=== PATIENT | male | born 1965 | race Caucasian/White ===

== ENCOUNTER → 2020-07-26 15:56 | Outpatient (CLI) | payer MEDICARE, MEDICAID, SELFPAY ==
[2016-04-30 12:49] VITALS: BMI 29.2
[2020-07-26 16:58] LABS: Absolute Lymphocyte Count 2.26 X10^3/uL (0.83-4.51); Absolute Neutrophil Count 4.5 X10^3/uL (2.0-7.7); Basophil# 0.04 X10^3/uL; Basophil% 0.5 % (0-1); Eosinophil# 0.14 X10^3/uL; Eosinophils% 1.8 % (0-5); Hematocrit 54.5 % (40-54); Hemoglobin 17.7 g/dL (13.0-16.5); Lymphocyte # 2.26 X10^3/ul (4.0); Lymphocyte % 29.4 % (19-41); Mean Corp Hgb Conc 32.5 g/dL (32-36); Mean Corpuscular Hgb 28.4 pg (27.0-32.0); Mean Corpuscular Volume 87.5 fL (80-94); Mean Platelet Vol. 12.3 fl (6.2-12.0); Monocyte# 0.69 X10^3/uL; NRBC Flagged by Analyzer 0 % (0-5); Neutrophil # 4.54 X10^3/uL (2.7-7.7); Neutrophil % 58.9 % (47-70); Platelet Count 202 K/mm3 (150-450); RBC Distribution Width CV 13.1 % (11.6-14.6); RBC Distribution Width SD 41.5 fl (35.1-43.9); Red Blood Count 6.23 M/mm3 (4.6-6.2); White Blood Count 7.7 K/mm3 (4.4-11.0)
[2020-07-26 17:40] LABS: AST(SGOT) 20 U/L (15-37); Alanine Aminotransfer ALT/SGPT 49 U/L (16-61); Albumin, Serum 3.8 g/dL (3.2-5.0); Alkaline Phosphatase 80 U/L (45-117); Anion Gap 5 (5-15); BUN 12 mg/dL (7-18); BUN/Creat Ratio 10.2 RATIO (10-20); Calcium,Total 9.7 mg/dL (8.5-10.1); Chloride 105 mmol/L (98-107); Creatinine, Serum 1.18 mg/dL (0.70-1.30); EST Glomerular Filtration Rate 68 mL/min (>60); Est Glom Filt Rate - Afr Amer 82 mL/min (>60); Globulin 3.9 g/dL (2.2-4.2); Glucose 355 mg/dL (74-106); PSA,Total - Annual Screen 1.49 ng/mL (0.00-4.00); Potassium 4.1 mmol/L (3.5-5.1); Protein, Total 7.7 g/dL (6.4-8.2); Sodium Level 137 mmol/L (136-145); Thyroid Stim Hormone (TSH) 1.23 uIU/mL (0.358-3.74)
[2020-07-27 09:17] LABS: Hepatitis C Antibody Non-Reactive (Nonreactive); Vitamin D,25 Hydroxy 10.4 ng/mL
== END ==
PROVIDERS: PCP Family Medicine Geriatric Medicine; Referring Provider Family Medicine Geriatric Medicine; Visit Provider Family Medicine Geriatric Medicine
DX: E55.9 Vitamin D deficiency, unspecified (principal); R53.83 Other fatigue; Z12.5 Encounter for screening for malignant neoplasm of prostate; Z13.89 Encounter for screening for other disorder
CPT/HCPCS: 36415; 80053; 82306; 84153; 84443; 85025; 86803; G0103

== ENCOUNTER → 2020-08-25 07:43 | Outpatient (CLI) | payer MEDICARE, MEDICAID, SELFPAY ==
--- NOTE | 2020-08-25 07:49 | CT_ITS ---
STUDY: LOW DOSE CT LUNG CANCER SCREENING REASON FOR EXAM: Male, 55 years old. CANCER SCREENING. The patient smoked 1 pack per day for 30 years. RADIATION DOSAGE (If Supplied By Facility): CTDIvol = ( 3.02 ) mGy, DLP = ( 101.94 ) mGycm TECHNIQUE: No contrast was administered. Low dose technique was utilized (average mAS-38 and kVp 120). 1.25 mm axial source images with a slice interval of 1.25-mm were reconstructed in lung windows. 2.5 mm axial source images with a slice interval of 2.5-mm were reconstructed in lung windows. 5.0 mm axial source images with a slice interval of 5.0-mm were reconstructed in soft tissue windows. Nodule measured using lung windows on PACS and/or independent workstation with automated measurement of minimum and maximum diameter. Nodule measurement reported as average diameter rounded to the nearest whole number. Growth is defined as an increase ins size of greater than 1.5 mm. COMPARISON: None. NODULES: There is a 1.3 cm x 1.4 cm noncalcified pleural-based round nodule in the right lower lobe abutting the pleural surface. This was seen on a prior CT scan of the abdomen and pelvis dated 04/30/2016 and 10/21/2015. Emphysema: Minimal emphysematous changes. Aorta: Minimal atherosclerotic plaque of the aortic arch. Coronary arteries: Coronary artery calcification. Mediastinal nodes: Small mediastinal lymph nodes. Other chest and abdominal findings: CT/Low Dose CT Lung Screening IMPRESSION: Lung-RADS category 3 - Continue screening with LDCT in 6 months. IMPORTANT NOTES FOR USE: ACR Lung-RADS Version 1.0 Assessment Categories Release Date: September 27, 2013 Category: Coded 0-4 bases on nodule(s) with highest degree of suspicion. Negative screen is defined as categories 1 and 2; a positive screen is defined as categories 3 and 4. Category 3 and 4A nodules that are unchanged on interval CT should be coded as category 2, and individuals returned to screening in 12 months. Category 4X: Category 3 or 4 nodules with additional imaging findings that increase the suspicion of lung cancer, such as spiculation, GGN that doubles in size in 1 year, enlarged lymph notes, etc. Category Modifiers: S (significant finding unrelated to lung cancer) and C (prior history of treated lung cancer) may be added to the 0-4 Lung-RADS Electronically Signed: Keshawn Bolivar MD at 11:26 EDT , Service support ,
== END ==
PROVIDERS: PCP Family Medicine Geriatric Medicine; Referring Provider Family Medicine Geriatric Medicine; Visit Provider Family Medicine Geriatric Medicine
DX: Z12.2 Encounter for screening for malignant neoplasm of respiratory organs (principal); Z87.891 Personal history of nicotine dependence
CPT/HCPCS: 71271

== ENCOUNTER → 2020-10-06 11:23 | Outpatient (CLI) | payer MEDICARE, MEDICAID, SELFPAY | PROVIDERS: PCP Family Medicine Geriatric Medicine; Visit Provider Family Medicine Geriatric Medicine | DX: E29.1 Testicular hypofunction (principal) | CPT/HCPCS: 36415; 84403 ==

== ENCOUNTER → 2020-11-10 10:47 | Outpatient (CLI) | payer MEDICARE, SELFPAY ==
[2016-04-30 12:49] VITALS: BMI 29.2
[2020-11-10 12:18] LABS: Absolute Lymphocyte Count 2.28 X10^3/uL (0.83-4.51); Absolute Neutrophil Count 5.8 X10^3/uL (2.0-7.7); Basophil# 0.05 X10^3/uL; Basophil% 0.6 % (0-1); Eosinophil# 0.17 X10^3/uL; Eosinophils% 1.9 % (0-5); Hematocrit 47.3 % (40-54); Hemoglobin 15.3 g/dL (13.0-16.5); Lymphocyte # 2.28 X10^3/ul (0.83-4.51); Lymphocyte % 25.3 % (19-41); Mean Corp Hgb Conc 32.3 g/dL (32-36); Mean Corpuscular Hgb 28.3 pg (27.0-32.0); Mean Corpuscular Volume 87.4 fL (80-94); Mean Platelet Vol. 11.9 fl (6.2-12.0); Monocyte# 0.67 X10^3/uL; Monocyte% 7.4 % (0-10); NRBC Flagged by Analyzer 0 % (0-5); Neutrophil % 64.4 % (47-70); Platelet Count 236 K/mm3 (150-450); RBC Distribution Width CV 14.6 % (11.6-14.6); RBC Distribution Width SD 47.2 fl (35.1-43.9); Red Blood Count 5.41 M/mm3 (4.6-6.2)
[2020-11-10 12:35] LABS: ALB/GLOB Ratio 0.9 RATIO (0.9-2.4); AST(SGOT) 18 U/L (15-37); Alanine Aminotransfer ALT/SGPT 30 U/L (16-61); Albumin, Serum 3.4 g/dL (3.2-5.0); Alkaline Phosphatase 64 U/L (45-117); Anion Gap 5 (5-15); BUN 15 mg/dL (7-18); BUN/Creat Ratio 11.6 RATIO (10-20); Calcium,Total 9.7 mg/dL (8.5-10.1); Chloride 105 mmol/L (98-107); Creatinine, Serum 1.29 mg/dL (0.70-1.30); EST Glomerular Filtration Rate 61 mL/min (>60); Est Glom Filt Rate - Afr Amer 74 mL/min (>60); Globulin 3.9 g/dL (2.2-4.2); Glucose 322 mg/dL (74-106); Potassium 4.3 mmol/L (3.5-5.1); Protein, Total 7.3 g/dL (6.4-8.2); Sodium Level 133 mmol/L (136-145); Thyroid Stim Hormone (TSH) 1.22 uIU/mL (0.358-3.74)
== END ==
PROVIDERS: PCP Family Medicine Geriatric Medicine; Visit Provider Family Medicine Geriatric Medicine
DX: E11.9 Type 2 diabetes mellitus without complications (principal); I10 Essential (primary) hypertension; F52.8 Other sexual dysfunction not due to a substance or known physiological condition
CPT/HCPCS: 36415; 80053; 84403; 84443; 85025

== ENCOUNTER 2020-12-27 06:57 | Outpatient (RCR) | payer MEDICARE, MEDICAID, SELFPAY ==
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
== END 2020-12-27 19:00 | disposition home or self-care (01) ==
LOC: PT 06:57
PROVIDERS: PCP Family Medicine Geriatric Medicine; Referring Provider Family Medicine Geriatric Medicine; Visit Provider Family Medicine Geriatric Medicine
DX: Z89.612 Acquired absence of left leg above knee (principal)
CPT/HCPCS: 97161

== ENCOUNTER → 2021-01-19 10:22 | Outpatient (CLI) | payer MEDICARE, MEDICAID, SELFPAY ==
--- NOTE | 2021-01-19 12:19 | NEURO_ITS ---
NCS and/or EMG Patient Report Ordering Doctor: Miquel Morfin Chi DATE OF SERVICE: 01/19/21 Indication: Bilateral hand numbness. History of diabetes and prior cervical decompression/fusion. Evaluate for entrapment neuropathy. Findings: Nerve conduction studies were performed in the right and left upper extremities. The right median motor study recording the abductor pollicis brevis showed a reduced amplitude, prolonged distal latency and slowed conduction velocity. The right ulnar motor study recording the abductor digiti minimi showed a markedly reduced amplitude, prolonged distal latency and slowed conduction velocity in the forearm segment (no response could be obtained above the elbow). The right median sensory response recording digit two showed a reduced amplitude, prolonged latency and markedly slowed conduction velocity. The right ulnar sensory response recording digit five was absent. The right radial sensory response recording over the extensor snuff box showed a reduced amplitude, borderline latency and mildly slowed conduction velocity. Right median-ulnar lumbrical / interosseous motor latencies showed a prolonged median latency compared to the ulnar. The left median motor study recording the abductor pollicis brevis showed a borderline amplitude, prolonged distal latency and slowed conduction velocity. The left ulnar motor study recording the abductor digiti minimi showed a reduced amplitude, slowed distal latency and slowed conduction velocity. No conduction block or focal slowing was present across the elbow. The left median sensory response recording digit two showed a reduced amplitude, prolonged latency and markedly slowed conduction velocity. The left ulnar sensory response recording digit five showed a slightly reduced amplitude, prolonged latency and slowed conduction velocity. The left radial sensory response recording over the extensor snuff box showed a reduced amplitude, normal latency and slowed conduction velocity. Left median-ulnar lumbrical / interosseous motor latencies showed a prolonged median latency compared to the ulnar. Needle EMG of the right upper extremity muscles was performed. The cervical paraspinal were not sampled due to the patient history of diabetes and the common presence of fibrillations in that population. Active denervation was seen in the abductor pollicis brevis. In the deltoid and triceps motor units were slightly large amplitude and long duration with normal recruitment. In the abductor pollicis brevis and first dorsal interosseous motor units were large amplitude and long duration with reduced recruitment. The extensor indicis proprius was normal in motor unit morphology, activation and recruitment patte rns. Needle EMG of the left upper extremity muscles was performed. Active denervation was seen in the abductor pollicis brevis and first dorsal interosseous. In the abductor pollicis brevis, flexor digitorum profundus (ulnar) and first dorsal interosseous motor units were large amplitude and long duration with reduced recruitment. The other examined muscles revealed normal motor unit morphology, activation and recruitment patterns. Impression: This is a markedly abnormal and complex study. 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 The pathophysiology is demyelinating, but there is evidence of acute and chronic secondary axonal loss. In addition there is electrophysiologic evidence of bilateral, non-localizing, ulnar neuropathies (severe on the right, moderate on the left). The reinnervation changes seen in the left flexor digitorum profundus implicates a lesion above the wrist. The chronic changes seen in the right deltoid and triceps are non-specific, but may be related to his remote cervical radiculopathy. Lastly, the diffusely low sensory amplitudes and reduced velocities are suggestive of an underlying peripheral polyneuropathy. This was not fully evaluated as it was not the indication for this study. Clinical correlation is recommended. Adrian Guerra D.O.
== END ==
PROVIDERS: PCP Family Medicine Geriatric Medicine; Referring Provider Family Medicine Geriatric Medicine; Visit Provider Family Medicine Geriatric Medicine
DX: R20.9 Unspecified disturbances of skin sensation (principal); R20.0 Anesthesia of skin
CPT/HCPCS: 95886; 95913

== ENCOUNTER → 2021-04-10 14:45 | Outpatient (CLI) | payer MEDICARE, MEDICAID, SELFPAY ==
[2021-04-10 16:14] LABS: Absolute Lymphocyte Count 2.03 X10^3/uL (0.83-4.51); Absolute Neutrophil Count 12.6 X10^3/uL (2.0-7.7); Basophil% 0.6 % (0-1); Eosinophil# 0.22 X10^3/uL; Eosinophils% 1.4 % (0-5); Hematocrit 54.4 % (40-54); Hemoglobin 17.7 g/dL (13.0-16.5); Lymphocyte # 2.03 X10^3/ul (0.83-4.51); Lymphocyte % 12.6 % (19-41); Mean Corp Hgb Conc 32.5 g/dL (32-36); Mean Corpuscular Hgb 27.4 pg (27.0-32.0); Mean Corpuscular Volume 84.3 fL (80-94); Mean Platelet Vol. 10.1 fl (6.2-12.0); Monocyte# 0.82 X10^3/uL; Monocyte% 5.1 % (0-10); NRBC Flagged by Analyzer 0 % (0-5); Neutrophil # 12.59 X10^3/uL (2.7-7.7); Neutrophil % 78.1 % (47-70); Platelet Count 316 K/mm3 (150-450); RBC Distribution Width CV 15.4 % (11.6-14.6); RBC Distribution Width SD 45.8 fl (35.1-43.9); Red Blood Count 6.45 M/mm3 (4.6-6.2); White Blood Count 16.1 K/mm3 (4.4-11.0)
[2021-04-10 16:37] LABS: Anion Gap 10 (5-15); BUN 23 mg/dL (7-18); BUN/Creat Ratio 14.7 RATIO (10-20); Calcium,Total 10.7 mg/dL (8.5-10.1); Chloride 100 mmol/L (98-107); Creatinine, Serum 1.56 mg/dL (0.70-1.30); EST Glomerular Filtration Rate 49 mL/min (>60); Est Glom Filt Rate - Afr Amer 60 mL/min (>60); Glucose 301 mg/dL (74-106); Potassium 5.2 mmol/L (3.5-5.1); Sodium Level 126 mmol/L (136-145)
[2021-04-10 17:40] LABS: M R Staph aureus DNA By PCR POSITIVE (Negative); Probe Check PASS; Staph aureus DNA By PCR POSITIVE (Negative)
== END ==
PROVIDERS: PCP Family Medicine Geriatric Medicine; Visit Provider Family Medicine Geriatric Medicine
DX: L03.90 Cellulitis, unspecified (principal); B95.62 Methicillin resistant Staphylococcus aureus infection as the cause of diseases classified elsewhere
CPT/HCPCS: 36415; 80048; 85025; 87070; 87077; 87186; 87205; 87640

== ENCOUNTER → 2021-04-11 14:17 | Outpatient (CLI) | payer MEDICARE, MEDICAID, SELFPAY ==
[2021-04-11 17:23] LABS: Absolute Lymphocyte Count 2.97 X10^3/uL (0.83-4.51); Absolute Neutrophil Count 9.3 X10^3/uL (2.0-7.7); Basophil# 0.08 X10^3/uL; Basophil% 0.6 % (0-1); Eosinophils% 1.5 % (0-5); Hematocrit 54.4 % (40-54); Hemoglobin 17.3 g/dL (13.0-16.5); Lymphocyte # 2.97 X10^3/ul (0.83-4.51); Lymphocyte % 21.6 % (19-41); Mean Corp Hgb Conc 31.8 g/dL (32-36); Mean Corpuscular Hgb 27.7 pg (27.0-32.0); Monocyte# 0.92 X10^3/uL; Monocyte% 6.7 % (0-10); NRBC Flagged by Analyzer 0 % (0-5); Neutrophil % 67.7 % (47-70); Platelet Count 261 K/mm3 (150-450); RBC Distribution Width CV 15.1 % (11.6-14.6); RBC Distribution Width SD 47.9 fl (35.1-43.9); Red Blood Count 6.25 M/mm3 (4.6-6.2); White Blood Count 13.7 K/mm3 (4.4-11.0)
[2021-04-11 17:43] LABS: Anion Gap 8 (5-15); BUN 23 mg/dL (7-18); BUN/Creat Ratio 20.2 RATIO (10-20); Calcium,Total 9.5 mg/dL (8.5-10.1); Chloride 105 mmol/L (98-107); Creatinine, Serum 1.14 mg/dL (0.70-1.30); EST Glomerular Filtration Rate 71 mL/min (>60); Est Glom Filt Rate - Afr Amer 86 mL/min (>60); Glucose 181 mg/dL (74-106); Potassium 4.8 mmol/L (3.5-5.1); Sodium Level 130 mmol/L (136-145)
== END ==
PROVIDERS: PCP Family Medicine Geriatric Medicine; Visit Provider Family Medicine Geriatric Medicine
DX: B95.62 Methicillin resistant Staphylococcus aureus infection as the cause of diseases classified elsewhere (principal)
CPT/HCPCS: 36415; 80048; 85025; 87040

== ENCOUNTER 2021-04-12 10:37 | Inpatient (IN) | payer MEDICARE, MEDICAID, SELFPAY ==
[2021-04-12 10:39] VITALS: BP 118/100; PULSE 108; RESP 16; TEMP 35.9; O2SAT 98; BMI 27.8
--- NOTE | 2021-04-12 11:21 | EDS_ITS ---
HPI History of Present Illness Chief Complaint: Other, Pain/Inj Detail of Chief Complaint: Right knee abscess with failed outpatient therapy Informant: patient Narrative Narrative: Patient presents to the emergency department from his PCPs office with concern for a right knee abscess with failed outpatient therapy. Patient states that he has a history of MRSA. Several weeks ago he developed a left ear infection that was believed to be due to MRSA. 5 days ago he developed redness and swelling to the right knee. He had antibiotics starting April 10 and had a visit with his PCP today that concern that he would need IV therapy and possible I&D. Patient also has other small abscesses involving his abdominal wall. Patient has had subjective fever and chills and sweats at home. Prior similar symptoms: Yes PFSH PFSH Home Medications levofloxacin [Levaquin] 750 mg PO DAILY #7 tab 10/21/15 [Rx Last Taken Unknown] Allergy/AdvReac Type Severity Reaction Status Date / Time Penicillins [PCN] Allergy Unknown Verified 04/30/16 12:51 Social History Smoking Status: Current every day smoker tobacco type: cigarettes ROS ROS ED Constitutional Constitutional ED: Reports systems reviewed and no addt'l complaints, except as documented; Denies body ache(s), change in weight or chills Eyes Eyes: Denies acute decrease in peripheral vision, change in vision, double vision or loss of vision ENT ENT ED: Reports none; Denies ear pain, lip swelling, loss taste/smell, neck pain, otalgia or sore throat Cardiovascular Cardiovascular: Reports none; Denies abdominal pain, chest pain with activity, leg edema, lightheadedness, palpitations, rapid heart rate or syncope Respiratory/Chest Respiratory/Chest: Reports none; Denies change in mental status, dry cough, dyspnea, hemoptysis, shortness of breath at rest or shortness of breath with exertion Gastrointestinal Gastrointestinal: Reports none; Denies abdominal pain, change in stool character, diarrhea, hematemesis, hematochezia, melena, rectal bleeding or vomiting Genitourinary Genitourinary ED: Reports none; Denies abdominal discomfort, anuria, dysuria, genital pain or polyuria Musculoskeletal Musculoskeletal: Reports none and other Details: Right knee redness and swelling ; Denies arthralgias, back pain, difficulty walking, extremity pain, muscle weakness or myalgias Integumentary Reports none; Denies abscess or rash Neurologic Neurologic: Reports none; Denies abnormal gait, confusion, focal weakness, frequent falls, headache(s), loss of vision, numbness, paresthesias, radicular pain, vertigo or weakness Psychiatric Psychiatric: Reports systems reviewed and no addt'l complaints, except as documented and none; Denies behavioral changes, confusion, difficulty concentrating, hallucinations, suicidal ideation, tactile hallucinations or visual hallucinations Endocrine Endocrinology: Denies none, cold intolerance, excessive sweating, fatigue or heat intolerance Hematologic/Lymphatic Hematologic/Lymphatic: Reports none; Denies anemia, easy bleeding or easy bruising Allergic/Immunologic Allergic/Immunologic ED: Denies as per HPI, none, lip swelling, mouth swelling, throat swelling, tongue swelling or hives EXAM Physical Exam Const Vital Signs: 04/12/21 10:39 04/12/21 11:54 04/12/21 11:57 Temperature 96.7 F L 96.7 F L Temperature Source Temporal Temporal Pulse Rate 108 H 108 H Respiratory Rate 16 16 Respiratory Effort Normal Non-Labored Respiratory Pattern Normal Blood Pressure 118/100 H 118/100 H Blood Pressure Mean 106 106 Pulse Ox 98 98 Oxygen Delivery Method Room Air Room Air 04/12/21 12:36 Temperature 98.2 F Temperature Source Oral Pulse Rate 97 Respiratory Rate 15 Respiratory Effort Respiratory Pattern Blood Pressure 148/81 H Blood Pressure Mean 103 Pulse Ox 96 Oxygen Delivery Method Room Air Positive well nourished and well developed General Appearance ED: well developed and NAD HEENT Reports TM's clear and moist mucous membranes normocephalic and atraumatic; Negative for trauma or tenderness Tympanic Membrane ED: Yes TM's clear Eyes PERRL and EOMs intact bilaterally General Eye ED: Negative for pale conjunctiva or scleral icterus Neck no lymphadenopathy, supple and no JVD General: Negative for tenderness Chest Wall inspection of chest normal and palpation of chest normal Chest: Negative for tenderness Resp normal respiratory effort and clear to auscultation bilaterally Effort and Inspection: Negative for respiratory distress or pain with movement Auscultation: Negative for rhonchi, wheezes or diminished lung sounds Cardio regular rate, regular rhythm, S1 normal heart sound, S2 normal heart sound and no murmurs Peripheral Pulses: pulses 2+ throughout GI normal to inspection, nondistended, normoactive bowel sounds, soft to palpation, non-tender, non-distended and no masses Back/Spine no CVA tenderness and no thoracic nor lumbar tenderness Extremity normal to inspection General Extremety ED: Negative for edema General Extremity: Negative for edema Neuro oriented x3, CN's II-XII intact bilaterally, no sensory deficits noted and gait normal Sensorium / Orientation: awake, alert, oriented to person, oriented to place and oriented to time Motor Exam: strength 5/5 throughout and strength abnormal Psych mental status grossly normal Skin Skin Narrative: Patient has an area of diffuse erythema to the anterior lateral aspect of the right knee measuring approximately 8 x 6 cm. No real significant fluctuant areas noted. Patient is able to flex and extend the knee. No lymphangitic streaking noted. Neurovascular intact distally. Evaluation of his abdomen does reveal several small excoriated lesions involving the right and left sides of the abdomen suspicious for MRSA infection without significant cellulitis. MDM MDM MDM Narrative Medical decision making narrative: IV line established on arrival. Patient was started on vancomycin IV. Case discussed with hospitalist who asked that I obtain a CT scan of his knee which was performed and did not show any evidence of abscess but superficial skin changes. This point he will be admitted for IV antibiotics for cellulitis right knee with failed outpatient therapy. Lab Data Attestation: I reviewed the patient's lab results. Labs: Laboratory Results - last 24 hr 04/12/21 04/12/21 04/12/21 11:58 11:58 11:58 WBC 14.6 H RBC 6.12 Hgb 16.8 H Hct 52.9 MCV 86.4 MCH 27.5 MCHC 31.8 L RDW Std Deviation 46.8 H RDW Coeff of Ara 15.1 H Plt Count 319 MPV 9.8 Immature Gran % (Auto) 1.600 H Neut % (Auto) 71.9 H Lymph % (Auto) 18.4 L Villalba % (Auto) 6.2 Eos % (Auto) 1.3 Baso % (Auto) 0.6 Absolute Neuts (auto) 10.5 H Absolute Lymphs (auto) 2.69 Nucleated RBC % 0 Sodium 131 L Potassium 4.4 Chloride 99 Carbon Dioxide 24.0 Anion Gap 8 BUN 21 H Creatinine 1.19 Estim Creat Clear Calc 74.70 Est GFR (MDRD) Af Amer 81 Est GFR (MDRD) Non-Af 67 BUN/Creatinine Ratio 17.6 Glucose 275 H Lactic Acid 2.3 H* Calcium 10.0 C-React Prot Ext Range 5.89 H Radiography Diagnostic Testing: Clinical Impression(s) from Imaging Studies Lower Extremity CT 04/12/21 12:26 IMPRESSION: Status post open reduction internal fixation of the proximal tibial plateau fracture with healing of the fracture. Overlying skin anterior skin thickening and increased markings in the subcutaneous tissues without focal abscess or fluid collection. Electronically Signed: Keshawn Bolivar MD at 13:13 EST , Service support , Discharge Plan Triage Chief Complaint: Other, Pain/Inj ED Provider: Cuco Whitt Dx/Rx/DC Orders Clinical Impression: Cellulitis of right leg Prescriptions: No Action levofloxacin [Levaquin] 750 MG tablet 750 mg PO DAILY Qty: 7 RF: 0 Primary Care Provider: Miquel Morfin Chi Referrals: Miquel Morfin Chi, MD [Primary Care Provider] - Disposition Disposition: Acute Care Hospital [facility]
[2021-04-12 11:57] VITALS: BP 118/100; PULSE 108; RESP 16; TEMP 35.9; O2SAT 98
[2021-04-12 12:15] LABS: Absolute Lymphocyte Count 2.69 X10^3/uL (0.83-4.51); Absolute Neutrophil Count 10.5 X10^3/uL (2.0-7.7); Basophil# 0.09 X10^3/uL; Basophil% 0.6 % (0-1); Eosinophil# 0.19 X10^3/uL; Eosinophils% 1.3 % (0-5); Hematocrit 52.9 % (40-54); Hemoglobin 16.8 g/dL (13.0-16.5); Lymphocyte # 2.69 X10^3/ul (0.83-4.51); Lymphocyte % 18.4 % (19-41); Mean Corp Hgb Conc 31.8 g/dL (32-36); Mean Corpuscular Hgb 27.5 pg (27.0-32.0); Mean Corpuscular Volume 86.4 fL (80-94); Mean Platelet Vol. 9.8 fl (6.2-12.0); Monocyte# 0.91 X10^3/uL; Monocyte% 6.2 % (0-10); NRBC Flagged by Analyzer 0 % (0-5); Neutrophil # 10.53 X10^3/uL (2.7-7.7); Neutrophil % 71.9 % (47-70); Platelet Count 319 K/mm3 (150-450); RBC Distribution Width CV 15.1 % (11.6-14.6); RBC Distribution Width SD 46.8 fl (35.1-43.9); Red Blood Count 6.12 M/mm3 (4.6-6.2); White Blood Count 14.6 K/mm3 (4.4-11.0)
--- NOTE | 2021-04-12 12:26 | CT_ITS ---
STUDY: CT RIGHT KNEE WITH CONTRAST REASON FOR EXAM: Male, 55 years old. Abscess, joint infection RADIATION DOSAGE (If Supplied By Facility): CTDIvol = ( 12.28 ) mGy, DLP = ( 630.96 ) mGycm TECHNIQUE: Transaxial CT imaging of the knee was performed post contrast administration. The examination was performed with intravenous administration of IV 100mL Isovue-300. Individualized dose optimization techniques were used for this CT. COMPARISON: None. FINDINGS: There is demineralization of the distal femur more pronounced at the level of the lateral femoral condyle. Mild degree of joint space narrowing of the medial compartment of knee joint. The patient is status post open reduction internal fixation with screw and sideplate fixation device of the lateral tibial plateau. The metallic screw extends to the medial tibial plateau. There is healing of the fracture. This is also evidence of a healing fracture of the proximal fibular neck. There is preservation of the articular joint space of the lateral knee compartment. Normal proximal tibiofibular articulation. There is no joint effusion. There is no demonstrated abnormal enhancement. The quadriceps tendon is grossly normal. The patellar tendon is grossly normal. Normal Hoffa''s fat pad. There is diffuse anterior prepatellar soft tissue swelling with evidence of a overlying skin thickening and increased markings in the subcutaneous fat. No focal abscess or fluid collection is seen. CT/Extremity Lower WITH Contrast IMPRESSION: Status post open reduction internal fixation of the proximal tibial plateau fracture with healing of the fracture. Overlying skin anterior skin thickening and increased markings in the subcutaneous tissues without focal abscess or fluid collection. Electronically Signed: Keshawn Bolivar MD at 13:13 EST , Service support ,
[2021-04-12 12:27] LABS: Anion Gap 8 (5-15); BUN 21 mg/dL (7-18); BUN/Creat Ratio 17.6 RATIO (10-20); CRP 5.89 mg/L (0.0-3.0); Chloride 99 mmol/L (98-107); Creatinine, Serum 1.19 mg/dL (0.70-1.30); EST Glomerular Filtration Rate 67 mL/min (>60); Est Glom Filt Rate - Afr Amer 81 mL/min (>60); Glucose 275 mg/dL (74-106); Potassium 4.4 mmol/L (3.5-5.1); Sodium Level 131 mmol/L (136-145)
[2021-04-12 12:36] VITALS: BP 148/81; PULSE 97; RESP 15; TEMP 36.8; O2SAT 96
[2021-04-12 12:46] LABS: Lactic Acid 2.3 mmol/L (0.4-1.9)
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
[2021-04-12 14:34] VITALS: BP 122/82; PULSE 86; RESP 15; TEMP 36.4; O2SAT 96
[2021-04-12 15:04] VITALS: BP 125/80; PULSE 105; RESP 18; TEMP 36.9; O2SAT 96; BMI 28.3
--- NOTE | 2021-04-12 15:43 | WOUNDNOTE ---
skin photo: right knee
--- NOTE | 2021-04-12 15:44 | WOUNDNOTE ---
wound photo: abdomen
--- NOTE | 2021-04-12 15:45 | WOUNDNOTE ---
Pt states the area that is draining in the left upper abdomen is where he had a previous feeding tube a few years ago.
[2021-04-12] MEDS: 0.9% Normal Saline 1,000 ML 100 ML IV (15:46)
--- NOTE | 2021-04-12 15:59 | PCM.RX.CS ---
Consult Pharmacy has been consulted to manage selected antiobiotic: Vancomycin Type of Consult: New start Suspected Infection: Skin/Soft tissue, Other - ABSCESS Labs: Sodium 131 mmol/L (136-145) L 04/12/21 11:58 Potassium 4.4 mmol/L (3.5-5.1) 04/12/21 11:58 Chloride 99 mmol/L (98-107) 04/12/21 11:58 Carbon Dioxide 24.0 mmol/L (21.0-32.0) 04/12/21 11:58 Anion Gap 8 (5-15) 04/12/21 11:58 BUN 21 mg/dL (7-18) H 04/12/21 11:58 Creatinine 1.19 mg/dL (0.70-1.30) 04/12/21 11:58 Est GFR (MDRD) Af Amer 81 mL/min (>60) 04/12/21 11:58 Est GFR (MDRD) Non-Af 67 mL/min (>60) 04/12/21 11:58 BUN/Creatinine Ratio 17.6 RATIO (10-20) 04/12/21 11:58 Glucose 275 mg/dL (74-106) H 04/12/21 11:58 Pharmacy Plan for Drug Dosing: NEW START IV VANCOMYCIN Consulting Physician: Adrienne DELATORRE Indication: CELLULITIS/ABSCESS Goal Trough: 15-20 MG/DL SrCr: 1.19 MG/DL CrCl: 74.7 ML/MIN Comments: ER DOSE OF 1250MG (15 MG/KG) GIVEN 04/12 @ 1227 Vancomycin Dose: WILL START 1250MG Q12H 04/13 @ 0030 PER POLICY. WILL ORDER A TROUGH PRIOR TO THE 4TH DOSE. Pending Level: 04/14/21 @ 0000 Pharmacy Service will continue to monitor and adjust dosing as required.
[2021-04-12 16:10] LABS: Reflex Lactate? Y
[2021-04-12 16:36] LABS: Bedside Glucose 263 mg/dL (70-110)
[2021-04-12] MEDS: Gabapentin 300 MG Capsule PO (17:42)
[2021-04-12] MEDS: Insulin Lispro 100 UNIT/ML INSULN.PEN SC (17:45)
[2021-04-12 20:44] VITALS: BP 111/75; PULSE 104; RESP 18; TEMP 36.9; O2SAT 96
[2021-04-12] MEDS: Atorvastatin Calcium 80 MG Tablet PO (20:54)
[2021-04-12 22:30] LABS: Bedside Glucose 185 mg/dL (70-110)
[2021-04-13 02:39] VITALS: BP 114/70; PULSE 95; RESP 18; TEMP 36.8; O2SAT 96
[2021-04-13 06:30] LABS: Absolute Neutrophil Count 8.7 X10^3/uL (2.0-7.7); Basophil# 0.05 X10^3/uL; Basophil% 0.4 % (0-1); Eosinophil# 0.18 X10^3/uL; Eosinophils% 1.5 % (0-5); Hematocrit 49.6 % (40-54); Hemoglobin 15.8 g/dL (13.0-16.5); Lymphocyte % 15.2 % (19-41); Mean Corp Hgb Conc 31.9 g/dL (32-36); Mean Corpuscular Hgb 27.9 pg (27.0-32.0); Mean Corpuscular Volume 87.5 fL (80-94); Mean Platelet Vol. 9.5 fl (6.2-12.0); Monocyte# 0.92 X10^3/uL; Monocyte% 7.7 % (0-10); NRBC Flagged by Analyzer 0 % (0-5); Neutrophil # 8.72 X10^3/uL (2.7-7.7); Neutrophil % 73.4 % (47-70); Platelet Count 269 K/mm3 (150-450); Red Blood Count 5.67 M/mm3 (4.6-6.2); White Blood Count 11.9 K/mm3 (4.4-11.0)
[2021-04-13 06:44] LABS: Anion Gap 5 (5-15); BUN 17 mg/dL (7-18); BUN/Creat Ratio 17.1 RATIO (10-20); Calcium,Total 9.4 mg/dL (8.5-10.1); Chloride 105 mmol/L (98-107); EST Glomerular Filtration Rate 83 mL/min (>60); Est Glom Filt Rate - Afr Amer 100 mL/min (>60); Glucose 160 mg/dL (74-106); Magnesium 2.6 mg/dL (1.6-2.6); Phosphorus 2.2 mg/dL (2.5-4.9); Potassium 4.4 mmol/L (3.5-5.1); Sodium Level 134 mmol/L (136-145)
[2021-04-13] MEDS: Insulin Lispro 100 UNIT/ML INSULN.PEN SC ×3 (06:53→17:42)
[2021-04-13 07:01] LABS: Bedside Glucose 195 mg/dL (70-110)
[2021-04-13 07:59] LABS: Hemoglobin A1c 11.1 % (3.8-5.6)
[2021-04-13] MEDS: Gabapentin 300 MG Capsule PO ×3 (08:25→17:42)
[2021-04-13 08:30] VITALS: BP 124/81; PULSE 93; RESP 18; TEMP 36.7; O2SAT 95
[2021-04-13] MEDS: Lisinopril 5 MG Tablet PO (08:41)
[2021-04-13] MEDS: CHLORHEXIDINE GLUC 2% CLOTH 1 EACH TOWELETTE TOPICAL (08:44)
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
[2021-04-13] MEDS: 0.9% Saline Lock 10 ML Syringe IV (11:38)
--- NOTE | 2021-04-13 11:45 | CASEMGMT ---
Addendum entered by Brooke Alberto 04/13/21 16:16: Per Gracy at [facility], able to accept pt, pending IV atb. Addendum entered by Brooke Alberto 04/13/21 15:46: Pt chose [facility]. TC to Gracy to make referral for diabetic education. She will look at referral and notify this RN CM of acceptance. Made aware pt could possibly need IV's. Will have to discuss on Friday for SOC for this if this is the case. Addendum entered by Brooke Alberto 04/13/21 12:01: Pt states he does not check his blood sugars. He states he does not have any supplies, notified Dr. Barrera that pt will need script for glucometer and supplies. Pt will also be going home on insulin as well. Pt is agreeable to have [facility] nurse come in as he does not know how to check blood sugars. Pt is not aware of insulin yet, but [facility] nurse can also educate on this. Patient was provided a list of [facility] providers including quality and resource use data and consistent with the patient?s preferred geographic region, medical needs, and insurance network. Pt to review and RN CM to check back on preferred agency. Original Note: RN CM Assessment: Face to Face with pt for initial transition planning/care coordination assessment. RN CM introduced self and role at [facility], pt voices understanding and consents to assessment. Pt is A/O x4 and answers all questions appropriately at this time. Pt lying in bed in no distress with Pattie nurse at bedside. Care providers, pharmacy, and demographics verified/updated. Admitting Dx: MRSA Wound Infection PCP:[facility] Specialists:Abiola Saenz, ortho surgeon; seeing ENT but unsure of name. [facility] Insurance: [facility], [facility] Prescription Benefit: yes LW/HPOA: Pt states he has a DPOA and it is his mother. He is aware that it is not on file at [facility] and may bring in to be scanned into the chart. LNOK: Catherine Pierre, mother Living Arrangements: Pt lives with mother in a single story house with two steps to enter with a rail. Pt reports he is I in ADL's and denies concerns at home. Transportation: Pt drives self and denies concerns with transportation. DME/HHC/SNF: Pt has a w/c and shower chair at home. Pt denies having hx of [facility] but has been at [facility]. Pt states no concerns with going home at time of dc. Discussed if it is recommended that pt have IV atb if he would prefer to do this at home, pt states he would. He states he has nurse friends who can help and would be agreeable to [facility]. 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 Pt states he does not feel he will need this as his leg is getting better. Pt states no further concerns/needs. CM to follow. Advised pt to ask CM if any further question/concerns/needs arise, voices understanding. Pt Goal: Home Plan: Home, will follow for tx needs.
[2021-04-13 12:16] LABS: Bedside Glucose 204 mg/dL (70-110)
--- NOTE | 2021-04-13 14:02 | PCM.PN.HOSP ---
Subjective Subjective Patient reports that he has had very minimal drainage out of his right knee. He states it external grinder tender but feels may be a little bit better. It appears that the erythema has retracted inside the outlined marking from yesterday. His abdominal lesions are stable and seem to be improving slowly as well. Objective Data Objective Data Vital Signs: Vital Signs Temp Pulse Resp BP Pulse Ox 98.1 F 93 18 124/81 H 95 04/13/21 08:30 04/13/21 08:30 04/13/21 08:30 04/13/21 08:30 04/13/21 08:30 Oxygen Delivery Method Room Air Weight: 92.079 kg Body Mass Index (BMI) 28.3 Intake & Output: Intake and Output for Last 24 Hours 04/11/21 04/12/21 04/13/21 23:59 23:59 23:59 Intake Total 275 / 575 2225.00 / 2225.00 Output Total 300 / 1050 1450 / 1450 Balance -25 / -475 775.00 / 775.00 Lab / Micro Data Result Diagrams: 04/13/21 06:00 04/13/21 06:00 Labs: Laboratory Results - last 24 hr 04/12/21 16:17: POC Glucose 263 H 04/12/21 16:27: Lactic Acid 2.0 04/12/21 20:57: POC Glucose 185 H 04/13/21 06:00: WBC 11.9 H, RBC 5.67, Hgb 15.8, Hct 49.6, MCV 87.5, MCH 27.9, MCHC 31.9 L, RDW Std Deviation 48.0 H, RDW Coeff of Ara 15.0 H, Plt Count 269, MPV 9.5, Immature Gran % (Auto) 1.800 H, Neut % (Auto) 73.4 H, Lymph % (Auto) 15.2 L, [place] % (Auto) 7.7, Eos % (Auto) 1.5, Baso % (Auto) 0.4, Absolute Neuts (auto) 8.7 H, Absolute Lymphs (auto) 1.80, Nucleated RBC % 0 04/13/21 06:00: Sodium 134 L, Potassium 4.4, Chloride 105, Carbon Dioxide 24.0, Anion Gap 5, BUN 17, Creatinine 1.00, Estim Creat Clear Calc 88.90, Est GFR (MDRD) Af Amer 100, Est GFR (MDRD) Non-Af 83, BUN/Creatinine Ratio 17.1, Glucose 160 H, Calcium 9.4, Phosphorus 2.2 L, Magnesium 2.6 04/13/21 06:00: Hemoglobin A1c 11.1 H 04/13/21 06:52: POC Glucose 195 H 04/13/21 12:09: POC Glucose 204 H Physical Exam Const alert, oriented x3 and no apparent distress Constitutional Narrative: Overweight white male lying in bed watching television, appears comfortable, nontoxic appearing General Appearance: cooperative Exam Limitations: no limitations Nutritional Appearance: overweight HEENT normocephalic, head/scalp atraumatic and moist oral mucous membranes Head and Scalp: normocephalic Resp normal respiratory effort, no retractions, no use of accessory muscles and clear to auscultation bilaterally Auscultation: Negative for crackles, rales, rhonchi or wheezes Cardio regular rate, regular rhythm, S1 normal heart sound, S2 normal heart sound, no murmurs, no rub, no gallops, no clicks and no JVD GI normal to inspection, nondistended, normoactive bowel sounds, soft to palpation, non-tender and non-distended GI Narrative: Evidence of old ostomy and PEG placement, multiple wounds which are scabbed over, area of induration at left PEG with no significant erythema, slight amount of drainage from old PEG site Extremity no clubbing, cyanosis or edema Extremity Narrative: Left AKA, right knee joint without effusion but erythema over the anterior portion of the joint-erythematous area seems to be retracting and side of outlined marking from yesterday, very small amounts of drainage from a small fluctuant area that seems to be superficial, skin is dry, mild pain with joint movement Peripheral Pulses: Yes pulses 2+ throughout Skin No no rashes or lesions noted, No no wounds, skin turgor normal, no jaundice, no petechiae and no mottling Skin Narrative: Skin as noted above Neuro oriented x3, moves all extremities and no focal motor deficits Sensorium / Orientation: awake and alert Speech: speech normal Assessment & Plan Assessment/Plan (1) Cellulitis of right leg: (2) Hyperglycemia: (3) Hypophosphatemia: PLAN: MRSA cellulitis/abscess of right knee and abdomen -Cultures obtained on 04/10/2021 -CT scan performed to rule out joint involvement--> no joint effusion or abscess noted -Patient was written for Doxy and Bactrim but prescriptions were never filled at the instruction of his PCP -Was given IV Levaquin and clindamycin for what appears to be 2 days prior to presentation -Continue vancomycin -Consult infectious disease is pending -White count is improving -Patient has a history of recurrent MRSA infections therefore we will place him on MRSA eradication protocol with nasal Bactroban DM-2 -Hemoglobin A1c on admission was 11.1 -We will likely discontinue home oral medications at discharge (dapagliflozin, glimepiride, pioglitazone) and utilize insulin given poorly controlled diabetes and chronic infections -Increase Lantus to 20 units at bedtime -SSI with Accu-Cheks -Patient would certainly benefit from improved blood sugar control given his recurrent infections -We will refer to Dr. 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
[2021-04-13 16:20] VITALS: BP 108/72; PULSE 109; RESP 18; TEMP 36.4; O2SAT 96
[2021-04-13 16:46] LABS: Bedside Glucose 233 mg/dL (70-110)
[2021-04-13 19:32] LABS: Phosphorus 3.4 mg/dL (2.5-4.9)
[2021-04-13] MEDS: Atorvastatin Calcium 80 MG Tablet PO (21:17)
[2021-04-13] MEDS: Mupirocin Ointment 22gm Tube 1 APPLIC NASAL (21:17)
[2021-04-13] MEDS: oxyCODONE 5 MG Tablet PO (21:19)
[2021-04-13] MEDS: Acetaminophen 325 MG Tablet 650 MG PO (21:20)
[2021-04-13 22:25] LABS: Bedside Glucose 235 mg/dL (70-110)
[2021-04-14 00:25] LABS: Vancomycin, Trough Level 10.2 ug/mL (5.0-15.0)
--- NOTE | 2021-04-14 01:19 | PCM.RX.CS ---
Consult Pharmacy has been consulted to manage selected antiobiotic: Vancomycin Type of Consult: New start Prior Doses of Antibiotics Received/Current Regimen: Medications Vancomycin HCl 1,250 mg/ (Sodium Chloride) 275 mls @ 167 mls/hr IV Q12H ARNOLDO Last Admin: 04/14/21 00:15 Dose: 167 mls/hr Documented by: Labs: Sodium 134 mmol/L (136-145) L 04/13/21 06:00 Potassium 4.4 mmol/L (3.5-5.1) 04/13/21 06:00 Chloride 105 mmol/L (98-107) 04/13/21 06:00 Carbon Dioxide 24.0 mmol/L (21.0-32.0) 04/13/21 06:00 Anion Gap 5 (5-15) 04/13/21 06:00 BUN 17 mg/dL (7-18) 04/13/21 06:00 Creatinine 1.00 mg/dL (0.70-1.30) 04/13/21 06:00 Est GFR (MDRD) Af Amer 100 mL/min (>60) 04/13/21 06:00 Est GFR (MDRD) Non-Af 83 mL/min (>60) 04/13/21 06:00 BUN/Creatinine Ratio 17.1 RATIO (10-20) 04/13/21 06:00 Glucose 160 mg/dL (74-106) H 04/13/21 06:00 Vancomycin Trough 10.2 ug/mL (5.0-15.0) 04/13/21 23:51 Weight used for dosin kg Goal Trough: 15-20 mcg/mL Pharmacy Plan for Drug Dosing: Trough below goal, increase to 1750mg IV q12h and recheck prior to 4th dose. Pharmacy Service will continue to monitor and adjust dosing as required. Follow-Up Labs: Trough Vancomycin - 04/15 @ 0930
[2021-04-14 03:45] VITALS: BP 105/84; PULSE 111; RESP 16; TEMP 37.2; O2SAT 96
[2021-04-14] MEDS: Insulin Lispro 100 UNIT/ML INSULN.PEN SC ×2 (06:32→12:19)
[2021-04-14 06:46] LABS: Bedside Glucose 165 mg/dL (70-110)
[2021-04-14 08:14] VITALS: BP 115/72; PULSE 91; RESP 18; TEMP 36.7; O2SAT 95
[2021-04-14] MEDS: Gabapentin 300 MG Capsule PO ×2 (08:28→12:18)
[2021-04-14 08:43] LABS: Anion Gap 3 (5-15); BUN 14 mg/dL (7-18); BUN/Creat Ratio 17.5 RATIO (10-20); Calcium,Total 9.6 mg/dL (8.5-10.1); Chloride 109 mmol/L (98-107); EST Glomerular Filtration Rate 107 mL/min (>60); Est Glom Filt Rate - Afr Amer 129 mL/min (>60); Estimated Creatinine Clearance 111.12 ml/min; Glucose 184 mg/dL (74-106); Potassium 4.2 mmol/L (3.5-5.1); Sodium Level 136 mmol/L (136-145)
[2021-04-14] MEDS: 0.9% Saline Lock 10 ML Syringe IV (10:16)
[2021-04-14] MEDS: Mupirocin Ointment 22gm Tube 1 APPLIC NASAL (10:17)
[2021-04-14] MEDS: CHLORHEXIDINE GLUC 2% CLOTH 1 EACH TOWELETTE TOPICAL (10:18)
[2021-04-14] MEDS: Lisinopril 5 MG Tablet PO (10:19)
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
[2021-04-14 12:16] LABS: Bedside Glucose 268 mg/dL (70-110)
[2021-04-14] MEDS: Insulin Lispro 100 UNIT/ML INSULN.PEN 6 UNIT SC (12:19)
--- NOTE | 2021-04-14 12:58 | CASEMGMT ---
Addendum entered by Brooke Alberto 04/14/21 15:00: TC to [facility] pharmacy and novalog is covered at $4, levemir is on back order for the pen. Notified Dr. Barrera, pt cannot do the vials. TC to [facility] [place], they are closed. [facility] and neither have the levemir. to change to NPH. TC to pt to make aware. He has not picked up his scripts yet and will do so in the morning. Original Note: SARAH MARTINEZ called [facility] pharmacy. Neither insulin is covered for pt. aware and will reorder. SARAH MARTINEZ in to pt room. He is aware that [facility] is set up but that he may need to see first before they can start. He is aware that this SARAH MARTINEZ will call 's office on Friday to follow up and call him to let him know. Also called Gracy at [facility] and left message that pt will dc and will touch base with Dr. Morfin's office Friday as he is the one who sent pt to the hospital.
[2021-04-14 13:40] VITALS: BP 123/81; PULSE 102; RESP 18; TEMP 36.6; O2SAT 95
--- NOTE | 2021-04-16 08:46 | CASEMGMT ---
TC to 's office, spoke with Liz. Almaguer for [facility] to start, even today. Pt will be contacted to make an appt from their office and then will sign [facility] orders. TC to Gracy at [facility] to make aware.
--- NOTE | 2021-04-16 15:55 | CASEMGMT ---
Received notification from Gracy at [facility] that pt glucometer was not picked up because the script was not signed. TC to Dr. Morfin's office, left message for Rachael requesting script sent to [facility]. TC to pt, he states he had also called about the glucometer. Pt has an appt on Friday for follow up. He is aware he needs to be at the appt or may not sign for the [facility]. He verbalizes understanding. He states he did get his insulin but has not given it to himself yet. He states he will wait for the [facility] nurse tomorrow. Pt denies further questions or concerns.
== END 2021-04-14 13:35 | disposition home health service (06) | DRG 603 ==
LOC: ED 13:22 → MS3 13:59
PROVIDERS: Admitting Provider Internal Medicine; Emergency Provider Emergency Medicine; PCP Family Medicine Geriatric Medicine; Visit Provider Internal Medicine
DX: L03.115 Cellulitis of right lower limb (principal); L02.211 Cutaneous abscess of abdominal wall; E87.2 Acidosis; E87.1 Hypo-osmolality and hyponatremia; E83.39 Other disorders of phosphorus metabolism; B95.62 Methicillin resistant Staphylococcus aureus infection as the cause of diseases classified elsewhere; L02.415 Cutaneous abscess of right lower limb; I12.9 Hypertensive chronic kidney disease with stage 1 through stage 4 chronic kidney disease, or unspecified chronic kidney disease; E11.22 Type 2 diabetes mellitus with diabetic chronic kidney disease; N18.1 Chronic kidney disease, stage 1; E11.40 Type 2 diabetes mellitus with diabetic neuropathy, unspecified; E11.65 Type 2 diabetes mellitus with hyperglycemia; E78.5 Hyperlipidemia, unspecified; F17.210 Nicotine dependence, cigarettes, uncomplicated; E66.3 Overweight; Z68.28 Body mass index [BMI] 28.0-28.9, adult; Z79.4 Long term (current) use of insulin; Z79.1 Long term (current) use of non-steroidal anti-inflammatories (NSAID); Z79.899 Other long term (current) drug therapy; Z86.14 Personal history of Methicillin resistant Staphylococcus aureus infection; Z89.612 Acquired absence of left leg above knee
CPT/HCPCS: 36415; 73701; 80048; 80202; 82962; 83036; 83605; 83735; 84100; 85025; 86140; 87040; 87070; 87077; 87186; 87205; 87640; 99251; 99285; 99406; J7030; J7040; J7050; Q9967; A4216; G0463

== ENCOUNTER → 2021-05-22 15:42 | Outpatient (CLI) | payer MEDICARE, SELFPAY ==
[2021-05-22 16:31] LABS: Absolute Lymphocyte Count 3.18 X10^3/uL (0.83-4.51); Absolute Neutrophil Count 8.8 X10^3/uL (2.0-7.7); Basophil# 0.05 X10^3/uL; Basophil% 0.4 % (0-1); Eosinophil# 0.14 X10^3/uL; Eosinophils% 1.1 % (0-5); Hematocrit 52.7 % (40-54); Hemoglobin 17.3 g/dL (13.0-16.5); Lymphocyte # 3.18 X10^3/ul (0.83-4.51); Mean Corp Hgb Conc 32.8 g/dL (32-36); Mean Corpuscular Hgb 28.3 pg (27.0-32.0); Mean Corpuscular Volume 86.1 fL (80-94); Mean Platelet Vol. 11.3 fl (6.2-12.0); Monocyte% 7.6 % (0-10); NRBC Flagged by Analyzer 0 % (0-5); Neutrophil # 8.75 X10^3/uL (2.7-7.7); Neutrophil % 66.1 % (47-70); Platelet Count 231 K/mm3 (150-450); RBC Distribution Width CV 15.4 % (11.6-14.6); RBC Distribution Width SD 48.2 fl (35.1-43.9); Red Blood Count 6.12 M/mm3 (4.6-6.2); White Blood Count 13.2 K/mm3 (4.4-11.0)
[2021-05-22 16:58] LABS: ALB/GLOB Ratio 0.8 RATIO (0.9-2.4); AST(SGOT) 19 U/L (15-37); Alanine Aminotransfer ALT/SGPT 42 U/L (16-61); Albumin, Serum 3.6 g/dL (3.2-5.0); Alkaline Phosphatase 70 U/L (45-117); Anion Gap 3 (5-15); BUN 19 mg/dL (7-18); BUN/Creat Ratio 12.5 RATIO (10-20); Calcium,Total 10.5 mg/dL (8.5-10.1); Chloride 104 mmol/L (98-107); Cholesterol 144 mg/dL (200); Creatinine, Serum 1.52 mg/dL (0.70-1.30); EST Glomerular Filtration Rate 51 mL/min (>60); Est Glom Filt Rate - Afr Amer 61 mL/min (>60); Globulin 4.3 g/dL (2.2-4.2); Glucose 213 mg/dL (74-106); High Density Lipoprotein 37 mg/dL; Potassium 4.6 mmol/L (3.5-5.1); Protein, Total 7.9 g/dL (6.4-8.2); Sodium Level 134 mmol/L (136-145); Thyroid Stim Hormone (TSH) 0.97 uIU/mL (0.358-3.74); Triglycerides 233 mg/dL; Very Low Density Lipoprotein 47 mg/dL (5-40)
== END ==
PROVIDERS: PCP Family Medicine Geriatric Medicine; Visit Provider Family Medicine Geriatric Medicine
DX: E78.5 Hyperlipidemia, unspecified (principal); R53.83 Other fatigue
CPT/HCPCS: 36415; 80053; 80061; 84443; 85025

== ENCOUNTER 2021-05-23 15:06 | Outpatient (RCR) | payer MEDICARE, SELFPAY | END 2021-06-01 23:59 | LOC: DC 15:06 | PROVIDERS: PCP Family Medicine Geriatric Medicine; Visit Provider Family Medicine Geriatric Medicine | DX: E11.22 Type 2 diabetes mellitus with diabetic chronic kidney disease (principal); N18.9 Chronic kidney disease, unspecified | CPT/HCPCS: 97802 ==

== ENCOUNTER 2021-06-06 13:02 | Outpatient (RCR) | payer MEDICARE, MEDICAID, SELFPAY | END 2021-07-02 23:59 | LOC: DC 13:02 | PROVIDERS: PCP Family Medicine Geriatric Medicine; Visit Provider Family Medicine Geriatric Medicine | DX: E11.22 Type 2 diabetes mellitus with diabetic chronic kidney disease (principal) | CPT/HCPCS: G0108 ==

== ENCOUNTER 2021-07-18 10:21 | Outpatient (RCR) | payer MEDICARE, MEDICAID, SELFPAY | END 2021-07-30 23:59 | LOC: DC 10:21 | PROVIDERS: PCP Family Medicine Geriatric Medicine; Referring Provider Family Medicine Geriatric Medicine; Visit Provider Family Medicine Geriatric Medicine | DX: E11.22 Type 2 diabetes mellitus with diabetic chronic kidney disease (principal) | CPT/HCPCS: G0108 ==

== ENCOUNTER 2021-08-07 11:31 | Outpatient (CLI) | payer MEDICARE, MEDICAID, SELFPAY ==
[2021-08-07 12:30] LABS: Absolute Lymphocyte Count 2.53 X10^3/uL (0.83-4.51); Absolute Neutrophil Count 6.3 X10^3/uL (2.0-7.7); Basophil# 0.03 X10^3/uL; Basophil% 0.3 % (0-1); Eosinophil# 0.11 X10^3/uL; Eosinophils% 1.1 % (0-5); Hematocrit 53.6 % (40-54); Lymphocyte # 2.53 X10^3/ul (0.83-4.51); Lymphocyte % 25.3 % (19-41); Mean Corp Hgb Conc 33.6 g/dL (32-36); Mean Corpuscular Hgb 28.9 pg (27.0-32.0); Mean Corpuscular Volume 86.2 fL (80-94); Mean Platelet Vol. 11.3 fl (6.2-12.0); Monocyte# 1.01 X10^3/uL; Monocyte% 10.1 % (0-10); NRBC Flagged by Analyzer 0 % (0-5); Neutrophil # 6.26 X10^3/uL (2.7-7.7); Neutrophil % 62.6 % (47-70); Platelet Count 199 K/mm3 (150-450); RBC Distribution Width CV 13.8 % (11.6-14.6); RBC Distribution Width SD 42.4 fl (35.1-43.9); Red Blood Count 6.22 M/mm3 (4.6-6.2)
[2021-08-07 12:39] LABS: Differential Indicated SCAN CRITERIA MET
[2021-08-07 12:41] LABS: Vitamin D,25 Hydroxy 17.8 ng/mL
[2021-08-07 13:04] LABS: ALB/GLOB Ratio 0.9 RATIO (0.9-2.4); AST(SGOT) 22 U/L (15-37); Alanine Aminotransfer ALT/SGPT 29 U/L (16-61); Albumin, Serum 3.7 g/dL (3.2-5.0); Alkaline Phosphatase 73 U/L (45-117); Anion Gap 8 (5-15); BUN 18 mg/dL (7-18); BUN/Creat Ratio 11.6 RATIO (10-20); Calcium,Total 9.7 mg/dL (8.5-10.1); Chloride 99 mmol/L (98-107); Creatinine, Serum 1.55 mg/dL (0.70-1.30); EST Glomerular Filtration Rate 50 mL/min (>60); Est Glom Filt Rate - Afr Amer 60 mL/min (>60); Globulin 4.1 g/dL (2.2-4.2); Glucose 319 mg/dL (74-106); PSA,Total - Annual Screen 0.79 ng/mL (0.00-4.00); Potassium 4.3 mmol/L (3.5-5.1); Protein, Total 7.8 g/dL (6.4-8.2); Sodium Level 132 mmol/L (136-145); Thyroid Stim Hormone (TSH) 2.96 uIU/mL (0.358-3.74)
[2021-08-08 14:15] LABS: Pathologist Review Reviewed
== END 2021-08-07 23:59 | disposition home or self-care (01) ==
LOC: POLAB3 11:32
PROVIDERS: PCP Family Medicine Geriatric Medicine; Visit Provider Family Medicine Geriatric Medicine
DX: Z12.5 Encounter for screening for malignant neoplasm of prostate (principal); E11.9 Type 2 diabetes mellitus without complications; I10 Essential (primary) hypertension; E55.9 Vitamin D deficiency, unspecified
CPT/HCPCS: 36415; 80053; 82306; 84153; 84443; 85025; G0103

== ENCOUNTER → 2021-10-12 | Outpatient (CLI) | payer MEDICARE, MEDICAID, SELFPAY ==
--- NOTE | 2021-10-12 13:08 | US_ITS ---
EXAM: US RETROPERITONEAL LIMITED, RENAL CLINICAL INDICATION: CKD 3B TECHNIQUE: Limited grayscale and color Doppler sonographic evaluation of the retroperitoneum was performed. This report was created using [employer] report generation technology. COMPARISON: None. FINDINGS: RIGHT KIDNEY: Right kidney measures 11 cm in length. No hydronephrosis. No shadowing calculus. No perinephric collection is demonstrated. LEFT KIDNEY: Left kidney measures 12.3 cm in length. 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 No hydronephrosis. No shadowing calculus. No perinephric collection is demonstrated. BLADDER: The urinary bladder is normal. US/Kidney and Bladder IMPRESSION: Normal size kidneys without hydronephrosis. Electronically Signed: Radu Jenkins MD at 17:14 EDT ,
== END | disposition home or self-care (01) ==
LOC: US 13:06
PROVIDERS: PCP Family Medicine Geriatric Medicine; Referring Provider Internal Medicine Nephrology; Visit Provider Internal Medicine Nephrology
DX: N18.32 Chronic kidney disease, stage 3b (principal)
CPT/HCPCS: 76770

== ENCOUNTER → 2021-11-05 | Outpatient (CLI) | payer MEDICARE, MEDICAID, SELFPAY ==
[2021-11-05 12:35] LABS: Absolute Lymphocyte Count 2.41 X10^3/uL (0.83-4.51); Basophil# 0.03 X10^3/uL; Basophil% 0.3 % (0-1); Eosinophil# 0.21 X10^3/uL; Eosinophils% 2.4 % (0-5); Hematocrit 48.7 % (40-54); Hemoglobin 16.2 g/dL (13.0-16.5); Lymphocyte # 2.41 X10^3/ul (0.83-4.51); Lymphocyte % 28.1 % (19-41); Mean Corp Hgb Conc 33.3 g/dL (32-36); Mean Corpuscular Hgb 28.5 pg (27.0-32.0); Mean Corpuscular Volume 85.7 fL (80-94); Monocyte# 0.84 X10^3/uL; Monocyte% 9.8 % (0-10); NRBC Flagged by Analyzer 0 % (0-5); Neutrophil # 5.04 X10^3/uL (2.7-7.7); Neutrophil % 58.7 % (47-70); Platelet Count 181 K/mm3 (150-450); RBC Distribution Width CV 13.5 % (11.6-14.6); RBC Distribution Width SD 41.6 fl (35.1-43.9); Red Blood Count 5.68 M/mm3 (4.6-6.2); White Blood Count 8.6 K/mm3 (4.4-11.0)
[2021-11-05 13:16] LABS: Protein, Urine (Random) 6.5 mg/dL (<11.9); Protein:Creat Ratio 269 mg/g CRE (0-200)
[2021-11-05 13:58] LABS: ALB/GLOB Ratio 1.1 RATIO (0.9-2.4); AST(SGOT) 12 U/L (15-37); Alanine Aminotransfer ALT/SGPT 28 U/L (16-61); Albumin, Serum 3.8 g/dL (3.2-5.0); Alkaline Phosphatase 75 U/L (45-117); Anion Gap 10 (5-15); BUN 13 mg/dL (7-18); Calcium,Total 9.8 mg/dL (8.5-10.1); Chloride 97 mmol/L (98-107); Creatinine, Serum 1.44 mg/dL (0.70-1.30); EST Glomerular Filtration Rate 54 mL/min (>60); Est Glom Filt Rate - Afr Amer 65 mL/min (>60); Globulin 3.6 g/dL (2.2-4.2); Glucose 535 mg/dL (74-106); Potassium 4.3 mmol/L (3.5-5.1); Protein, Total 7.4 g/dL (6.4-8.2); Sodium Level 129 mmol/L (136-145); Thyroid Stim Hormone (TSH) 1.25 uIU/mL (0.358-3.74)
== END | disposition home or self-care (01) ==
LOC: LAB 11:48
PROVIDERS: PCP Family Medicine Geriatric Medicine; Referring Provider Internal Medicine Nephrology; Visit Provider Internal Medicine Nephrology
DX: I12.9 Hypertensive chronic kidney disease with stage 1 through stage 4 chronic kidney disease, or unspecified chronic kidney disease (principal); E11.22 Type 2 diabetes mellitus with diabetic chronic kidney disease; N18.9 Chronic kidney disease, unspecified; F52.8 Other sexual dysfunction not due to a substance or known physiological condition
CPT/HCPCS: 36415; 80053; 82570; 84156; 84403; 84443; 85025

== ENCOUNTER → 2022-04-08 | Outpatient (CLI) | payer MEDICARE, MEDICAID, SELFPAY ==
[2022-04-08 12:29] LABS: Absolute Lymphocyte Count 2.46 X10^3/uL (0.83-4.51); Absolute Neutrophil Count 8.7 X10^3/uL (2.0-7.7); Basophil# 0.04 X10^3/uL; Basophil% 0.3 % (0-1); Eosinophil# 0.12 X10^3/uL; Hematocrit 54.1 % (40-54); Hemoglobin 17.7 g/dL (13.0-16.5); Lymphocyte # 2.46 X10^3/ul (0.83-4.51); Lymphocyte % 20.1 % (19-41); Mean Corp Hgb Conc 32.7 g/dL (32-36); Mean Corpuscular Hgb 28.4 pg (27.0-32.0); Mean Corpuscular Volume 86.8 fL (80-94); Mean Platelet Vol. 12.4 fl (6.2-12.0); Monocyte% 7.3 % (0-10); NRBC Flagged by Analyzer 0 % (0-5); Neutrophil # 8.68 X10^3/uL (2.7-7.7); Neutrophil % 70.8 % (47-70); Platelet Count 225 K/mm3 (150-450); RBC Distribution Width CV 13.4 % (11.6-14.6); RBC Distribution Width SD 42.3 fl (35.1-43.9); Red Blood Count 6.23 M/mm3 (4.6-6.2); White Blood Count 12.3 K/mm3 (4.4-11.0)
[2022-04-08 12:59] LABS: ALB/GLOB Ratio 0.9 RATIO (0.9-2.4); AST(SGOT) 30 U/L (15-37); Alanine Aminotransfer ALT/SGPT 50 U/L (16-61); Albumin, Serum 3.7 g/dL (3.2-5.0); Alkaline Phosphatase 82 U/L (45-117); Anion Gap 12 (5-15); BUN 18 mg/dL (7-18); Calcium,Total 9.4 mg/dL (8.5-10.1); Chloride 97 mmol/L (98-107); EST Glomerular Filtration Rate 51 mL/min (>60); Est Glom Filt Rate - Afr Amer 62 mL/min (>60); Globulin 4.3 g/dL (2.2-4.2); Glucose 628 mg/dL (74-106); Potassium 4.3 mmol/L (3.5-5.1); Sodium Level 127 mmol/L (136-145)
== END | disposition home or self-care (01) ==
LOC: POLAB3 09:15
PROVIDERS: PCP Family Medicine Geriatric Medicine; Visit Provider Family Medicine Geriatric Medicine
DX: I10 Essential (primary) hypertension (principal)
CPT/HCPCS: 36415; 80053; 84443; 85025

== ENCOUNTER → 2022-04-18 | Outpatient (CLI) | payer MEDICARE, MEDICAID, SELFPAY ==
[2022-04-18 13:08] LABS: Protein, Urine (Random) 6.4 mg/dL (<11.9); Protein:Creat Ratio 413 mg/g CRE (0-200)
== END | disposition home or self-care (01) ==
PROVIDERS: PCP Family Medicine Geriatric Medicine; Visit Provider Internal Medicine Nephrology
DX: E11.22 Type 2 diabetes mellitus with diabetic chronic kidney disease (principal)
CPT/HCPCS: 82570; 84156

== ENCOUNTER → 2022-08-01 | Outpatient (CLI) | payer MEDICARE, MEDICAID, SELFPAY ==
[2022-08-01 12:30] LABS: Absolute Lymphocyte Count 1.79 X10^3/uL (0.83-4.51); Absolute Neutrophil Count 5.9 X10^3/uL (2.0-7.7); Basophil# 0.03 X10^3/uL; Basophil% 0.4 % (0-1); Eosinophil# 0.16 X10^3/uL; Eosinophils% 1.9 % (0-5); Hematocrit 54.1 % (40-54); Hemoglobin 17.8 g/dL (13.0-16.5); Lymphocyte # 1.79 X10^3/ul (0.83-4.51); Lymphocyte % 20.9 % (19-41); Mean Corp Hgb Conc 32.9 g/dL (32-36); Mean Corpuscular Hgb 28.2 pg (27.0-32.0); Mean Corpuscular Volume 85.6 fL (80-94); Mean Platelet Vol. 11.6 fl (6.2-12.0); Monocyte# 0.57 X10^3/uL; Monocyte% 6.7 % (0-10); NRBC Flagged by Analyzer 0 % (0-5); Neutrophil # 5.93 X10^3/uL (2.7-7.7); Neutrophil % 69.3 % (47-70); Platelet Count 210 K/mm3 (150-450); RBC Distribution Width CV 13.1 % (11.6-14.6); RBC Distribution Width SD 40.8 fl (35.1-43.9); Red Blood Count 6.32 M/mm3 (4.6-6.2); White Blood Count 8.6 K/mm3 (4.4-11.0)
[2022-08-01 13:42] LABS: ALB/GLOB Ratio 1.1 RATIO (0.9-2.4); AST(SGOT) 11 U/L (15-37); Alanine Aminotransfer ALT/SGPT 23 U/L (16-61); Albumin, Serum 3.7 g/dL (3.2-5.0); Alkaline Phosphatase 74 U/L (45-117); Anion Gap 13 (5-15); BUN 24 mg/dL (7-18); BUN/Creat Ratio 16.8 RATIO (10-20); Calcium,Total 9.7 mg/dL (8.5-10.1); Chloride 93 mmol/L (98-107); Creatinine, Serum 1.43 mg/dL (0.70-1.30); EST Glomerular Filtration Rate 54 mL/min (>60); Est Glom Filt Rate - Afr Amer 66 mL/min (>60); Globulin 3.5 g/dL (2.2-4.2); Glucose 797 mg/dL (74-106); Potassium 4.5 mmol/L (3.5-5.1); Protein, Total 7.2 g/dL (6.4-8.2); Sodium Level 127 mmol/L (136-145); Thyroid Stim Hormone (TSH) 0.63 uIU/mL (0.358-3.74)
== END | disposition home or self-care (01) ==
LOC: POLAB3 10:22
PROVIDERS: PCP Family Medicine Geriatric Medicine; Visit Provider Family Medicine Geriatric Medicine
DX: E11.9 Type 2 diabetes mellitus without complications (principal); I10 Essential (primary) hypertension; F52.8 Other sexual dysfunction not due to a substance or known physiological condition
CPT/HCPCS: 36415; 80053; 84403; 84443; 85025

== ENCOUNTER → 2023-02-07 | Outpatient (CLI) | payer MEDICARE, MEDICAID, SELFPAY ==
--- NOTE | 2023-02-07 | LES_PTH ---
PATIENT: CHUCK GARZA LOC: [facility] U#:[id number] AGE/SX: 57/M ROOM: RE02/07/[address]: Dr. Miquel Morfin MD : 1965 BED: DIS: 02/07/2023 SPEC #: [id number] RECD: 02/07/23 13:14 STATUS: LOU BENIGNO #: [id number] NIGHAT: 02/07/23 00:[address]: Miquel Morfin Chi DEPT: SURGICAL PATHOLOGY RECD BY: Josue Phillips Tissues: A - Skin of back, NOS B - Skin of back, NOS Procedures: Surgery Specimen Level IV HEADER OPERATION: Skin biopsy PRE-OP DIAGNOSIS: Lesions TISSUE SUBMITTED: A - Left back lower shoulder area, B - Right back mid shoulder area MICROSCOPIC DIAGNOSIS A. Skin lesion, left lower shoulder/back area, shave biopsy: Actinic keratosis, mildly inflamed. B. Skin lesion, right mid back/shoulder area, shave biopsy: Actinic keratosis, mildly inflamed. AM:gladis 02/10/2023 COMMENT Case has been reviewed in consultation with Dr. Balderas who concurs with the above diagnosis. IDC:[email or web address] MICROSCOPIC DESCRIPTION Slides are reviewed. GROSS DESCRIPTION A - Received in fixative is one container labeled with the patient's name and designated left lower back. The specimen consists of a shave biopsy of lo-brown skin measuring 0.5 x 0.5 x 0.1 cm. The specimen is inked, bisected and submitted entirely in one cassette. B - Received in fixative is one container labeled with the patient's name and designated mid shoulder area. The specimen consists of a shave biopsy of lo-brown skin measuring 0.8 x 0.5 x 0.1 cm. The specimen is inked, serially sectioned and submitted entirely in one cassette. / [facility]:gladis 02/07/2023 TC:5 CPT: 39228 x2
[2023-02-07 11:10] LABS: Absolute Lymphocyte Count 2.69 X10^3/uL (0.83-4.51); Absolute Neutrophil Count 5.2 X10^3/uL (2.0-7.7); Basophil# 0.04 X10^3/uL; Basophil% 0.5 % (0-1); Eosinophil# 0.16 X10^3/uL; Eosinophils% 1.8 % (0-5); Hematocrit 51.3 % (40-54); Hemoglobin 17.1 g/dL (13.0-16.5); Lymphocyte # 2.69 X10^3/ul (0.83-4.51); Lymphocyte % 30.6 % (19-41); Mean Corp Hgb Conc 33.3 g/dL (32-36); Mean Corpuscular Hgb 28.2 pg (27.0-32.0); Mean Corpuscular Volume 84.5 fL (80-94); Mean Platelet Vol. 11.4 fl (6.2-12.0); Monocyte# 0.69 X10^3/uL; Monocyte% 7.8 % (0-10); NRBC Flagged by Analyzer 0 % (0-5); Neutrophil # 5.15 X10^3/uL (2.7-7.7); Neutrophil % 58.5 % (47-70); Platelet Count 204 K/mm3 (150-450); RBC Distribution Width CV 13.2 % (11.6-14.6); RBC Distribution Width SD 40.4 fl (35.1-43.9); Red Blood Count 6.07 M/mm3 (4.6-6.2); White Blood Count 8.8 K/mm3 (4.4-11.0)
[2023-02-07 11:32] LABS: Hemoglobin A1c 12.1 % (3.8-5.6)
[2023-02-07 11:35] LABS: AST(SGOT) 16 U/L (15-37); Alanine Aminotransfer ALT/SGPT 29 U/L (16-61); Albumin, Serum 3.8 g/dL (3.2-5.0); Alkaline Phosphatase 74 U/L (45-117); Anion Gap 8 (5-15); BUN 13 mg/dL (7-18); BUN/Creat Ratio 10.6 RATIO (10-20); Calcium,Total 9.9 mg/dL (8.5-10.1); Chloride 101 mmol/L (98-107); Cholesterol 220 mg/dL (200); Creatinine, Serum 1.23 mg/dL (0.70-1.30); EST Glomerular Filtration Rate 64 mL/min (>60); Est Glom Filt Rate - Afr Amer 78 mL/min (>60); Globulin 3.8 g/dL (2.2-4.2); Glucose 425 mg/dL (74-106); High Density Lipoprotein 36 mg/dL; PSA,Total - Annual Screen 1.16 ng/mL (0.00-4.00); Potassium 3.9 mmol/L (3.5-5.1); Protein, Total 7.6 g/dL (6.4-8.2); Sodium Level 131 mmol/L (136-145); Thyroid Stim Hormone (TSH) 1.87 uIU/mL (0.358-3.74); Triglycerides 458 mg/dL
== END | disposition home or self-care (01) ==
PROVIDERS: PCP Family Medicine Geriatric Medicine; Visit Provider Family Medicine Geriatric Medicine
DX: I10 Essential (primary) hypertension (principal); E11.65 Type 2 diabetes mellitus with hyperglycemia; Z12.5 Encounter for screening for malignant neoplasm of prostate; L57.0 Actinic keratosis
CPT/HCPCS: 36415; 80053; 80061; 83036; 84153; 84443; 85025; 88305; G0103

== ENCOUNTER → 2023-08-05 | Outpatient (CLI) | payer MEDICARE, SELFPAY ==
[2023-08-05 18:10] LABS: AST(SGOT) 15 U/L (15-37); Alanine Aminotransfer ALT/SGPT 25 U/L (16-61); Albumin, Serum 3.9 g/dL (3.2-5.0); Alkaline Phosphatase 68 U/L (45-117); Anion Gap 6 (5-15); BUN 10 mg/dL (7-18); BUN/Creat Ratio 8.1 RATIO (10-20); Chloride 100 mmol/L (98-107); Creatinine, Serum 1.23 mg/dL (0.70-1.30); EST Glomerular Filtration Rate 64 mL/min (>60); Est Glom Filt Rate - Afr Amer 78 mL/min (>60); Globulin 3.8 g/dL (2.2-4.2); Glucose 417 mg/dL (74-106); Potassium 4.2 mmol/L (3.5-5.1); Protein, Total 7.7 g/dL (6.4-8.2); Sodium Level 134 mmol/L (136-145)
== END | disposition home or self-care (01) ==
LOC: LAB 17:01
PROVIDERS: PCP Family Medicine Geriatric Medicine; Referring Provider Internal Medicine Nephrology; Visit Provider Internal Medicine Nephrology
DX: N18.32 Chronic kidney disease, stage 3b (principal)
CPT/HCPCS: 36415; 80053

== ENCOUNTER → 2023-08-06 | Outpatient (CLI) | payer MEDICARE, SELFPAY ==
[2023-08-06 11:26] LABS: Absolute Lymphocyte Count 2.23 X10^3/uL (0.83-4.51); Absolute Neutrophil Count 3.8 X10^3/uL (2.0-7.7); Basophil# 0.04 X10^3/uL; Basophil% 0.6 % (0-1); Eosinophil# 0.16 X10^3/uL; Eosinophils% 2.4 % (0-5); Hematocrit 52.7 % (40-54); Hemoglobin 17.1 g/dL (13.0-16.5); Lymphocyte # 2.23 X10^3/ul (0.83-4.51); Mean Corp Hgb Conc 32.4 g/dL (32-36); Mean Corpuscular Hgb 27.4 pg (27.0-32.0); Mean Corpuscular Volume 84.5 fL (80-94); Mean Platelet Vol. 11.1 fl (6.2-12.0); Monocyte# 0.53 X10^3/uL; Monocyte% 7.8 % (0-10); NRBC Flagged by Analyzer 0 % (0-5); Neutrophil # 3.76 X10^3/uL (2.7-7.7); Neutrophil % 55.6 % (47-70); Platelet Count 224 K/mm3 (150-450); RBC Distribution Width CV 13.2 % (11.6-14.6); RBC Distribution Width SD 41.1 fl (35.1-43.9); Red Blood Count 6.24 M/mm3 (4.6-6.2); White Blood Count 6.8 K/mm3 (4.4-11.0)
--- OUTSIDE RECORDS SUMMARY | 2023-08-06 11:28 | XMS RPT_ITS | CCD ---
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 entire session with patient. Harrison Beltre PT Patient Evaluation Form The patient is currently receiving Duoneb Q4HWA Points 0 1 2 3 4 Points Totals Pulmonary Status (-/+) History Smoking history < 20 pack years Smoking history > 20 pack years Pulmonary Disorder (acute or chronic) Severe or Chronic with Exacerbation 1 Surgical Status No Surgery Trach PEG General Surgery Lower Abdominal Thoracic or Upper Abdominal Thoracic with Pulmonary Disorder 2 Chest X-ray Clear None Ordered Chronic Changes CXR results Pending Infiltrates, atelectasis, pleural effusion, or edema Infiltrates in more than one lobe Infiltrate + Atelectasis, &/or pleural effusion 0 Respiratory Pattern Regular, RR = 12-20 Increased, RR = 21-25 KAUR, irregular, or RR = 26-30 Decreased FEV1 or RR = 31-35 Severe SOB, used of of accessory muscles, or RR = > 35 0 Mental Status Alert, oriented, cooperative Confused, but follows commands Lethargic or un-able to follow commands Obtunded Comatose 0 Breath Sounds Clear to auscultation Decreased unilaterally or in bases only Decreased bilaterally Crackles or intermittent wheezes Wheezes 1 Cough Strong, spontaneous, & nonproductive Strong, spontaneous, & productive Weak, nonproductive Weak, productive or with wheezes No spontaneous cough or may require suctioning 0 Level of Activity Ambulatory Ambulatory with Assist Non-ambulatroy Paraplegic Quadriplegic 1 Triage 1 > 20 pts Triage 2 16-20 pts Triage 3 11- 15 pts Triage 4 6 - 10 pts Triage 5 0 - 5 pts TOTAL POINTS = 5 Triage Score = 5 Changing Therapy to Duoneb Q4H PRN. Does IS independently. Images from the original note were not included. Department of Surgery Surgical Service 3 Daily Progress Note PATIENT NAME: Chuck Garza : 1965 ATTENDING PHYSICIAN: Dean Butterfield MD ADMIT DATE: 09/18/2020 TODAY'S DATE: 09/19/2020 SUBJECTIVE NAOE. VSS Overall doing well. C/o diffuse abdominal pain, relieved w/ medications No flatus or BMs yet Denies n/v OBJECTIVE VITALS: BP 116/77 Pulse 96 Temp 97.8 F (36.6 C) (Temporal) Resp 20 Ht 5' 11 (1.803 m) Wt 198 lb (89.8 kg) SpO2 98% BMI 27.62 kg/m PHYSICAL EXAM: CONSTITUTIONAL: NAD, A&O X3. CHEST: Resp effort easy and unlabored ABDOMEN: soft, mildly distended w/ some tympany noted to percussion, appropriately TTP, Peritoneal signs absent. Midline incision c/d/i, LLQ wound w/o drainage Incisions: C/D/I, no signs of bleeding INTAKE/OUTPUT: Date 09/19/20 0000 - 09/19/20 2359 Shift 9576-0333 1417-7730 7674-1323 24 Hour Total INTAKE P.O.(mL/kg/hr) 500 500 I.V.(mL/kg) 1187(13.2) 1187(13.2) Shift Total(mL/kg) 1687(18.8) 1687(18.8) OUTPUT Urine(mL/kg/hr) 550 550 Shift Total(mL/kg) 550(6.1) 550(6.1) Weight (kg) 89.8 89.8 89.8 89.8 I/O last 3 completed shifts: In: 3687 [P.O.:500; I.V.:3187] Out: 1390 [Urine:1290; Blood:100] No intake/output data recorded. Data Recent Labs 09/19/2032 WBC 10.4 HGB 15.4 HCT 46.7 PLT 175 Recent Labs 09/19/2032 NA 133* K 4.6 CL 104 CO2 23 BUN 20 CREATININE 0.80 GLUCOSE 234* No results for input(s): AST, ALT, ALB, BILITOT, ALKPHOS in the last 72 hours. Imaging Pertinent imaging reviewed. Current Inpatient Medications Current Facility-Administered Medications: methocarbamol (ROBAXIN) injection 750 mg, 750 mg, Intravenous, 4x Daily gabapentin (NEURONTIN) capsule 300 mg, 300 mg, Oral, BID insulin lispro (HUMALOG) injection vial 0-12 Units, 0-12 Units, Subcutaneous, TID WC insulin lispro (HUMALOG) injection vial 0-6 Units, 0-6 Units, Subcutaneous, Nightly glucose (GLUTOSE) 40 % oral gel 15 g, 15 g, Oral, PRN dextrose 50 % IV solution, 12.5 g, Intravenous, PRN glucagon (rDNA) injection 1 mg, 1 mg, Intramuscular, PRN dextrose 5 % solution, 100 mL/hr, Intravenous, PRN hydrALAZINE (APRESOLINE) injection 10 mg, 10 mg, Intravenous, Q4H PRN lactated ringers infusion, , Intravenous, Continuous sodium chloride flush 0.9 % injection 5-40 mL, 5-40 mL, Intravenous, 2 times per day sodium chloride flush 0.9 % injection 5-40 mL, 5-40 mL, Intravenous, PRN 0.9 % sodium chloride infusion, 25 mL, Intravenous, PRN enoxaparin (LOVENOX) injection 40 mg, 40 mg, Subcutaneous, Daily acetaminophen (TYLENOL) tablet 1,000 mg, 1,000 mg, Oral, 3 times per day oxyCODONE (ROXICODONE) immediate release tablet 5 mg, 5 mg, Oral, Q4H PRN OR oxyCODONE (ROXICODONE) immediate release tablet 10 mg, 10 mg, Oral, Q4H PRN ondansetron (ZOFRAN) injection 4 mg, 4 mg, Intravenous, Q6H PRN ipratropium-albuterol (DUONEB) nebulizer solution 1 ampule, 1 ampule, Inhalation, Q4H WA lidocaine 4 % external patch 2 patch, 2 patch, Transdermal, Daily HYDROmorphone (DILAUDID) injection 0.25 mg, 0.25 mg, Intravenous, Q4H PRN OR HYDROmorphone (DILAUDID) injection 0.5 mg, 0.5 mg, Intravenous, Q4H PRN ASSESSMENT AND PLAN 55 y.o. male status post open Lauren reversal 09/18 -CLD, continue IVF -await ROBF -dry gauze prn to LLQ wound -d/c noel -pain control prn -dvt ppx -OOBAT -HDSSI for glucose management -wdw Dr. Scout Miranda MD 09/19/2020 7:43 AM Attending Supervising Physician's Attestation Statement I performed a history and physical examination of the patient and discussed the findings and management with the resident physician. I reviewed and agree with the findings and plan as documented. Date of service is 09/19/20 documented in this encounter [facility] Work Phone: Hospital Discharge instructions 09-18-2020 Instructions Note Date & Type Note Facility 09-18-2020 Hospital Discharg e instructions Jeff Michael MD - 09/18/2020 Images from the original note were not included. Discharge Instructions Call your surgeon in 1 to 2 days to schedule a follow-up appointment in 1-2 weeks. OK to shower. OK for activity as tolerated. No lifting over 10 pounds. Wound Care: keep wound clean and dry, reinforce dressing PRN and ice to area for comfort. If you have peyton, they can be removed in 14 days after your surgery by your surgeon or PCP. No driving while taking narcotic/sedating medications. You may take an over the counter stool softener while on narcotics for constipation as needed (colace, miralax, etc). Continue your diet as currently ordered. Call your Physician or return to the Emergency Room if you experience: -New or increased pain. -New or increased bleeding. -Nausea & vomitting. -Fever & chills. -Shortness of breath. -Chest pain. -Abdominal distention. documented in this encounter [facility] Work Phone: Hospital Discharge instructions 09-15-2020 Instructions Note Date & Type Note Facility 09-15-2020 Hospital Discharg e instructions Hayley Sr RN - 09/15/2020 Please bring your [facility] Surgical Information folder on the day of surgery. Please bonilla the last dose taken (date and time ) on your Daily Medications List provided in your After Visit Summary. Please bring a photo ID and insurance information Do NOT take the following medications on the morning of surgery: glipizide, glimepiride, lisinopril TAKE the following medications the morning of your surgery: gabapentin You may take your prescription pain medications. You may take Tylenol (acetaminophen) if needed for pain. No Motrin, ibuprofen, or Advil 24 hours prior to surgery, or longer if instructed by your surgeon. No Aleve or Naprosyn 3 days prior to surgery, or longer if instructed by your surgeon. If you are on BLOOD THINNERS or ASPIRIN-denies use Additional instructions: read Diabetes Guidelines for Surgery , shower kit as instructed You will receive a reminder call the day before surgery with your Same Day Surgery arrival time. If you have specific questions, please call your surgeon. documented in this encounter [facility] Work Phone: Evaluation note Note Date & Type Note Facility documented in this encounter [facility] Work Phone: Evaluation note Note Date & Type Note Facility documented in this encounter [facility] Work Phone: Discharge Instructions * Instructions* Naty Sanchez RN - 08/21/2020 Colonoscopy: What to expect at home ACTIVITY: DO NOT DRIVE, OPERATE MACHINERY, OR DRINK ANY ALCOHOL TODAY. Avoid making critical decisions, signing legal documents, or performing any activity that requires alertness for the rest of the day. You may be bloated or have gas pains since air was introduced into the colon for the procedure. Youmay need to pass the gas throughout the day. You may experience a small amount of rectal bleeding; this can be normal after your colonoscopy. Notify your physician if the bleeding is enough to saturate your clothes. Rest the remainder of the day. You may resume normal activity tomorrow. You may return to work tomorrow. DIET: You may resume a normal diet unless notified or recommended by your physician. You may be eager to eat a large meal after fasting, but it is a good idea to start with light mealsand ease into solid foods the first day. (*) If your stomach is upset, try clear liquids and bland, low-fat foods like plain toast or rice. Drink plenty of fluids for the first 24 hours (unless your physician states otherwise). MEDICATION: Resume your normal home medications unless notified or recommended by your physician. If you take blood thinners (such as Coumadin, Eliquis, Plavix, Aspirin, etc.) or anti-inflammatory medications (Advil, Motrin, Aleve, etc.), ask your physician when you may resume these medications. FOLLOW-UP APPOINTMENT: Follow up with or call your physician as needed. When to call for help: Call your doctor IMMEDIATELY or seek medical care if you experience: Severe pain or vomiting A large amount (filling the toilet) of maroon, bloody stools or tar-like stools Your belly is swollen and firm with severe pain A fever greater than 101 degrees Redness or swelling of arm from the IV site for more than 48 hours Sudden onset of chest pain or shortness of breath If you become extremely dizzy or pass out (lose consciousness) IF YOU ARE UNABLE TO REACH YOUR PHYSICIAN GO TO NEAREST EMERGENCY DEPARTMENT documented in this encounter Advance Directives No Advanced Directives Records FoundDocuments on File Type Date Recorded Patient [facility] Expl anation ACP-Advance Directive ACP-Power of Lube Man Latest Code Status on File Code Status Date Activated Date Inactivated Comments Full Code 08/21/2020 1:52 PM Latest Code Status on File Code Status Date Activated Date Inactivated Comments Full Code 08/21/2020 1:52 PM 08/21/2020 5:14 PM Latest Code Status on File Code Status Date Activated Date Inactivated Comments Full Code 09/18/2020 6:12 PM Full Code 09/18/2020 10:36 AM 09/18/2020 6:04 PM Full Code 08/21/2020 1:52 PM 08/21/2020 5:14 PM Summary Purpose Family History No Family History Records FoundNo Family History Records FoundNo Family History Records Found Additional Source Comments Ordered Prescriptions (unrec ognized section and content) (unrecognized sect ion and content) No Status Records FoundNo Status Records FoundNo Status Records Found INFORMATION SOURCE (unrecogn ized section and content) DATE CREATED AUTHOR AUTHOR'S ORGANIZ ATNIDA 07/05/2021 [facility] DATE CREATED AUTHOR AUTHOR'S SANTIAGO STOKES 11/22/2021 [facility] FOR RECORDS PERTAINING TO PATIENTS WHO ARE OR HAVE BEEN ENROLLED IN A CHEMICAL DEPENDENCY/SUBSTANCEABUSE PROGRAM, SOME INFORMATION MAY BE OMITTED. This clinical summary was aggregated from multiple sources. Caution should be exercised in using it in the provision of clinical care. This summary normalizes information from multiple sources, and as a consequence, information in this document may materially change the coding, format and clinical context of patient data. In addition, data may be omitted in some cases. CLINICAL DECISIONS SHOULD BE BASED ON THE PRIMARY CLINICAL RECORDS. [facility]. provides no warranty or guarantee of the accuracy or completeness of information in this document.
[2023-08-06 12:06] LABS: Hemoglobin A1c 11.2 % (3.8-5.6)
[2023-08-06 12:07] LABS: Microalbumin,Random Urine 64.5 mg/L (NO RANGE EST.)
[2023-08-06 12:13] LABS: AST(SGOT) 14 U/L (15-37); Alanine Aminotransfer ALT/SGPT 22 U/L (16-61); Albumin, Serum 3.6 g/dL (3.2-5.0); Alkaline Phosphatase 67 U/L (45-117); Anion Gap 7 (5-15); BUN 9 mg/dL (7-18); BUN/Creat Ratio 8.7 RATIO (10-20); Calcium,Total 9.9 mg/dL (8.5-10.1); Chloride 105 mmol/L (98-107); Cholesterol 164 mg/dL (200); Creatinine, Serum 1.04 mg/dL (0.70-1.30); EST Glomerular Filtration Rate 78 mL/min (>60); Est Glom Filt Rate - Afr Amer 94 mL/min (>60); Globulin 3.7 g/dL (2.2-4.2); Glucose 366 mg/dL (74-106); High Density Lipoprotein 40 mg/dL; Potassium 4.1 mmol/L (3.5-5.1); Protein, Total 7.3 g/dL (6.4-8.2); Sodium Level 135 mmol/L (136-145); Thyroid Stim Hormone (TSH) 0.93 uIU/mL (0.358-3.74); Triglycerides 244 mg/dL; Very Low Density Lipoprotein 49 mg/dL (5-40)
== END | disposition home or self-care (01) ==
LOC: POLAB3 10:45
PROVIDERS: PCP Family Medicine Geriatric Medicine; Visit Provider Family Medicine Geriatric Medicine
DX: E11.65 Type 2 diabetes mellitus with hyperglycemia (principal); E11.22 Type 2 diabetes mellitus with diabetic chronic kidney disease; I12.9 Hypertensive chronic kidney disease with stage 1 through stage 4 chronic kidney disease, or unspecified chronic kidney disease; E78.5 Hyperlipidemia, unspecified; N18.9 Chronic kidney disease, unspecified
CPT/HCPCS: 36415; 80053; 80061; 82043; 83036; 84443; 85025

== ENCOUNTER → 2023-09-08 | Outpatient (CLI) | payer MEDICARE, SELFPAY ==
--- NOTE | 2023-09-08 15:44 | MRI_ITS ---
STUDY: MRI RIGHT SHOULDER REASON FOR EXAM: Male, 58 years old. Evaluate for rotator cuff tear. TECHNIQUE: Standardized fat and water weighted pulse sequences were obtained in all 3 orthogonal planes. COMPARISON: Right shoulder x-rays dated 08/08/2023 FINDINGS: Full thickness full width retracted tears of the supraspinatus and infraspinatus tendons. Infraspinatus tendon is retracted approximately 4.4 cm from its insertion site and supraspinatus tendon is retracted approximately 3.7 cm from its insertion site (coronal series 4 images 5-16). Subscapularis tendinosis with marked thickening, increased signal intensity and articular surface fraying without a partial thickness or full thickness tear (axial series 2 images 7-13). Normal teres minor tendon. Mild atrophy of the supraspinatus and infraspinatus muscles (sagittal series 6 images 17-23). Normal subscapularis muscle. Normal teres minor muscle. Moderate thinning of the articular cartilage of the glenohumeral joint with a moderate-sized joint effusion (axial series 2 images 6-15). Superior migration of the humeral head which resides under the acromion (coronal series 4 image 10). Normal biceps labral complex. Normal intracapsular long biceps tendon. Normal labrum. Normal capsulo- ligamentous complex. Normal rotator interval. Acromioclavicular joint hypertrophy with narrowing of the subacromial space (sagittal series 6 images 14-20). There is a Type II morphology (curved), with a neutral orientation. Fluid in the subacromial-subdeltoid bursa (coronal series 4 image 7). Normal visualized coracohumeral and coracoacromial ligaments. Normal quadrilateral space. Normal axillary space. Normal deltoid muscle. Normal trapezius muscle. MRI/Upper Ext Joint Only(Routine) IMPRESSION: Full-thickness full width retracted supraspinatus and infraspinatus tendon tears with mild atrophy of the supraspinatus and infraspinatus muscles. Subscapularis tendinosis without a partial thickness or full-thickness tear. Moderate arthrosis of the glenohumeral joint. Superior migration of the humeral head which it resides under the acromion. Acromioclavicular joint hypertrophy with narrowing of the subacromial space. Moderate-sized glenohumeral joint effusion with fluid in the subacromial-subdeltoid bursa. Electronically Signed: Veto Malik MD at 9:44 EDT ,
== END | disposition home or self-care (01) ==
PROVIDERS: PCP Family Medicine Geriatric Medicine; Referring Provider Orthopaedic Surgery Sports Medicine; Visit Provider Orthopaedic Surgery Sports Medicine
DX: M25.511 Pain in right shoulder (principal)
CPT/HCPCS: 73221

== ENCOUNTER 2023-10-22 06:30 | Day surgery (SDC) | payer MEDICARE, MEDICAID, SELFPAY ==
--- NOTE | 2023-10-21 10:52 | EKG12_ITS ---
Test Reason : PREOP Blood Pressure : / mmHG Vent. Rate : 110 BPM Atrial Rate : 110 BPM P-R Int : 196 ms QRS Dur : 080 ms QT Int : 328 ms P-R-T Axes : 058 064 068 degrees QTc Int : 443 ms Sinus tachycardia Otherwise normal ECG Confirmed by Perry Madrid ([id number]), graphics editor OC MOON ([id number]) on 10/22/2023 8:54:28 AM Referred By: Ritchie Harris Confirmed By:Perry Madrid
[2023-10-21 11:36] LABS: Hematocrit 51.3 % (40-54); Hemoglobin 16.9 g/dL (13.0-16.5); Mean Corp Hgb Conc 32.9 g/dL (32-36); Mean Corpuscular Volume 84.9 fL (80-94); Platelet Count 213 K/mm3 (150-450); RBC Distribution Width CV 13.2 % (11.6-14.6); RBC Distribution Width SD 40.8 fl (35.1-43.9); Red Blood Count 6.04 M/mm3 (4.6-6.2); White Blood Count 7.4 K/mm3 (4.4-11.0)
[2023-10-21 12:02] LABS: Anion Gap 9 (5-15); BUN 14 mg/dL (7-18); BUN/Creat Ratio 11.8 RATIO (10-20); Calcium,Total 9.6 mg/dL (8.5-10.1); Chloride 102 mmol/L (98-107); Creatinine, Serum 1.19 mg/dL (0.70-1.30); EST Glomerular Filtration Rate 67 mL/min (>60); Est Glom Filt Rate - Afr Amer 81 mL/min (>60); Glucose 381 mg/dL (74-106); Potassium 4.6 mmol/L (3.5-5.1); Sodium Level 135 mmol/L (136-145)
[2023-10-21 14:52] LABS: Hemoglobin A1c 11.6 % (3.8-5.6)
[2023-10-22] VITALS (9 sets, daily range): BP systolic 108–128; BP diastolic 70–80; PULSE 77–96; RESP 16; TEMP 36–37.1; O2SAT 95–98; BMI 23.6
[2023-10-22] MEDS: Lactated Ringers 1,000 ML 15 ML IV (07:00)
[2023-10-22 07:48] LABS: Bedside Glucose 264 mg/dL (74-106)
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
[2023-10-22] MEDS: Cefazolin 2 GM in 0.9% Normal Saline (100mL Bag) 100 ML IV (08:26)
[2023-10-22] MEDS: Epinephrine (1 mg/ml) 1 MG/ML VIAL (08:58)
--- NOTE | 2023-10-22 10:51 | OP.PCM_ITS ---
Problems Associated Problem List Diagnoses (1) Right rotator cuff tear: Report of Operation Date of Procedure: 10/22/23 Pre-Operative Diagnosis: Right shoulder massive rotator cuff tear Post-Operative Diagnosis: Same Surgery/Procedure Performed:: Right shoulder arthroscopy subacromial decompression debridement and tuberoplasty Surgeon: Ritchie Harris Type of Anesthesia: Block,Regional and General Anesthesiologist: Ronnie Hartmann Estimated Blood Loss (mL): 50 Description of Procedure: Patient brought to the operating room theater. Placed supine on the table. 2 g IV Ancef administered prior to the start of procedure. General anesthesia induced. Patient transferred right side up lateral decubitus beanbag positioner used. Axillary roll placed. All bony prominences padded. SCDs on the legs. Upper extremity prepped and draped in the usual sterile fashion with chlorhexidine-based prep solution allowing over 3 minutes drying time prior to draping. Preoperative timeout performed from the site patient and surgery. Arm was placed in 10 pounds of inline traction with 45 degrees of abduction. Made a standard posterior arthroscopy portal did a full diagnostic arthroscopy of the shoulder. Anterior portal created through the rotator interval inside- out spinal needle localization. Biceps had some synovitis biceps was thin overall. No tearing of the biceps circumferential fraying of the labrum I debrided as well as debrided fraying at the rotator interval subscapularis appeared normal. There is a full-thickness supraspinatus tear with retraction to the glenoid. Mild OA grade 1 both sides. There is some remaining stump and scar tissue at the greater tuberosity. I debrided that. I performed a subacromial decompression for about 2 mm but left the CA ligament intact. No loose bodies. I prepped the greater tuberosity. Established lateral portal and accessory AL portal. I assessed the cuff tear on the glenoid nonmobile to about the mid joint level. Used the power pick instrument as well as removed any soft tissue from the greater tuberosity. I placed 2 Arthrex bio composite 4.75 mm swivel lock anchors at the articular margin anteriorly and posteriorly to the footprint. I measured for the graft from anterior to posterior this was 20 mm A to P and to M to L this was 15 mm. I cut the graft. Ensured to keep the proper side of the graft superiorly and marked this with a pen. I cut the graft using the Arthrex arthroflex graft material. I placed fiber link sutures in all 4 corners. I used a passport cannula laterally. Then shuttle the repair suture from inferior to superior along the medial edge of the graft at the corners. I then converted the sutures pulled the graft into the shoulder. The anterior medial anchor this was actually looped around the lateral sutures so I had to remove those and replace those to get the graft to sit down medially. I then passed the lateral fiber link sutures through a self punching Arthrex 4.75 mm anchor, 2 of them laterally. Tapped this into place and secured the anchor down cut the suture short. The arthroflex graft was appropriately placed and covering the tuberosity. Final pictures taken and saved onto the system throughout the case. Case terminated skin cleaned with wet dry dressing followed application of Steri- Strips Adaptic 4 x 4 gauze ABD dressing tape and an abduction pillow sling for the upper extremity. Patient was awoken from the general anesthetic transferred off the operating table and taken postanesthetic care unit in stable condition. All sponge needle instrument counts were correct no complications. cpt [id number]? Complications none Admit VTE Documentation VTE Present on Admission: No VTE Mechan Device Prophylaxis: SCD's VTE Pharm Prophylaxis ordered?: No Reason prophylaxis not ordered:: Treatment Not Indicated Procedures Musculoskeletal 20xxx-29xxx: Other Procedure See Report
--- NOTE | 2023-10-22 11:02 | EX.PCM.DISCH ---
Discharge Instructions Diet Discharge Diet: No restrictions Activity Ice area for (Minutes): 10 Lifting Restrictions: pendulums only 4x/day Dressing / Incision Call your doctor if your incision/area has: Continuous Slow Oozing, Sudden Increased Bleeding, Increased Pain/ Swelling, Increased Redness, Foul Smelling Discharge and Swelling at the incision site Change Dressing in: leave in place till F/U Follow Up Care Please Follow Up With: Ritchie Harris MD When: 2 days Test Results: Test results from this visit will be discussed in further detail at your follow-up appointment, if applicable. Discharge Plan Admission Attending Provider: Ritchie Harris Primary Care Provider: Miquel Morfin Chi Instructions Print Language: [place] Discharge Orders/Prescriptions Prescriptions: New oxycodone-acetaminophen [Endocet] 5-325 mg tablet 1 tab PO Q4H MDD 6 PRN (Reason: pain) 5 Days Qty: 30 0RF No Action (DME) FreeStyle Ligia 14 Day Sensor Kit See Rx Instructions .ROUTE .MEDSUPPLY Qty: 2 8RF Rx Instructions: change every 14 days insulin aspart U-100 [Novolog FlexPen U-100 Insulin] 100 unit/mL (3 mL) insulin pen See Rx Instructions subcut TID MDD 40 Qty: 15 6RF Rx Instructions: 12 units tid plus sliding scale subcut three times a day; 180 +2, 211 +3, 241 +5, 270 +8 Novolin N FlexPen 100 unit/mL (3 mL) insulin pen 20 unit subcut BID Qty: 15 5RF (DME) pen needle, diabetic [BD Ultra-Fine Patricia Pen Needle] 32 gauge x 5/32 needle See Rx Instructions .ROUTE .MEDSUPPLY Qty: 150 5RF Rx Instructions: 5 times daily gabapentin 300 mg capsule 300 mg PO TID lisinopril 5 mg tablet 5 mg PO DAILY rosuvastatin 40 mg tablet 40 mg PO QHS (DME) pen needle,diabetic, disp unit 31 gauge x 1/4 needle See Rx Instructions .ROUTE .MEDSUPPLY Qty: 100 0RF Rx Instructions: As directed sulfamethoxazole-trimethoprim [Bactrim DS] 800-160 mg tablet 1 tab PO BID Qty: 14 0RF citalopram 20 mg tablet 20 mg PO DAILY ergocalciferol (vitamin D2) [Drisdol] 1,250 mcg (50,000 unit) capsule 1,250 mcg PO QMONTH Referrals / Follow Up: Ritchie Harris MD [Med Staff - Active Staff] - Miquel Morfin Chi, MD [Primary Care Provider] - Disposition Disposition (needs filled in before D/C Order can be placed): Home, Self Care
[2023-10-22 12:38] LABS: Bedside Glucose 331 mg/dL (74-106)
[2023-10-22] MEDS: Insulin Lispro 100 UNIT/ML INSULN.PEN 8 UNIT SC (13:07)
[2023-10-22 14:05] LABS: Bedside Glucose 268 mg/dL (74-106)
== END 2023-10-22 14:25 | disposition home or self-care (01) ==
LOC: SDC 06:33 → AC 06:34
PROVIDERS: Anesthesiology; PCP Family Medicine Geriatric Medicine; Referring Provider Orthopaedic Surgery Sports Medicine; Visit Provider Orthopaedic Surgery Sports Medicine
PROC: (CPT 29805; principal; 2023-10-22 08:15)
DX: M75.101 Unspecified rotator cuff tear or rupture of right shoulder, not specified as traumatic (principal); Z89.612 Acquired absence of left leg above knee; E11.22 Type 2 diabetes mellitus with diabetic chronic kidney disease; Z79.4 Long term (current) use of insulin; I12.9 Hypertensive chronic kidney disease with stage 1 through stage 4 chronic kidney disease, or unspecified chronic kidney disease; N18.1 Chronic kidney disease, stage 1; E78.00 Pure hypercholesterolemia, unspecified; F17.210 Nicotine dependence, cigarettes, uncomplicated; Z79.899 Other long term (current) drug therapy
CPT/HCPCS: 29823; 29999; 64415; 01630; 36415; 80048; 82962; 83036; 85027; 93005; C1713; J7120; J2405

== ENCOUNTER → 2025-03-30 | Outpatient (CLI) | payer MEDICARE, SELFPAY ==
--- NOTE | 2025-03-30 11:47 | RAD_ITS ---
PROCEDURE: HIP, UNI W/ PELVIS 2-3 VIEWS 03/30/2025 REASON FOR EXAM: PAIN TECHNIQUE: Procedure Code: RAD Modality: DX Procedure: HIP, UNI W/ PELVIS 2-3 VIEWS Laterality: Right COMPARISON: None provided. RAD/HIP, UNI W/ Pelvis 2-3 Views IMPRESSION: Previous resection of the left lower extremity, also with marked deformity of t he remaining portions of the left hemipelvis, consistent with posttraumatic change. Multiple surgical clips are seen of the left hemipelvis. Prominent degenerative changes of the visualized lower lumbar spine. The right hip joint demonstrates mild degenerative changes, without significant associated joint narrowing. No acute fracture or dislocation is seen. If clinical concern persists, short-term follow-up imaging may be obtained to r ule out a currently occult fracture. Reading Location: [place] [address]
--- OUTSIDE RECORDS SUMMARY | 2025-03-30 13:47 | XMS RPT_ITS | CCD ---
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 Miquel Palacio Chi Primary Care Provider 1([facility])[phone] Dr. Miquel Palacio Chi Referring Provider 1([facility])[phone] SG Chaudhari Attending Provider 1([facility])[phone] Dr. Miquel Palacio Chi Primary Care Provider 1([facility])[phone] Dr. Miquel Palacio Chi Referring Provider 1([facility])[phone] MD Ritchie Harris Attending Provider 1([facility])- [phone] Dr. Abdon Alvarez Attending Provider 1([facility])-[phone] Dr. Miquel Palacio Chi Primary Care Provider 1([facility])[phone] Dr. Miquel Palacio Chi Referring Provider 1([facility])[phone] MD Ritchie Harris Attending Provider 1([facility])- [phone] Dr. Abdon Alvarez Attending Provider 1([facility])-57 Miquel Palacio Chi Primary Care Unavailable Suzette Barrera Attending Unavailable Nick Bella Attending Unavailable Nick Bella Referring Unavailable Miquel Palacio Chi Primary Care Unavailable Shruti Najera Attending Unavailable NavjotMiquel pedro Chi Primary Care Unavailable Allergies Allergy Classification Reported Allergen(s) Allergy Type Date of Onset Reaction(s) Facility (1 source) Penicillins Drug allergy (disorder) [facility] Repository Medications Current Medications Medication Drug [...] ipratropium-albuter ol (DUONEB) nebulizer solution 1 ampule Start: 09-18-2020 End: 09-19-2020 1 ampule, Inhalation, EVERY 4 HOURS WHILE AWAKE, First dose on Fri09/18/20 at 2000 ascorbic acid 60 mg / beta carotene 5000 unt / copper sulfate 40 mg / dl-alpha tocopheryl acetate 30 unt / sodium selenite 0.04 mg / zinc oxide 40 mg oral tablet (1 source) Vitamin C take 1 tablet by mouth once daily Multiple Vitamins-Minerals (THERAPEUTIC MULTIVITAMIN-MINERALS) tablet Take 1 tablet by mouth daily 0 Active celecoxib 200 mg oral capsule (9 sources) Nonsteroidal Anti-inflammatory Drug Start: take 200 mg by mouth once daily Celecoxib Active 200 MG PO DAILY April 12, 2021 1:00am Start: 09-18-2020 End: 09-18-2020 celecoxib (CELEBREX) capsule 400 mg 0.4 ml enoxaparin sodium 100 mg/ml prefilled syringe (1 source) Low Molecular Weight Heparin Start: 09-19-2020 inject 40 mg by subcutaneous injection once daily 40 mg, Subcutaneous, DAILY, First dose on Fri09/19/20 at 0900 ferrous sulfate 325 mg oral tablet (1 source) Start: 09-19-2020 ferrous sulfate (IRON 325) tablet 325 mg Flash Glucose Sensor (Freestyle Ligia 14 Day Sensor) kit (8 sources) Start: 05-08-2021 Flash Glucose Sensor (Freestyle Ligia 14 Day Sensor) kit Active 0 .ROUTE .MEDSUPPLY May 08, 2021 12:14pm change every 14 days Start: 05-08-2021 Flash Glucose Sensor (Freestyle Ligia 14 Day Sensor) kit Active 0 .ROUTE .MEDSUPPLY May 08, 2021 1:00am change every 14 days Start: 05-08-2021 Flash Glucose Sensor (Freestyle Ligia 14 Day Sensor) kit Active 0 .ROUTE .MEDSUPPLY May 08, 2021 12:00am change every 14 days gabapentin 300 mg oral capsule (13 sources) Anti-epileptic Agent Start: 04-12-2021 take 300 mg by mouth three times daily Gabapentin Active 300 MG PO THREE TIMES A DAY April 12, 2021 1:00am Start: 09-18-2020 take 300 mg by mouth twice rodríguez ly 300 mg, Oral, 2 TIMES DAILY, First dose on Fri09/18/20 at 2000 Start: 09-18-2020 gabapentin (NE URONTIN) capsule 100 mg take 3 capsules by m outh twice daily gabapentin (NEURONTIN) 100 MG capsule Take 300 mg by mouth 2 times daily. 0 Active take 2 capsules by m outh twice daily gabapentin (NEURONTIN) 100 MG capsule Take 200 mg by mouth 2 times daily. 0 Active take 3 capsules by m outh three times daily gabapentin (NEURONTIN) 100 MG capsule Take 300 mg by mouth 3 times daily 0 Active glucagon (rdna) 1 mg injection (1 source) Antihypoglycemic Agent Start: 09-18-2020 take 1 mL intravenously every hour 1 mg, Intramuscular, PRN, Low blood sugar, Blood glucose less than 70 mg/dL and patient NOT ALERT or NPO and does not have IV access., Starting Fri09/18/20 at 1812 After administration, attempt intravenous access and start D5W at 100 mL/hr. Repeat blood glucose in 15 minutes x2 and notify provider. 150 ml glucose 50 mg/ml injection (3 sources) Start: 09-18-2020 15 g, Oral, PRN, Low blood sugar, Starting Fri09/18/20 at 1812 If blood glucose less than 50 mg/dL and patient ALERT and TOLERATING PO, give 2 tubes glucose gel. If blood glucose less than 70 mg/dL and patient ALERT and TOLERATING PO, give 1 tube glucose gel. Repeat blood glucose in 15 minutes. If blood glucose is less than 70 mg/dL, repeat treatment and recheck blood glucose in 15 minutes x2 and notify provider. Start: 09-18-2020 12.5 g, Intrav enous, PRN, Low blood sugar, Blood glucose less than 70 mg/dL and patient NOT ALERT or NPO., Starting Fri09/18/20 at 1812 If patient does not respond within 5 minutes, repeat dose x1. Start D5W at 100 mL/hour until ordering provider can be reached. Repeat blood glucose in 15 minutes. If blood glucose is less than 70 mg/dL, repeat treatment and recheck blood glucose in 15 minutes x2. If using Glucostabilizer, dose as instructed per system. Start: 09-18-2020 100 mL/hr, Int ravenous, at 100 mL/hr, PRN, Low blood sugar, Starting Fri09/18/20 at 1812 Start infusion following administration of dextrose 50% or glucagon. 1 ml hydrALAZINE hydrochloride 20 mg/ml injection (1 source) Arteriolar Vasodilator Start: 09-18-2020 10 mg, Intravenous, EVERY 4 HOURS PRN, High Blood Pressure, SBP >160, hold if HR > 100, Starting Fri09/18/20 at 1812 3 ml insulin aspart, human 100 unt/ml pen injector (16 sources) Insulin Analog Start: 05-08-2021 Insulin Aspart U-100 (Novolog Flexpen U-100 Insulin) 100 unit/mL (3 mL) insulin pen Active 0 SC THREE TIMES A DAY May 08, 2021 12:18pm 12 units tid plus sliding scale subcut three times a day; 180 +2, 211 +3, 241 +5, 270 +8 Start: 04-14-2021 End: 05-08-2021 Insulin Aspart U-100 (Novolo g Flexpen U-100 Insulin) 100 unit/mL (3 mL) insulin pen Discontinued 6 UNIT SC THREE TIMES A DAY April 14, 2021 1:00am May 08, 2021 12:23pm 3 ml insulin isophane, human 100 unt/ml pen injector (16 sources) Start: 05-08-2021 Insulin Nph Is oph U-100 Human (Novolin N Flexpen) 100 unit/mL (3 mL) insulin pen Active 20 UNIT SC TWICE A DAY May 08, 2021 1:00am Start: 04-14-2021 End: 05-08-2021 Insulin Nph Isoph U-100 Rosita n (Novolin N Nph U-100 Insulin) 100 unit/mL suspension Discontinued 12 UNIT SC TWICE A DAY April 14, 2021 1:00am May 08, 2021 12:20pm insulin lispro 100 unt/ml injectable solution (4 sources) Insulin Analog Start: 09-18-2020 End: 09-19-2020 insulin lispro (HUMALOG) injection vial 0-9 Units Start: 09-18-2020 End: 09-19-2020 0-12 Units, Subcutaneous, 3 TIMES DAILY WITH MEALS, First dose on Fri09/18/20 at 1830 Medium Dose Corrective Algorithm Glucose: Dose: If <139 No Insulin 140-199 2 Units 200-249 4 Units 250-299 6 Units 300-349 8 Units 350-400 10 Units Above 400 12 Units lidocaine 0.04 mg/mg medicated patch (1 source) Antiarrhythmic, Amide Local Anesthetic Start: 09-18-2020 lidocaine 4 % external patch 2 patch lisinopril 5 mg oral tablet (11 sources) Angiotensin Converting Enzyme Inhibitor Start: 04-12-2021 take 5 mg by mouth once daily Lisinopril Active 5 MG PO DAILY April 12, 2021 1:00am take 1 tablet by mouth once jaxon y lisinopril (PRINIVIL;ZESTRIL) 5 MG tablet Take 5 mg by mouth daily 0 Active methocarbamol 500 mg oral tablet (2 sources) Muscle Relaxant Start: 09-21-2020 methocarbamol (ROBAXIN) tablet 750 mg Start: 09-19-2020 End: 09-21-2020 methocarbamol (ROBAXIN) inje ction 750 mg NONFORMULARY (3 sources) End: 09-23-2020 take 30 mg by mouth once daily NONFORMULARY Take 30 mg by mouth daily Ploglitazone 0 09/23/2020 Discontinued (Stop Taking at Discharge) End: 09-18-2020 NONFORMULARY nightly Cholest clarence medication 0 09/18/2020 Discontinued (LIST CLEANUP) NONFORMULARY nig htly Cholesterol medication 0 Active 2 ml ondansetron 2 mg/ml injection (1 source) Serotonin-3 Receptor Antagonist Start: 09-18-2020 4 mg, Intravenous, EVERY 6 HOURS PRN, Nausea, Vomiting, Starting 09/18/20 at 1812 oxyCODONE (4 sources) Opioid Agonist Start: 09-18-2020 oxyCODONE (PINKY ICODONE) immediate release tablet 5 mg End: 09-18-2020 take 1 capsule by mouth every four hours as needed for pain oxyCODONE 5 MG capsule Take 5 mg by mouth every 4 hours as needed for Pain 0 09/18/2020 Discontinued (LIST CLEANUP) Pen Needle,Diabetic, Disp Un it (8 sources) Start: 04-14-2021 Pen Needle,Delicia betic, Disp Unit Active 0 .ROUTE .MEDSUPPLY April 14, 2021 1:15pm As directed Start: 04-14-2021 Pen Needle,Delicia betic, Disp Unit Active 0 .ROUTE .MEDSUPPLY April 14, 2021 1:00am As directed Start: 04-14-2021 Pen Needle,Delicia betic, Disp Unit Active 0 .ROUTE .MEDSUPPLY April 14, 2021 12:00am As directed rivaroxaban 20 mg oral tablet (1 source) Factor Xa Inhibitor rivaroxaban (XARELTO ) 20 MG TABS tablet Take 20 mg by mouth 0 Active rosuvastatin calcium 40 mg oral tablet (9 sources) HMG-CoA Reductase Inhibitor Start: take 40 mg by mouth at bedtime Rosuvastatin Active 40 MG PO AT BEDTIME April 12, 2021 1:00am take 4 mg by mouth once daily RO SUVASTATIN CALCIUM PO Take 4 mg by mouth daily 0 Active 3 ml sodium chloride 9 mg/ml injection (3 sources) Start: 09-18-2020 take 1 dose intravenously twice daily 5-40 mL, Intravenous, EVERY 12 HOURS SCHEDULED (2 times per day), First dose on Fri09/18/20 at 2100 For Line Patency: Peripheral IV = 5 mL; Midline or Central Line = 10 mL/lumen. If following IV push medication, administer flush at same rate as the IV push. Flush volume is determined by type of infusion therapy being given. For non-viscous solutions use: Peripheral IV = 5 mL Midline or Central Line = 10 mL/lumen For viscous solutions (i.e. blood components, parenteral nutrition, contrast media, or after obtaining blood sample) use: Peripheral IV = 10 mL Midline or Central Line = 20 mL/lumen Start: 09-18-2020 take 5-40 mL intrave nously once as needed 5-40 mL, Intravenous, PRN, Line Care, After every IV line use, Starting Fri09/18/20 at 1812 For Line Patency: Peripheral IV = 5 mL; Midline or Central Line = 10 mL/lumen. If following IV push medication, administer flush at same rate as the IV push. Flush volume is determined by type of infusion therapy being given. For non-viscous solutions use: Peripheral IV = 5 mL Midline or Central Line = 10 mL/lumen For viscous solutions (i.e. blood components, parenteral nutrition, contrast media, or after obtaining blood sample) use: Peripheral IV = 10 mL Midline or Central Line = 20 mL/lumen Start: 09-18-2020 take 25 mL intraveno usly every hour as needed 25 mL, Intravenous, at 100 mL/hr, PRN, If patient receiving piggyback infusions without ordered maintenance IV fluids or with frequent/long duration piggyback infusions, Starting Fri09/18/20 at 1812 Administer at the same rate as the piggyback being infused. sulfamethoxazole 800 mg / trimethoprim 160 mg oral tablet (16 sources) Dihydrofolate Reductase Inhibitor Antibacterial, Sulfonamide Antimicrobial Start: 04-14-2021 take 1 tablet by mouth twice daily Sulfamethoxazole-Trimethoprim (Bactrim Ds) 800-160 mg tablet Active 1 TABLET PO TWICE A DAY April 14, 2021 1:00am Start: 04-14-2021 take 1 tablet by michael th once daily Sulfamethoxazole-Trimethoprim (Bactrim D s) 800-160 mg tablet Active 1 TABLET PO DAILY April 14, 2021 1:00am Start 04/21/2021 after completion of twice daily Bactrim Completed/Discontinued Medications Medication Drug Class(es) Dates Sig (Normalized) Sig (Original) ALPRAZolam 0.25 mg disintegrating oral tablet (4 sources) Benzodiazepine Start: 09-18-2020 End: 09-18-2020 ALPRAZolam (NIRAVAM) dissolvable tablet 0.25 mg End: 09-18-2020 take 1 tablet by mouth once daily as needed for sleep ALPRAZolam (XANAX) 0.25 MG tablet Take 0.25 mg by mouth nightly as needed for Sleep 0 09/18/2020 Discontinued (LIST CLEANUP) ascorbic acid 500 mg oral tablet (3 sources) Vitamin C End: 09-18-2020 take 1 tablet by mouth once daily ascorbic acid (VITAMIN C) 500 MG tablet Take 500 mg by mouth daily 0 09/18/2020 Discontinued (LIST CLEANUP) calcium chloride 0.0014 meq/ml / potassium chloride 0.004 meq/ml / sodium chloride 0.103 meq/ml / sodium lactate 0.028 meq/ml injectable solution (2 sources) Start: 09-18-2020 End: 09-20-2020 Intravenous, at 75 mL/hr, CONTINUOUS, Starting Fri09/18/20 at 1830 Start: 09-18-2020 End: 09-18-2020 lactated ringers infusion cefTRIAXone (ROCEPHIN) 2000 mg IVPB in D5W 50ml minibag (1 source) Start: 09-18-2020 End: 09-18-2020 cefTRIAXone (ROCEPHIN) 2000 mg IVPB in D5W 50ml minibag dapagliflozin 10 mg oral tablet (8 sources) Sodium-Glucose Cotransporter 2 Inhibitor Start: 04-12-2021 End: 04-14-2021 take 1 tablet by mouth once daily Dapagliflozin Propanediol (Farxiga) 10 mg tablet Discontinued 10 MG PO DAILY April 12, 2021 1:00am April 14, 2021 1:13pm docusate sodium 100 mg oral capsule (3 sources) End: 09-18-2020 take 1 capsule by mouth twice daily docusate sodium (COLACE) 100 MG capsule Take 100 mg by mouth 2 times daily 0 09/18/2020 Discontinued (LIST CLEANUP) famotidine 20 mg oral tablet (1 source) Histamine-2 Receptor Antagonist Start: 09-18-2020 End: 09-18-2020 famotidine (PEPCID) tablet 20 mg Start: 09-18-2020 End: 09-18-2020 famotidine (PEPCID) tablet 2 0 mg glimepiride 4 mg oral tablet (11 sources) Sulfonylurea Start: 04-12-2021 End: 04-14-2021 take 4 mg by mouth twice daily Glimepiride Discontinued 4 MG PO TWICE A DAY April 12, 2021 1:00am April 14, 2021 1:13pm take 1 tablet by mouth twice rodríguez ly glimepiride (AMARYL) 4 MG tablet Take 4 mg by mouth 2 times daily 0 Active take 1 tablet by michale once daily before breakfast glimepiride (AMARYL) 4 MG tablet Take 4 mg by mouth every morning (before breakfast) 0 Active glipiZIDE 5 mg oral tablet (3 sources) Sulfonylurea End: 09-18-2020 take 1 tablet by mouth once daily glipiZIDE (GLUCOTROL) 5 MG tablet Take 5 mg by mouth daily 0 09/18/2020 Discontinued (LIST CLEANUP) 500 ml glucose 50 mg/ml / potassium chloride 0.02 meq/ml / sodium chloride 4.5 mg/ml injection (1 source) Start: 09-20-2020 End: 09-21-2020 dextrose 5 % and 0.45 % NaCl with KCl 20 mEq infusion 1 ml heparin sodium, porcine 5000 unt/ml prefilled syringe (1 source) Unfractionated Heparin, Anti-coagulant Start: 09-18-2020 End: 09-18-2020 heparin (porcine) injection 5,000 Units Start: 09-18-2020 End: 09-18-2020 heparin (porcine) injection 5,000 Units 1 ml HYDROmorphone hydrochloride 1 mg/ml cartridge (1 source) Opioid Agonist Start: 09-18-2020 End: 09-18-2020 HYDROmorphone (DILAUDID) injection 0.5 mg 100 ml metroNIDAZOLE 5 mg/ml injection (1 source) Nitroimidazole Antimicrobial Start: 09-18-2020 End: 09-18-2020 metronidazole (FLAGYL) 500 mg in NaCl 100 mL IVPB premix morphine sulfate 15 mg oral tablet (2 sources) Opioid Agonist End: 09-15-2020 take 2 tablets by mouth every four hours as needed for pain morphine (MSIR) 15 MG tablet Take 30 mg by mouth every 4 hours as needed for Pain . 0 09/15/2020 Discontinued (Therapy completed) Multiple Vitamins-Minerals (THERAPEUTIC MULTIVITAMIN-MINERA LS) tablet (2 sources) End: 09-18-2020 take 1 tablet by mouth once daily Multiple Vitamins-Minerals (THERAPEUTIC MULTIVITAMIN-PERSONNEL CLERK ALS) tablet Take 1 tablet by mouth daily 0 09/18/2020 Discontinued (LIST CLEANUP) take 1 tablet by mouth once jaxon y Multiple Vitamins-Minerals (THERAPEUTIC MULTIVITAMIN-MINERALS) tablet Take 1 tablet by mouth daily 0 Active mupirocin 0.02 mg/mg topical ointment (8 sources) RNA Synthetase Inhibitor Antibacterial Start: 04-14-2021 End: 01-02-2022 Mupirocin Discontinued 1 APPLIC NASAL TWICE A DAY April 14, 2021 1:00am January 02, 2022 9:22am omeprazole 20 mg delayed release oral capsule (3 sources) Proton Pump Inhibitor End: 09-18-2020 take 1 capsule by mouth once daily omeprazole (PRILOSEC) 20 MG capsule Take 20 mg by mouth daily 0 09/18/2020 Discontinued (LIST CLEANUP) pioglitazone 30 mg oral tablet (8 sources) Peroxisome Proliferator Receptor alpha Agonist, Peroxisome Proliferator Receptor gamma Agonist, Thiazolidinedione Start: 04-12-2021 End: 04-14-2021 take 30 mg by mouth once daily Pioglitazone Discontinued 30 MG PO DAILY April 12, 2021 1:00am April 14, 2021 1:13pm polyethylene glycol 3350 [id number] mg powder for oral solution (3 sources) Osmotic Laxative End: 09-18-2020 take 17 g by mouth once daily as needed for constipation polyethylene glycol (GLYCOLAX) packet Take 17 g by mouth daily as needed for Constipation 0 09/18/2020 Discontinued (LIST CLEANUP) sennosides, group home 8.6 mg oral capsule (3 sources) End: 09-18-2020 Sennosides (SENNA) 8.6 MG CAPS Take by mouth 0 09/18/2020 Discontinued (LIST CLEANUP) sertraline 100 mg oral tablet (3 sources) Serotonin Reuptake Inhibitor End: 09-18-2020 take 1 tablet by mouth once daily sertraline (ZOLOFT) 100 MG tablet Take 100 mg by mouth daily 0 09/18/2020 Discontinued (LIST CLEANUP) sodium chloride 0.9 % SOLN 100 mL with meropenem 1 G SOLR 2 g (3 sources) End: 09-18-2020 sodium chloride 0.9 % SOLN 100 mL with meropenem 1 G SOLR 2 g Infuse 2 g intravenously every 8 hours 0 09/18/2020 Discontinued take 2 g intravenous route every eight hours, then take 1 g intravenous route, then take 2 g intravenous route sodium chloride 0.9 % SOLN 100 mL with meropenem 1 G SOLR 2 g Infuse 2 g intravenously every 8 hours 0 Active zinc sulfate 220 mg oral capsule (3 sources) End: 09-18-2020 take 1 capsule by mouth once daily zinc sulfate (ZINCATE) 220 MG capsule Take 220 mg by mouth daily 0 09/18/2020 Discontinued (LIST CLEANUP) Problems Active Problems Problem Classification Problem Date Documented Da te Episodic/Chronic Diabetes mellitus without complication (10 sources) Diabetes mellitus; Translations: [Type 2 diabetes mellitus without complications] Chronic Diabetes mellitus without complication (8 sources) Hyperglycemia; Translations: [Hyperglycemia, unspecified] 04-22-2021 Episodic Disorders of lipid metabolism (8 sources) Hyperlipidemia; Translations: [Hyperlipidemia, unspecified] 05-29-2021 Chronic Essential hypertension (9 sources) Hypertensive disorder; Translations: [Essential (primary) hypertension] Chronic Immunizations and screening for infectious disease (1 source) Viral screening status; Translations: [Encounter for screening for other viral diseases] Episodic Other aftercare (8 sources) Long-term current use of insulin; Translations: [MCFP (current) use of insulin] 05-08-2021 Episodic Other gastrointestinal disorders (2 sources) Colostomy present; Translations: [Colostomy status] Onset: 09-18-2020 Chronic Other non-traumatic joint disorders (6 sources) Pain in right shoulder; Translations: [Right shoulder pain] 08-08-2023 Episodic Other nutritional; endocrine; and metabolic disorders (8 sources) Hypophosphatemia; Translations: [Other disorders of phosphorus metabolism] 04-22-2021 Chronic Peripheral and visceral atherosclerosis (1 source) Peripheral vascular disease, unspecified; Translations: [Peripheral vascular disease, unspecified] Onset: 12-27-2024 Chronic Residual codes; unclassified (2 sources) History [...] fractures of pelvis with disruption of pelvic lummi; Translations: [Multiple fractures of pelvis with stable [...] Results Test Name Value Interpretation Reference Range Facility Absolute lymphocyte countOrd ered By: Miquel Palacio on 08-06-2023 Lymphocytes Auto (Unsp spec) [#/Vol] 2.23 10*3/uL 0.83-4.51 [facility] Automated lymphocyte count a s percentage of total leukocytesOrdered By: Miquel Palacio on 08-06-2023 Lymphocytes/100 WBC Auto (Unsp spec) 33.0 % 19-41 [facility] Basophil percentageOrdered B y: Miquel Palacio on 08-06-2023 Basophils/100 WBC (Bld) 0.6 % 0-1 [facility] Bilirubin [Mass/Vol] 0.50 mg/dL 0.20-1.00 [facility] Comment on above: For patients on eltr ombopag therapy, use of Dimension Dougherty TBIL is not recommended. Chloride [Moles/Vol] 105 mmol/L 98-107 [facility] Cholesterol [Mass/Vol] 164 mg/dL <200 [facility] Comment on above: <200 mg/dL Desirable 200-240 mg/dL Borderline >240 mg/dL High Risk Eosinophils/100 WBC (Bld) 2.4 % 0-5 [facility] Glucose [Mass/Vol] 366 mg/dL 74-106 [facility] Comment on above: Glucose result great er than or equal to 200 mg/dLsuggests DIABETES MELLITUS per A.D.A. criteria. Hemoglobin (Bld) [Mass/Vol] 17.1 g/dL 13.0-16.5 [facility] Monocytes/100 WBC (Bld) 7.8 % 0-10 [facility] Neutrophils (Bld) [#/Vol] 3.8 10*3/uL 2.0-7.7 [facility] Neutrophils/100 WBC (Bld) 55.6 % 47-70 [facility] Potassium [Moles/Vol] 4.1 mmol/L 3.5-5.1 [facility] Protein [Mass/Vol] 7.3 g/dL 6.4-8.2 [facility] Sodium [Moles/Vol] 135 mmol/L 136-145 [facility] Triglyceride [Mass/Vol] 244 mg/dL <199 [facility] Comment on above: The drugs N-Acetylcy steine and Metamizole may falsely depress this assay.Serum Triglycerides Reference Interval Normal <150 mg/dL Borderline high 150 - 199 mg/dL High 200 - 499 mg/dL Very High > or = 500 mg/dL WBC (Bld) [#/Vol] 6.8 10*3/uL 4.4-11.0 [facility] Determination of erythrocyte mean corpuscular volume (MCV)Ordered By: Miquel Palacio on 08-06-2023 MCV (RBC) [Entitic vol] 84.5 fL 80-94 [facility] Erythrocyte distribution wid th ratioOrdered By: Miquel Palacio on 08-06-2023 Erythrocyte distribution width (RBC) [Ratio] 13.2 % 11.6-14.6 [facility] Erythrocyte distribution wid th standard deviationOrdered By: Miquel Palacio on 08-06-2023 Erythrocyte distribution width (RBC) [Entitic vol] 41.1 fL 35.1-43.9 [facility] Hematocrit Auto (Bld) [Volum e fraction]Ordered By: Miquel Palacio on 08-06-2023 Hematocrit (Bld) [Volume fraction] 52.7 % 40-54 [facility] Immature granulocytes/100 WB C Auto (Bld)Ordered By: Miquel Palacio on 08-06-2023 Immature granulocytes/100 WBC (Bld) 0.600 % 0.0-0.9 [facility] Comment on above: IG% - Immature Granu locytes (promyelocytes, myelocytes and metamyelocytes) > 1% indicates that a LEFT SHIFT is Present. Laboratory - Chemistry and C hemistry - challengeOrdered By: Miquel Palacio on 08-06-2023 Albumin/Globulin [Mass ratio] 1.0 {ratio} 0.9-2.4 [facility] ALP [Catalytic activity/Vol] 67 U/L 45-117 [facility] ALT [Catalytic activity/Vol] 22 U/L 16-61 [facility] Cholesterol in HDL [Mass/Vol] 40 mg/dL >40 [facility] Comment on above: The drugs N-Acetylcy steine and Metamizole may falsely depress this assay. Reference Range HDL <40 mg/dL Low HDL Cholesterol HDL >or= 60 mg/dL High HDL Cholesterol Cholesterol in LDL [Mass/Vol] 75 mg/dL 0-130 [facility] CO2 [Moles/Vol] 23.0 mmol/L 21.0-32.0 [facility] Globulin (S) [Mass/Vol] 3.7 g/dL 2.2-4.2 [facility] Urea nitrogen/Creatinine [Mass ratio] 8.7 mg/mg 10-20 [facility] Laboratory - Hematology and Cell countsOrdered By: Miquel Palacio on 08-06-2023 MCH (RBC) [Entitic mass] 27.4 pg 27.0-32.0 [facility] MCHC (RBC) [Mass/Vol] 32.4 g/dL 32-36 [facility] Nucleated RBC/100 WBC (Bld) [Ratio] 0 % 0-5 [facility] Platelet mean volume (Bld) [Entitic vol] 11.1 fL 6.2-12.0 [facility] Platelets (Bld) [#/Vol] 224 10*3/uL 150-450 [facility] No Panel InformationOrdered By: Miquel Palacio on 08-06-2023 Estimated GFR (MDRD) Amer 94 mL/min >60 [facility] Comment on above: GFR Calc Estimated GFR (MDRD) Non-Af Amer 78 mL/min >60 [facility] Comment on above: Non- GFR Calc VLDL Cholesterol 49 mg/dL 5-40 [facility] RBC Auto (Bld) [#/Vol]Ordere d By: Miquel Palacio on 08-06-2023 RBC (Bld) [#/Vol] 6.24 10*6/uL 4.6-6.2 [facility] Serum or plasma calcium andre urement (mass/volume)Ordered By: Miquel Palacio on 08-06-2023 Calcium [Mass/Vol] 9.9 mg/dL 8.5-10.1 [facility] Serum or plasma creatinine m easurement (mass/volume)Ordered By: Miquel Palacio on 08-06-2023 Creatinine [Mass/Vol] 1.04 mg/dL 0.70-1.30 [facility] Comment on above: The validity of the calculated GFR & GFRAA in patients over 70 years has not been determined. Clinical correlation is essential. Serum or plasma thyroid stim ulating hormone (TSH) measurement (units/volume)Ordered By: Miquel Palacio on 08-06-2023 TSH Qn 0.93 uIU/mL 0.358-3.74 [facility] Serum or plasma urea nitroge n measurement (mass/volume)Ordered By: Miquel Palacio on 08-06-2023 Urea nitrogen [Mass/Vol] 9 mg/dL 7-18 [facility] Thin prep Papanicolaou smear with manual screeningOrdered By: Miquel Palacio on 08-06-2023 Thin prep Papanicolaou smear with manual screening 3.6 g/dL 3.2-5.0 [facility] Thin prep Papanicolaou smear with manual screening 14 U/L 15-37 [facility] Thin prep Papanicolaou smear with manual screening 7 5-15 [facility] Thin prep Papanicolaou smear with manual screening 64.5 mg/L NO RANGE EST. [facility] Whole blood hemoglobin A1c/t otal hemoglobin ratio (mass fraction)Ordered By: Miquel Palacio on 08-06-2023 HbA1c (Bld) [Mass fraction] 11.2 % 3.8-5.6 [facility] Comment on above: Normal < 5.7 % Predi abetic 5.7 - 6.4 % Diabetic >or= 6.5 % Please note range changes. Basophil percentageOrdered B y: Suzette Barrera on 08-05-2023 Bilirubin [Mass/Vol] 0.50 mg/dL 0.20-1.00 [facility] Comment on above: For patients on eltr ombopag therapy, use of Dimension Dougherty TBIL is not recommended. Chloride [Moles/Vol] 100 mmol/L 98-107 [facility] Glucose [Mass/Vol] 417 mg/dL 74-106 [facility] Comment on above: Glucose result great er than or equal to 200 mg/dLsuggests DIABETES MELLITUS per A.D.A. criteria. Potassium [Moles/Vol] 4.2 mmol/L 3.5-5.1 [facility] Protein [Mass/Vol] 7.7 g/dL 6.4-8.2 [facility] Sodium [Moles/Vol] 134 mmol/L 136-145 [facility] Laboratory - Chemistry and C hemistry - challengeOrdered By: Suzette Barrera on 08-05-2023 Albumin/Globulin [Mass ratio] 1.0 {ratio} 0.9-2.4 [facility] ALP [Catalytic activity/Vol] 68 U/L 45-117 [facility] ALT [Catalytic activity/Vol] 25 U/L 16-61 [facility] CO2 [Moles/Vol] 28.0 mmol/L 21.0-32.0 [facility] Globulin (S) [Mass/Vol] 3.8 g/dL 2.2-4.2 [facility] Urea nitrogen/Creatinine [Mass ratio] 8.1 mg/mg 10-20 [facility] No Panel InformationOrdered By: Suzette Barrera on 08-05-2023 Estimated GFR (MDRD) Amer 78 mL/min >60 [facility] Comment on above: GFR Calc Estimated GFR (MDRD) Non-Af Amer 64 mL/min >60 [facility] Comment on above: Non- GFR Calc Serum or plasma calcium andre urement (mass/volume)Ordered By: Suzette Barrera on 08-05-2023 Calcium [Mass/Vol] 10.0 mg/dL 8.5-10.1 [facility] Serum or plasma creatinine m easurement (mass/volume)Ordered By: Suzette Barrera on 08-05-2023 Creatinine [Mass/Vol] 1.23 mg/dL 0.70-1.30 [facility] Comment on above: The validity of the calculated GFR & GFRAA in patients over 70 years has not been determined. Clinical correlation is essential. Serum or plasma urea nitroge n measurement (mass/volume)Ordered By: Suzette Barrera on 08-05-2023 Urea nitrogen [Mass/Vol] 10 mg/dL 7-18 [facility] Thin prep Papanicolaou smear with manual screeningOrdered By: Suzette Barrera on 08-05-2023 Thin prep Papanicolaou smear with manual screening 3.9 g/dL 3.2-5.0 [facility] Thin prep Papanicolaou smear with manual screening 15 U/L 15-37 [facility] Thin prep Papanicolaou smear with manual screening 6 5-15 [facility] Absolute lymphocyte countOrd ered By: Miquel Palacio on 02-07-2023 Lymphocytes Auto (Unsp spec) [#/Vol] 2.69 10*3/uL 0.83-4.51 [facility] Basophil percentageOrdered B y: Miquel Palacio on 02-07-2023 Basophils/100 WBC (Bld) 0.5 % 0-1 [facility] Bilirubin [Mass/Vol] 0.40 mg/dL 0.20-1.00 [facility] Comment on above: For patients on eltr ombopag therapy, use of Dimension Dougherty TBIL is not recommended. Chloride [Moles/Vol] 101 mmol/L 98-107 [facility] Cholesterol [Mass/Vol] 220 mg/dL <200 [facility] Comment on above: <200 mg/dL Desirable 200-240 mg/dL Borderline >240 mg/dL High Risk Eosinophils/100 WBC (Bld) 1.8 % 0-5 [facility] Glucose [Mass/Vol] 425 mg/dL 74-106 [facility] Comment on above: Glucose result great er than or equal to 200 mg/dLsuggests DIABETES MELLITUS per A.D.A. criteria. Neutrophils (Bld) [#/Vol] 5.2 10*3/uL 2.0-7.7 [facility] Neutrophils/100 WBC (Bld) 58.5 % 47-70 [facility] Potassium [Moles/Vol] 3.9 mmol/L 3.5-5.1 [facility] Protein [Mass/Vol] 7.6 g/dL 6.4-8.2 [facility] Sodium [Moles/Vol] 131 mmol/L 136-145 [facility] Triglyceride [Mass/Vol] 458 mg/dL <199 [facility] Comment on above: The drugs N-Acetylcy steine and Metamizole may falsely depress this assay. TRIGLYCERIDE IS GREATER THAN 400 mg/dL. LDL RESULT IS INVALID AND WILL NOT BE REPORTED.Serum Triglycerides Reference Interval Normal <150 mg/dL Borderline high 150 - 199 mg/dL High 200 - 499 mg/dL Very High > or = 500 mg/dL WBC (Bld) [#/Vol] 8.8 10*3/uL 4.4-11.0 [facility] Blood erythrocytes count (nu mber/volume)Ordered By: Miquel Palacio on 02-07-2023 RBC (Bld) [#/Vol] 6.07 10*6/uL 4.6-6.2 [facility] Blood hemoglobin measurement (mass/volume)Ordered By: Miquel Palacio on 02-07-2023 Hemoglobin (Bld) [Mass/Vol] 17.1 g/dL 13.0-16.5 [facility] Blood lymphocytes/100 leukoc ytesOrdered By: Miquel Palacio on 02-07-2023 Lymphocytes/100 WBC (Bld) 30.6 % 19-41 [facility] Blood monocytes/100 leukocyt esOrdered By: Miquel Palacio on 02-07-2023 Monocytes/100 WBC (Bld) 7.8 % 0-10 [facility] Blood platelet mean volumeOr dered By: Miquel Palacio on 02-07-2023 Platelet mean volume (Bld) [Entitic vol] 11.4 fL 6.2-12.0 [facility] Determination of erythrocyte mean corpuscular volume (MCV)Ordered By: Miquel Palacio on 02-07-2023 MCV (RBC) [Entitic vol] 84.5 fL 80-94 [facility] Hematocrit Auto (Bld) [Volum e fraction]Ordered By: Miquel Palacio on 02-07-2023 Hematocrit (Bld) [Volume fraction] 51.3 % 40-54 [facility] Laboratory - Chemistry and C hemistry - challengeOrdered By: Miquel Palacio on 02-07-2023 ALP [Catalytic activity/Vol] 74 U/L 45-117 [facility] ALT [Catalytic activity/Vol] 29 U/L 16-61 [facility] CO2 [Moles/Vol] 22.0 mmol/L 21.0-32.0 [facility] Globulin (S) [Mass/Vol] 3.8 g/dL 2.2-4.2 [facility] Urea nitrogen/Creatinine [Mass ratio] 10.6 mg/mg 10-20 [facility] Laboratory - Hematology and Cell countsOrdered By: Miquel Palacio on 02-07-2023 Erythrocyte distribution width (RBC) [Entitic vol] 40.4 fL 35.1-43.9 [facility] Erythrocyte distribution width (RBC) [Ratio] 13.2 % 11.6-14.6 [facility] Immature granulocytes/100 WBC (Bld) 0.800 % 0.0-0.9 [facility] Comment on above: IG% - Immature Granu locytes (promyelocytes, myelocytes and metamyelocytes) > 1% indicates that a LEFT SHIFT is Present. MCH (RBC) [Entitic mass] 28.2 pg 27.0-32.0 [facility] Nucleated RBC/100 WBC (Bld) [Ratio] 0 % 0-5 [facility] MCHC Auto (RBC) [Mass/Vol]Or dered By: Miquel Palacio on 02-07-2023 MCHC (RBC) [Mass/Vol] 33.3 g/dL 32-36 [facility] No Panel InformationOrdered By: Miquel Palacio on 02-07-2023 Estimated GFR (MDRD) Amer 78 mL/min >60 [facility] Comment on above: GFR Calc Estimated GFR (MDRD) Non-Af Amer 64 mL/min >60 [facility] Comment on above: Non- GFR Calc Prostate Specific Antigen Screen 1.16 ng/mL 0.00-4.00 [facility] Comment on above: This test was perfor med using the TPSA assay method for the[facility] [employer] chemistry system. Values obtained with differentassay methods cannot be used interchangably.When changing PSA assays in the course of monitoring apatient, additional sequential testing should be carriedout to confirm baseline values. Thyroid Stimulating Hormone (TSH) 1.87 uIU/mL 0.358-3.74 [facility] Platelets bldOrdered By: Miquel Palacio on 02-07-2023 Platelets (Bld) [#/Vol] 204 10*3/uL 150-450 [facility] Serum or plasma albumin andre urement (mass/volume)Ordered By: Miquel Palacio on 02-07-2023 Albumin [Mass/Vol] 3.8 g/dL 3.2-5.0 [facility] Serum or plasma albumin/glob ulin mass ratioOrdered By: Miquel Palacio 02-07-2023 Albumin/Globulin [Mass ratio] 1.0 {ratio} 0.9-2.4 [facility] Serum or plasma calcium andre urement (mass/volume)Ordered By: Miquel Palacio on 02-07-2023 Calcium [Mass/Vol] 9.9 mg/dL 8.5-10.1 [facility] Serum or plasma cholesterol in HDL measurement (mass/volume)Ordered By: Miquel Palacio 02-07-2023 Cholesterol in HDL [Mass/Vol] 36 mg/dL >40 [facility] Comment on above: The drugs N-Acetylcy steine and Metamizole may falsely depress this assay. Reference Range HDL <40 mg/dL Low HDL Cholesterol HDL >or= 60 mg/dL High HDL Cholesterol Serum or plasma cholesterol in VLDL measurement (mass/volume)Ordered By: Miquel Palacio 02-07-2023 Cholesterol in VLDL [Mass/Vol] [facility] Comment on above: Test not performed Serum or plasma creatinine m easurement (mass/volume)Ordered By: Miquel Palacio 02-07-2023 Creatinine [Mass/Vol] 1.23 mg/dL 0.70-1.30 [facility] Comment on above: The validity of the calculated GFR & GFRAA in patients over 70 years has not been determined. Clinical correlation is essential. Serum or plasma low density lipoprotein (LDL) cholesterol measurement (mass/volume)Ordered By: Miquel Palacio on 02-07-2023 Cholesterol in LDL [Mass/Vol] [facility] Comment on above: Test not performed Serum or plasma urea nitroge n measurement (mass/volume)Ordered By: Miquel Palacio on 02-07-2023 Urea nitrogen [Mass/Vol] 13 mg/dL 7-18 [facility] Thin prep Papanicolaou smear with manual screeningOrdered By: Miquel Palacio on 02-07-2023 Thin prep Papanicolaou smear with manual screening 16 U/L 15-37 [facility] Thin prep Papanicolaou smear with manual screening 8 5-15 [facility] Whole blood hemoglobin A1c/t otal hemoglobin ratio (mass fraction)Ordered By: Miquel Palacio on 02-07-2023 HbA1c (Bld) [Mass fraction] 12.1 % 3.8-5.6 [facility] Comment on above: Normal < 5.7 % Predi abetic 5.7 - 6.4 % Diabetic >or= 6.5 % Please note range changes. Absolute lymphocyte countOrd ered By: Dr. Palacio on 08-01-2022 Lymphocytes Auto (Unsp spec) [#/Vol] 1.79 10*3/uL 0.83-4.51 [facility] Basophil percentageOrdered B y: Dr. Palacio on 08-01-2022 Basophils/100 WBC (Bld) 0.4 % 0-1 [facility] Bilirubin [Mass/Vol] 0.30 mg/dL 0.20-1.00 [facility] Comment on above: For patients on eltr ombopag therapy, use of Dimension Dougherty TBIL is not recommended. Chloride [Moles/Vol] 93 mmol/L 98-107 [facility] Eosinophils/100 WBC (Bld) 1.9 % 0-5 [facility] Glucose [Mass/Vol] 797 mg/dL 74-106 [facility] Comment on above: Critical Result(s) C alled at: 13:43:32 08/01/2022 by: Christiano Archer RN . Results read back by same.Glucose result greater than or equal to 200 mg/dLsuggests DIABETES MELLITUS per A.D.A. criteria. Neutrophils (Bld) [#/Vol] 5.9 10*3/uL 2.0-7.7 [facility] Neutrophils/100 WBC (Bld) 69.3 % 47-70 [facility] Potassium [Moles/Vol] 4.5 mmol/L 3.5-5.1 [facility] Protein [Mass/Vol] 7.2 g/dL 6.4-8.2 [facility] Sodium [Moles/Vol] 127 mmol/L 136-145 [facility] Testosterone [Mass/Vol] 305.02 ng/dL [facility] Comment on above: CENTRAL 90% REFERENC E RANGES MALE AGE <50 197.44 - 669.58 ng/dL MALE AGE > or = 50 187.72 - 684.19 ng/dL FEMALE AGE <50 8.38 - 35.01 ng/dL FEMALE AGE > or = 50 <7.00 - 35.92 ng/dL Effective as of 12/26/20 WBC (Bld) [#/Vol] 8.6 10*3/uL 4.4-11.0 [facility] Blood erythrocytes count (nu mber/volume)Ordered By: Dr. Palacio on 08-01-2022 RBC (Bld) [#/Vol] 6.32 10*6/uL 4.6-6.2 [facility] Blood hemoglobin measurement (mass/volume)Ordered By: Dr. Palacio on 08-01-2022 Hemoglobin (Bld) [Mass/Vol] 17.8 g/dL 13.0-16.5 [facility] Blood lymphocytes/100 leukoc ytesOrdered By: Dr. Palacio on 08-01-2022 Lymphocytes/100 WBC (Bld) 20.9 % 19-41 [facility] Blood monocytes/100 leukocyt esOrdered By: Dr. Palacio on 08-01-2022 Monocytes/100 WBC (Bld) 6.7 % 0-10 [facility] Blood platelet mean volumeOr dered By: Dr. Palacio on 08-01-2022 Platelet mean volume (Bld) [Entitic vol] 11.6 fL 6.2-12.0 [facility] Determination of erythrocyte mean corpuscular volume (MCV)Ordered By: Dr. Palacio on 08-01-2022 MCV (RBC) [Entitic vol] 85.6 fL 80-94 [facility] Hematocrit Auto (Bld) [Volum e fraction]Ordered By: Dr. Palacio on 08-01-2022 Hematocrit (Bld) [Volume fraction] 54.1 % 40-54 [facility] Laboratory - Chemistry and C hemistry - challengeOrdered By: Dr. Palacio on 08-01-2022 ALP [Catalytic activity/Vol] 74 U/L 45-117 [facility] ALT [Catalytic activity/Vol] 23 U/L 16-61 [facility] CO2 [Moles/Vol] 21.0 mmol/L 21.0-32.0 [facility] Globulin (S) [Mass/Vol] 3.5 g/dL 2.2-4.2 [facility] Urea nitrogen/Creatinine [Mass ratio] 16.8 mg/mg 10-20 [facility] Laboratory - Hematology and Cell countsOrdered By: Dr. Palacio on 08-01-2022 Erythrocyte distribution width (RBC) [Entitic vol] 40.8 fL 35.1-43.9 [facility] Erythrocyte distribution width (RBC) [Ratio] 13.1 % 11.6-14.6 [facility] Immature granulocytes/100 WBC (Bld) 0.800 % 0.0-0.9 [facility] Comment on above: IG% - Immature Granu locytes (promyelocytes, myelocytes and metamyelocytes) > 1% indicates that a LEFT SHIFT is Present. MCH (RBC) [Entitic mass] 28.2 pg 27.0-32.0 [facility] Nucleated RBC/100 WBC (Bld) [Ratio] 0 % 0-5 [facility] MCHC Auto (RBC) [Mass/Vol]Or dered By: Dr. Palacio on 08-01-2022 MCHC (RBC) [Mass/Vol] 32.9 g/dL 32-36 [facility] No Panel InformationOrdered By: Dr. Palacio on 08-01-2022 Estimated GFR (MDRD) Amer 66 mL/min >60 [facility] Comment on above: GFR Calc Estimated GFR (MDRD) Non-Af Amer 54 mL/min >60 [facility] Comment on above: Non- GFR Calc Thyroid Stimulating Hormone (TSH) 0.63 uIU/mL 0.358-3.74 [facility] Platelets bldOrdered By: Dr. Palacio on 08-01-2022 Platelets (Bld) [#/Vol] 210 10*3/uL 150-450 [facility] Serum or plasma albumin andre urement (mass/volume)Ordered By: Dr. Palacio on 08-01-2022 Albumin [Mass/Vol] 3.7 g/dL 3.2-5.0 [facility] Serum or plasma albumin/glob ulin mass ratioOrdered By: Dr. Palacio on 08-01-2022 Albumin/Globulin [Mass ratio] 1.1 {ratio} 0.9-2.4 [facility] Serum or plasma calcium andre urement (mass/volume)Ordered By: Dr. Palacio on 08-01-2022 Calcium [Mass/Vol] 9.7 mg/dL 8.5-10.1 [facility] Serum or plasma creatinine m easurement (mass/volume)Ordered By: Dr. Palacio on 08-01-2022 Creatinine [Mass/Vol] 1.43 mg/dL 0.70-1.30 [facility] Comment on above: The validity of the calculated GFR & GFRAA in patients over 70 years has not been determined. Clinical correlation is essential. Serum or plasma urea nitroge n measurement (mass/volume)Ordered By: Dr. Palacio on 08-01-2022 Urea nitrogen [Mass/Vol] 24 mg/dL 7-18 [facility] Thin prep Papanicolaou smear with manual screeningOrdered By: Dr. Palacio on 08-01-2022 Thin prep Papanicolaou smear with manual screening 11 U/L 15-37 [facility] Thin prep Papanicolaou smear with manual screening 13 5-15 [facility] Urine creatinine measurement (mass/volume)Ordered By: Dr. Palacio on 04-18-2022 Creatinine (U) [Mass/Vol] 15.50 mg/dL NO RANGE EST. [facility] Urine protein measurement (m ass/volume)Ordered By: Dr. Palacio on 04-18-2022 Protein (U) [Mass/Vol] 6.4 mg/dL 0.0-11.8 [facility] Urine protein/creatinine mas s ratioOrdered By: Dr. Palacio on 04-18-2022 Protein/Creatinine (U) [Mass ratio] 413 mg/g CRE 0-200 [facility] Absolute lymphocyte countOrd ered By: Dr. Palacio on 04-08-2022 Lymphocytes Auto (Unsp spec) [#/Vol] 2.46 10*3/uL 0.83-4.51 [facility] Basophil percentageOrdered B y: Dr. Palacio on 04-08-2022 Basophils/100 WBC (Bld) 0.3 % 0-1 [facility] Bilirubin [Mass/Vol] 0.50 mg/dL 0.20-1.00 [facility] Comment on above: For patients on eltr ombopag therapy, use of Dimension Dougherty TBIL is not recommended. Chloride [Moles/Vol] 97 mmol/L 98-107 [facility] Eosinophils/100 WBC (Bld) 1.0 % 0-5 [facility] Glucose [Mass/Vol] 628 mg/dL 74-106 [facility] Comment on above: Glucose result great er than or equal to 200 mg/dLsuggests DIABETES MELLITUS per A.D.A. criteria. Neutrophils (Bld) [#/Vol] 8.7 10*3/uL 2.0-7.7 [facility] Neutrophils/100 WBC (Bld) 70.8 % 47-70 [facility] Potassium [Moles/Vol] 4.3 mmol/L 3.5-5.1 [facility] Comment on above: Moderate Hemolysis, Result may be falsely increased. Protein [Mass/Vol] 8.0 g/dL 6.4-8.2 [facility] Sodium [Moles/Vol] 127 mmol/L 136-145 [facility] WBC (Bld) [#/Vol] 12.3 10*3/uL 4.4-11.0 [facility] Blood erythrocytes count (nu mber/volume)Ordered By: Dr. Palacio on 04-08-2022 RBC (Bld) [#/Vol] 6.23 10*6/uL 4.6-6.2 [facility] Blood hemoglobin measurement (mass/volume)Ordered By: Dr. Palacio on 04-08-2022 Hemoglobin (Bld) [Mass/Vol] 17.7 g/dL 13.0-16.5 [facility] Blood lymphocytes/100 leukoc ytesOrdered By: Dr. Palacio on 04-08-2022 Lymphocytes/100 WBC (Bld) 20.1 % 19-41 [facility] Blood monocytes/100 leukocyt esOrdered By: Dr. Palacio on 04-08-2022 Monocytes/100 WBC (Bld) 7.3 % 0-10 [facility] Blood platelet mean volumeOr dered By: Dr. Palacio on 04-08-2022 Platelet mean volume (Bld) [Entitic vol] 12.4 fL 6.2-12.0 [facility] Determination of erythrocyte mean corpuscular volume (MCV)Ordered By: Dr. Palacio on 04-08-2022 MCV (RBC) [Entitic vol] 86.8 fL 80-94 [facility] Hematocrit Auto (Bld) [Volum e fraction]Ordered By: Dr. Palacio on 04-08-2022 Hematocrit (Bld) [Volume fraction] 54.1 % 40-54 [facility] Laboratory - Chemistry and C hemistry - challengeOrdered By: Dr. Palacio on 04-08-2022 ALP [Catalytic activity/Vol] 82 U/L 45-117 [facility] ALT [Catalytic activity/Vol] 50 U/L 16-61 [facility] CO2 [Moles/Vol] 18.0 mmol/L 21.0-32.0 [facility] Globulin (S) [Mass/Vol] 4.3 g/dL 2.2-4.2 [facility] Urea nitrogen/Creatinine [Mass ratio] 12.0 mg/mg 10-20 [facility] Laboratory - Hematology and Cell countsOrdered By: Dr. Palacio on 04-08-2022 Erythrocyte distribution width (RBC) [Entitic vol] 42.3 fL 35.1-43.9 [facility] Erythrocyte distribution width (RBC) [Ratio] 13.4 % 11.6-14.6 [facility] Immature granulocytes/100 WBC (Bld) 0.500 % 0.0-0.9 [facility] Comment on above: IG% - Immature Granu locytes (promyelocytes, myelocytes and metamyelocytes) > 1% indicates that a LEFT SHIFT is Present. MCH (RBC) [Entitic mass] 28.4 pg 27.0-32.0 [facility] Nucleated RBC/100 [facility]Bld) [[facility]] 0 [facility] [Mass/Vol]Or dered By: Dr. Palacio on 04-08-2022 MCHC (RBC) [Mass/Vol] 32.7 g/dL 32-36 [facility] No Panel InformationOrdered By: Dr. Palacio on 04-08-2022 Estimated GFR (MDRD) Amer 62 mL/min >60 [facility] Comment on above: GFR Calc Estimated GFR (MDRD) Non-Af Amer 51 mL/min >60 [facility] Comment on above: Non- GFR Calc Thyroid Stimulating Hormone (TSH) 1.50 uIU/mL 0.358-3.74 [facility] Platelets bldOrdered By: Dr. Palacio on 04-08-2022 Platelets (Bld) [#/Vol] 225 10*3/uL 150-450 [facility] Serum or plasma albumin andre urement (mass/volume)Ordered By: Dr. Palacio on 04-08-2022 Albumin [Mass/Vol] 3.7 g/dL 3.2-5.0 [facility] Serum or plasma albumin/glob ulin mass ratioOrdered By: Dr. Palacio on 04-08-2022 Albumin/Globulin [Mass ratio] 0.9 {ratio} 0.9-2.4 [facility] Serum or plasma calcium andre urement (mass/volume)Ordered By: Dr. Palacio on 04-08-2022 Calcium [Mass/Vol] 9.4 mg/dL 8.5-10.1 [facility] Serum or plasma creatinine m easurement (mass/volume)Ordered By: Dr. Palacio on 04-08-2022 Creatinine [Mass/Vol] 1.50 mg/dL 0.70-1.30 [facility] Comment on above: The validity of the calculated GFR & GFRAA in patients over 70 years has not been determined. Clinical correlation is essential. Serum or plasma urea nitroge n measurement (mass/volume)Ordered By: Dr. Palacio on 04-08-2022 Urea nitrogen [Mass/Vol] 18 mg/dL 7-18 [facility] Thin prep Papanicolaou smear with manual screeningOrdered By: Dr. Palacio on 04-08-2022 Thin prep Papanicolaou smear with manual screening 30 U/L 15-37 [facility] Comment on above: Moderate Hemolysis, Result may be falsely increased. Thin prep Papanicolaou smear with manual screening 12 5-15 [facility] [facility] EMERGENCY REPORTon 2 EMERGENCY REPORT [facility] EMERGENCY ROOM REPORT NAME ACCOUNT SEX AGE ADMIT DISCHARGE PT MED. RECORD# NUMBER DATE DATE TYPE KAYLA [id number] Juan 56 11/18/21 11/18/21 Yaz Slaughter [id number] ROOM: ER DATE OF : 1965 DICTATING PHYSICIAN: Bang Medina HISTORY OF PRESENT ILLNESS: This is a 56-year-old male who presents with concern for buttock pain and left stump pain after a fall last night. He states that he tripped while trying to use his crutches to get off of his boat. He fell approximately 2 feet and landed directly on his tailbone. He states he has a sharp pain. It is worse with movement. He denies any numbness or tingling. He states he may have struck his head but had no loss of consciousness. The patient has had no headache or vision changes. The patient is not on anticoagulation. PAST MEDICAL HISTORY: None. PAST SURGICAL HISTORY: Orthopedic secondary to traumatic injury. SOCIAL HISTORY: The patient is a current smoker. He denies any drug or alcohol abuse. REVIEW OF SYSTEMS: Ten systems were reviewed and otherwise negative unless stated above. PHYSICAL EXAMINATION: GENERAL: The patient appears well and nontoxic. VITAL SIGNS: Vital signs are within normal limits. HEENT: Head is normocephalic. NECK: Trachea is midline. No tenderness to palpation of the cervical midline. LUNGS: Lungs are clear to auscultation. HEART: S1 and S2 appreciated without murmur. MUSCULOSKELETAL: The patient has complete disarticulation of the left leg. He has tenderness to palpation along the posterior stump and into the coccygeal and lower sacral area. NEUROLOGIC: Sensation is intact. SKIN: Clear. PSYCHIATRIC: Mood and affect are normal. DIAGNOSTIC DATA: X-ray of the pelvis shows no acute fracture. Sacral x-ray shows likely a coccygeal fracture. EMERGENCY DEPARTMENT COURSE AND TREATMENT: The patient appears well and nontoxic. The patient was treated with morphine with good reduction of his pain. We will give him Percocet at home. He was advised on rest and ice and try to relieve pressure on his coccyx. He was asked to follow up with his orthopedic surgeon, Dr. Eron Saenz, in [place]. He was asked to return for new or worsening symptoms. The patient was agreeable and discharged home in stable condition. Page 1 of 2 [facility] Emergency Room Report CHUCK GARZA : 1965 DIAGNOSES: 1. Coccygeal fracture. 2. Fall. Dictated By: Bang Medina DO 11/18/21 16:04 JOB #: [id number] Transcribed By: desean 11/19/21 15:22 Electronically signed by: E-SIGN: Bang Medina D.O. 11/21/21 10:32 Page 2 of 2 CHUCK GARZA Emergency Room Report Normal [facility] PELVIS 1 or 2 VIEWSon 2021 PELVIS 1 or 2 VIEWS [place] [address] Patient: CHUCK GARZA. Phone#: : 1965 Age: 56 Gender: M Pt. Type: ER Account: [id number] Location: [facility] Ordering: BANG MEDINA Exam Date: 11/18/2021/15:20 Family Phys: Charge Code: [id number] Physician: Morrill Order #: [id number] DLP Dose#: PROCEDURE: X-RAY PELVIS AP COMPARISON: None. INDICATIONS: Pain. 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 Degenerative changes of the lower lumbar spine and right hip. No appreciable acute osseous abnormality. SOFT TISSUES: Negative. No visible soft tissue swelling. EFFUSION: None visible. OTHER: Surgical clips seen in the soft tissues at the left hip. CONCLUSION: 1. No acute osseous abnormality 2. 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 3. Degenerative changes of the spine and right hip. Dictated by: Blossom Rea MD on 11/18/2021 at 22:24 Approved by: Blossom Rea MD on 11/18/2021 at 22:25 Normal [facility] SACRUM AND COCCYXon 06-19-20 22 SACRUM AND COCCYX [facility] [address], [place] [address] Patient: CHUCK GARZA Phone#: : 1965 Age: 56 Gender: M Pt. Type: ER Account: [id number] Location: [facility] Ordering: BANG MEDINA Exam Date: 11/18/2021/15:28 Family Phys: Charge Code: [id number] Physician: Morrill Order #: [id number] DLP Dose#: PROCEDURE: X-RAY SACRUM AND COCCYX MIN 2 VIEWS COMPARISON: [facility], CT, ABDOMEN/PELVIS W CON, 04/26/2015, 11:08. INDICATIONS: Pain. FINDINGS: BONES: Degenerative changes of the lower lumbar spine. Right hip joint space loss and spurring of the superior acetabular rim. Chronic deformity of the left hip extending from the iliac crest to the pubic rami. Anterior angulation of the coccyx, appears be sequela of remote trauma DISC SPACES: Disc height loss at L3-4, and L4-5. PARASPINOUS: Negative. No paraspinous abnormality is seen. OTHER: There are phleboliths in the pelvis. Surgical clips are seen in the pelvis. Inferior margin of IVC filter present. Atherosclerotic calcifications of the aorta are present. CONCLUSION: 1. Suspected remote injury of the coccyx with anterior angulation. Correlate with point tenderness and trauma history 2. Degenerative changes of the spine 3. Chronic deformity of the left hemipelvis 4. Degenerative changes of the right hip Dictated by: Blossom Rea MD on 11/18/2021 at 22:20 Approved by: Blossom Rea MD on 11/18/2021 at 22:24 Normal [facility] Absolute lymphocyte counton 11-05-2021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 PSCB Transcribe Date/Time: Dec 18 2020 1:24P Dictated by : YUMIKO DIALLO MD This examination was interpreted and the report reviewed and electronically signed by: YUMIKO DIALLO MD on Dec 18 2020 1:26PM EST [id number] Normal [facility] CNOVon 12-14-2020 CNOV Office Visit (PAINMN ) CHUCK GARZA ([id number]) 1965 M Date Time Provider Department 12/14/20 8:30 AM CRISTIAN KEARNEY PAINMN During your visit today, we recorded the following information about you: Temperature Pulse Blood pressure Weight 96.7 degrees 106/minute 99/61 92.1 kg Height 1.803 m Cristian Kearney MD, PhD 12/28/2020 5:30 AM Signed Referring Physician: SELF Chief Complaint: left leg amputation pain SUBJECTIVE: Chuck Garza presents to [facility] for the evaluation [...] Drug use: Not Currently Types: Amphetamines Comment: [id number] FAMILY HISTORY Problem Relation Age of Onset [...] affect appropriate. Skin: Skin color, texture, turgor (more content not included)... Normal [facility] Glucose,Bedsideon 09-23-2020 Glucose [Mass/Vol] 178 mg/dL High 70-100 [employer] Comment on above: Result Comment: Test performed by glucose meter. Results may be 10%-15% lower than serum/plasma values. (CLIA ID [id number]) Performed By: #### B GLU #### [employer] [address] [place] [phone] POCT GlucoseOrdered By: Kaz weldon Ma on 09-23-2020 Glucose [Mass/Vol] 178 mg/dL High 70 - 100 mg/dL [employer] Work Phone: Comment on above: Test performed by gl ucose meter. Results may be 10%-15% lower than serum/plasma values. (CLIA ID [id number]) Interpretation and review of laboratory results Abnormal [facility] Work Phone: Test Performed by [facility], [address] [place] [address] [facility] Work Phone: Basic Metabolic Panelon 04-2 Anion gap [Moles/Vol] 8 mmol/L Normal 3-13 [facility] Comment on above: Performed By: #### B MP3M, HEMDF #### [place] [address] [place] [address] Calcium [Mass/Vol] 10.3 mg/dL Normal 8.4-10.4 [facility] Comment on above: Performed By: #### B MP3M, HEMDF #### [place] [address] [place] [address] CO2 [Moles/Vol] 26 mmol/L Normal 22-30 [facility] Comment on above: Performed By: #### B MP3M, HEMDF #### [place] [address] [place] [address] Glucose [Mass/Vol] 145 mg/dL High 70-100 [facility] Comment on above: Performed By: #### B MP3M, HEMDF #### [place] [address] [place] [address] Urea nitrogen [Mass/Vol] 12 mg/dL Normal 7-20 [facility] Comment on above: Performed By: #### B MP3M, HEMDF #### [place] [address] [place] [address] Creatinine [Mass/Vol] 0.78 mg/dL Normal 0.52-1.25 [facility] Comment on above: Performed By: #### B MP3M, HEMDF #### [place] [address] [place] [address] eGFR OTHER > 90.0 Normal >60 [facility] Comment on above: Result Comment: KDIG O guidelines provide the following GFR categories: Stage GFR(ml/min/1.73 m2) Terms G1 >=90 Normal or high G2 60-89 Mildly decreased* G3a 45-59 Mildly to moderately decreased G3b 30-44 Moderately to severely decreased G4 15-29 Severely decreased G5 <15 Kidney failure *Relative to young adult level. In the absence of evidence of kidney damage, neither GFR category G1 nor G2 fulfill the criteria for CKD. The CKD-EPI equation is validated in individuals 18 years of age and older. Currently the best equation for estimating glomerular filtration rate (GFR) from serum creatinine in children is the Bedside Adair equation. It is less accurate in patients with extremes of muscle mass, restriction of dietary protein, ingestion of creatine, extra-renal metabolism of creatinine, or treatment with medications that affect renal tubular creatinine secretion. Performed By: #### B MP3M, HEMDF #### [address] GFR/1.73 sq M.predicted among blacks MDRD (S/P/Bld) [Vol rate/Area] mL/min/{1.73_m2} Normal >60 [facility] Comment on above: Performed By: #### Talha MP3M, HEMDF #### [place] [address] [place], [place] Chloride [Moles/Vol] 104 mmol/L Normal 98-107 [facility] Comment on above: Performed By: #### B MP3M, HEMDF #### [address] Potassium [Moles/Vol] 4.5 mmol/L Normal 3.5-5.1 [facility] Comment on above: Performed By: #### B MP3M, HEMDF #### [address] Sodium [Moles/Vol] 137 mmol/L Normal 135-145 [facility] Comment on above: Performed By: #### B MP3M, HEMDF #### [address] Basic Metabolic Panel w/ Ref james to MGOrdered By: Jeff Michael on 09-22-2020 Anion gap [Moles/Vol] 8 mmol/L 3 - 13 mmol/L [facility] Work Phone: Calcium [Mass/Vol] 10.3 mg/dL 8.4 - 10. 4 mg/dL [facility] Work Phone: [phone] Chloride [Moles/Vol] 104 mmol/L 98 - 10 7 mmol/L [facility] Work Phone: [phone] CO2 [Moles/Vol] 26 mmol/L 22 - 30 mmol/L [facility] Work Phone: [phone] Creatinine [Mass/Vol] 0.78 mg/dL 0.52 - 1.25 mg/dL [facility] Work Phone: [phone] EGFR IF NonAfrican Beninese >90.0 >60 mL/min [facility] Work Phone: [phone] Comment on above: KDIGO guidelines pro vide the following GFR categories: Stage GFR(ml/min/1.73 m2) Terms G1 >=90 Normal or high G2 60-89 Mildly decreased* G3a 45-59 Mildly to moderately decreased G3b 30-44 Moderately to severely decreased G4 15-29 Severely decreased G5 <15 Kidney failure *Relative to young adult level. In the absence of evidence of kidney damage, neither GFR category G1 nor G2 fulfill the criteria for CKD. The CKD-EPI equation is validated in individuals 18 years of age and older. Currently the best equation for estimating glomerular filtration rate (GFR) from serum creatinine in children is the Bedside Adair equation. It is less accurate in patients with extremes of muscle mass, restriction of dietary protein, ingestion of creatine, extra-renal metabolism of creatinine, or treatment with medications that affect renal tubular creatinine secretion. GFR/1.73 sq M.predicted among blacks MDRD (S/P/Bld) [Vol rate/Area] mL/min/{1.73_m2} >60 mL/min [facility] Work Phone: [phone] Glucose [Mass/Vol] 145 mg/dL High 70 - 100 mg/dL [facility] Work Phone: [phone] Interpretation and review of laboratory results Abnormal [facility] Work Phone: [phone] Potassium [Moles/Vol] 4.5 mmol/L 3.5 - 5.1 mmol/L [facility] Work Phone: [phone] Sodium [Moles/Vol] 137 mmol/L 135 - 145 mmol/L [facility] Work Phone: [phone] Urea nitrogen (BldV) [Mass/Vol] 12 mg/dL 7 - 20 mg/dL [facility] Work Phone: Test Performed by [facility], [address] [place] [address] [facility] Work Phone: CBC auto differentialOrdered By: eJff Michael on 09-22-2020 Absolute Baso # 0.0 10*3/uL 0.0 - 0.2 10*3/uL [facility] Work Phone: Absolute Neut # 6.1 10*3/uL 1.8 - 7.0 10*3/uL [facility] Work Phone: Basophils/100 WBC (Bld) 0.3 % 0.0 - 2.0 % [facility] Work Phone: Eosinophils (Bld) [#/Vol] 0.1 10*3/uL 0.0 - 0.5 10*3/uL [facility] Work Phone: Eosinophils/100 WBC (Bld) 1.6 % 1.0 - 6.0 % [facility] Work Phone: Granulocytes/100 WBC (Bld) 69.9 % 40.0 - 80.0 % [facility] Work Phone: Hematocrit (Bld) [Volume fraction] 49.5 % 40.0 - 52.0 % [facility] Work Phone: Hemoglobin.gastrointest inal spec 1 Ql (Stl) 16.2 g/dL 13.0 - 18.0 g/dL [facility] Work Phone: Interpretation and review of laboratory results Abnormal [facility] Work Phone: Lymphocytes (Bld) [#/Vol] 1.7 10*3/uL 1.0 - 4.3 10*3/uL [facility] Work Phone: Lymphocytes/100 WBC (Bld) 20.2 % 20.0 - 40.0 % [facility] Work Phone: MCH (RBC) [Entitic mass] 28.9 pg 26.0 - 34.0 pg [facility] Work Phone: 1 MCHC (RBC) [Mass/Vol] 32.8 % 32.0 - 36.0 % [employer] [facility] Work Phone: 1 MCV (RBC) [Entitic vol] 88.1 fL 80.0 - 98.0 fL [facility] Work Phone: 1 Monocytes (Bld) [#/Vol] 0.7 10*3/uL 0.0 - 0.8 10*3/uL [facility] Work Phone: 1 Monocytes/100 WBC (Bld) 8.0 % 2.0 - 10.0 % [facility] Work Phone: 1 Platelet distribution width (Bld) [Ratio] 14.8 % High 11.5 - 14.5 % [employer] Phone: 1 Platelet mean volume (Bld) [Entitic vol] 9.5 fL 7.4 - 10.4 fL [facility] Work Phone: Platelets (Bld) [#/Vol] 194 10*3/uL 140 - 440 10*3/uL [facility] Work Phone: 1 RBC (Bld) [#/Vol] 5.62 10*6/uL 4.40 - 5.9 0 10*6/uL [facility] Work Phone: 1 WBC (Bld) [#/Vol] 8.7 10*3/uL 3.6 - 10.7 10*3/uL [facility] Work Phone: 1 Test Performed by [facility], [address] [place] [address] [facility] Work Phone: [phone] Glucose,Bedsideon 09-22-2020 Glucose [Mass/Vol] 207 mg/dL High 70-100 [facility] [employer] [facility] Comment on above: Result Comment: Test performed by glucose meter. Results may be 10%-15% lower than serum/plasma values. (CLIA ID [id number]) Performed By: #### B GLU #### [facility] [address] [place] [phone] Glucose [Mass/Vol] 170 mg/dL High 70-100 [facility] Comment on above: Result Comment: Test performed by glucose meter. Results may be 10%-15% lower than serum/plasma values. (CLIA ID [id number]) Performed By: #### B GLU #### [place] [address] [address] [place], [place] Glucose [Mass/Vol] 154 mg/dL High 70-100 [facility] Comment on above: Result Comment: Test performed by glucose meter. Results may be 10%-15% lower than serum/plasma values. (CLIA ID [id number]) Performed By: #### B GLU #### [place] [address] [address] [place], [place] Glucose [Mass/Vol] 148 mg/dL High 70-100 [facility] Comment on above: Result Comment: Test performed by glucose meter. Results may be 10%-15% lower than serum/plasma values. (CLIA ID [id number]) Performed By: #### B GLU #### [place] [address] [address] [place], [place] Hemogram w/ Autodiffon 09-22 Abs Baso Cnt 0.0 10*3/uL Normal 0.0-0.2 [facility] Comment on above: Performed By: #### B MP3M, HEMDF #### [place] [address] [address] [place], [place] Abs Neutrophile Cnt 6.1 10*3/uL Normal 1.8-7.0 [facility] Comment on above: Performed By: #### B MP3M, HEMDF #### [place] [address] [address] [place], [place] Basophils/100 WBC (Bld) 0.3 % Normal 0.0-2.0 [facility] Comment on above: Performed By: #### B MP3M, HEMDF #### [place] [address] [address] [place] Eosinophils (Bld) [#/Vol] 0.1 10*3/uL Normal 0.0-0.5 [facility] Comment on above: Performed By: #### B MP3M, HEMDF #### [facility] [address] [place], [place] Eosinophils/100 WBC (Bld) 1.6 % Normal 1.0-6.0 [facility] Comment on above: Performed By: #### B MP3M, HEMDF #### [facility] [address] [place], [place] Erythrocyte distribution width (RBC) [Ratio] 14.8 % High 11.5-14.5 [facility] Comment on above: Performed By: #### B MP3M, HEMDF #### [place] [address] [address] [place], [place] Granulocytes/100 WBC (Bld) 69.9 % Normal 40.0-80.0 [facility] Comment on above: Performed By: #### B MP3M, HEMDF #### [place] [address] [address] [place], [place] Hematocrit (Bld) [Volume fraction] 49.5 % Normal 40.0-52.0 [facility] Comment on above: Performed By: #### B MP3M, HEMDF #### [place] [address] [address] [place], [place] Hemoglobin (Bld) [Mass/Vol] 16.2 g/dL Normal 13.0-18.0 [facility] Comment on above: Performed By: #### B MP3M, HEMDF #### [place] [address] [address] [place], [place] Lymphocytes (Bld) [#/Vol] 1.7 10*3/uL Normal 1.0-4.3 [facility] Comment on above: Performed By: #### B MP3M, HEMDF #### [place] [address] [address] [place], [place] Lymphocytes/100 WBC (Bld) 20.2 % Normal 20.0-40.0 [facility] Comment on above: Performed By: #### B MP3M, HEMDF #### [place] [address] [address] [place], [place] MCH (RBC) [Entitic mass] 28.9 pg Normal 26.0-34.0 [facility] Comment on above: Performed By: #### B MP3M, HEMDF #### [place] [address] [address] [place], [place] MCHC 32.8 % Normal 32.0-36.0 [facility] Comment on above: Performed By: #### B MP3M, HEMDF #### [place] [address] [address] [place], [place] MCV (RBC) [Entitic vol] 88.1 fL Normal 80.0-98.0 [facility] Comment on above: Performed By: #### B MP3M, HEMDF #### [place] [address] [address] [place], [place] Monocytes (Bld) [#/Vol] 0.7 10*3/uL Normal 0.0-0.8 [facility] Comment on above: Performed By: #### B MP3M, HEMDF #### [place] [address] [address] [place], [place] Monocytes/100 WBC (Bld) 8.0 % Normal 2.0-10.0 [facility] Comment on above: Performed By: #### B MP3M, HEMDF #### [place] [address] [address] [place], [place] Platelet mean volume (Bld) [Entitic vol] 9.5 fL Normal 7.4-10.4 [facility] Comment on above: Performed By: #### B MP3M, HEMDF #### [place] [address] [address] [place], [place] Platelets (Bld) [#/Vol] 194 10*3/uL Normal 140-440 [facility] Comment on above: Performed By: #### B MP3M, HEMDF #### [place] [address] [address] [place], [place] RBC (Bld) [#/Vol] 5.62 10*6/uL Normal 4.40-5.90 [facility] Comment on above: Performed By: #### B MP3M, HEMDF #### [place] [address] [place] [address] WBC (Bld) [#/Vol] 8.7 10*3/uL Normal 3.6-10.7 [facility] Comment on above: Performed By: #### B MP3M, HEMDF #### [facility] [employer] [facility] [address] [place] [address] POCT GlucoseOrdered By: Kaz weldon Ma on 09-22-2020 Glucose [Mass/Vol] 207 mg/dL High 70 - 100 mg/dL [employer] [facility] Work Phone: [phone] Comment on above: Test performed by gl ucose meter. Results may be 10%-15% lower than serum/plasma values. (CLIA ID [id number]) Interpretation and review of laboratory results Abnormal [employer] [facility] Work Phone: [phone] Test Performed by [employer] [facility], [address] [place] [address] [facility] Work Phone: [phone] Glucose [Mass/Vol] 170 mg/dL High 70 - 100 mg/dL [facility] Work Phone: [phone] Comment on above: Test performed by gl ucose meter. Results may be 10%-15% lower than serum/plasma values. (CLIA ID [id number]) Interpretation and review of laboratory results Abnormal [employer] [facility] Work Phone: [phone] Test Performed by [facility], [address] [place] [address] [facility] Work Phone: [phone] Glucose [Mass/Vol] 154 mg/dL High 70 - 100 mg/dL [facility] Work Phone: [phone] Comment on above: Test performed by gl ucose meter. Results may be 10%-15% lower than serum/plasma values. (CLIA ID [id number]) Interpretation and review of laboratory results Abnormal [employer] [facility] Work Phone: [phone] Test Performed by [facility], [address] [place] [address] [facility] Work Phone: 1 Glucose [Mass/Vol] 148 mg/dL High 70 - 100 mg/dL [facility] Work Phone: [phone] Comment on above: Test performed by gl ucose meter. Results may be 10%-15% lower than serum/plasma values. (CLIA ID [id number]) Interpretation and review of laboratory results Abnormal [facility] Work Phone: Test Performed by [facility], [address] [place] [address] [facility] Work Phone: Basic Metabolic Panelon 04-2 Calcium [Mass/Vol] 9.6 mg/dL Normal 8.4-10.4 [facility] Comment on above: Performed By: #### B GLU #### [address] [place] [address] Glucose [Mass/Vol] 142 mg/dL High 70-100 [facility] Comment on above: Performed By: #### B GLU #### [address] [place] [address] Urea nitrogen [Mass/Vol] 10 mg/dL Normal 7-20 [facility] Comment on above: Performed By: #### B GLU #### [address] [place] [address] Anion gap [Moles/Vol] 8 mmol/L Normal 3-13 [facility] Comment on above: Performed By: #### B GLU #### [address] [place] [address] CO2 [Moles/Vol] 22 mmol/L Normal 22-30 [facility] Comment on above: Performed By: #### B GLU #### [address] [place] [address] Creatinine [Mass/Vol] 0.74 mg/dL Normal 0.52-1.25 [facility] Comment on above: Performed By: #### B GLU #### [address] [place] [address] eGFR OTHER > 90.0 Normal >60 [facility] Comment on above: Result Comment: KDIG O guidelines provide the following GFR categories: Stage GFR(ml/min/1.73 m2) Terms G1 >=90 Normal or high G2 60-89 Mildly decreased* G3a 45-59 Mildly to moderately decreased G3b 30-44 Moderately to severely decreased G4 15-29 Severely decreased G5 <15 Kidney failure *Relative to young adult level. In the absence of evidence of kidney damage, neither GFR category G1 nor G2 fulfill the criteria for CKD. The CKD-EPI equation is validated in individuals 18 years of age and older. Currently the best equation for estimating glomerular filtration rate (GFR) from serum creatinine in children is the Bedside Adair equation. It is less accurate in patients with extremes of muscle mass, restriction of dietary protein, ingestion of creatine, extra-renal metabolism of creatinine, or treatment with medications that affect renal tubular creatinine secretion. Performed By: #### B GLU #### [address] GFR/1.73 sq M.predicted among blacks MDRD (S/P/Bld) [Vol rate/Area] mL/min/{1.73_m2} Normal >60 [facility] Comment on above: Performed By: #### B GLU #### [address] Potassium [Moles/Vol] 4.4 mmol/L Normal 3.5-5.1 [facility] Comment on above: Performed By: #### B GLU #### [address] Chloride [Moles/Vol] 106 mmol/L Normal 98-107 [facility] Comment on above: Performed By: #### B GLU #### [address] [address] [place], [place] Sodium [Moles/Vol] 136 mmol/L Normal 135-145 [facility] Comment on above: Performed By: #### B GLU #### [address] Basic Metabolic Panel w/ Ref james to MGOrdered By: Jeff Michael on 09-21-2020 Anion gap [Moles/Vol] 8 mmol/L 3 - 13 mmol/L [facility] Work Phone: Calcium [Mass/Vol] 9.6 mg/dL 8.4 - 10. 4 mg/dL [facility] Work Phone: Chloride [Moles/Vol] 106 mmol/L 98 - 10 7 mmol/L [facility] Work Phone: [phone] CO2 [Moles/Vol] 22 mmol/L 22 - 30 mmol/L [facility] Work Phone: [phone] Creatinine [Mass/Vol] 0.74 mg/dL 0.52 - 1.25 mg/dL [facility] Work Phone: [phone] IF NonAfrican Beninese >90.0 >60 mL/min [facility] Work Phone: [phone] Comment on above: KDIGO guidelines pro vide the following GFR categories: Stage GFR(ml/min/1.73 m2) Terms G1 >=90 Normal or high G2 60-89 Mildly decreased* G3a 45-59 Mildly to moderately decreased G3b 30-44 Moderately to severely decreased G4 15-29 Severely decreased G5 <15 Kidney failure *Relative to young adult level. In the absence of evidence of kidney damage, neither GFR category G1 nor G2 fulfill the criteria for CKD. The CKD-EPI equation is validated in individuals 18 years of age and older. Currently the best equation for estimating glomerular filtration rate (GFR) from serum creatinine in children is the Bedside Adair equation. It is less accurate in patients with extremes of muscle mass, restriction of dietary protein, ingestion of creatine, extra-renal metabolism of creatinine, or treatment with medications that affect renal tubular creatinine secretion. GFR/1.73 sq M.predicted among blacks MDRD (S/P/Bld) [Vol rate/Area] mL/min/{1.73_m2} >60 mL/min [facility] Work Phone: [phone] Glucose [Mass/Vol] 142 mg/dL High 70 - 100 mg/dL [facility] Work Phone: [phone] Interpretation and review of laboratory results Abnormal [facility] Work Phone: [phone] Potassium [Moles/Vol] 4.4 mmol/L 3.5 - 5.1 mmol/L [facility] Work Phone: [phone] Sodium [Moles/Vol] 136 mmol/L 135 - 145 mmol/L [facility] Work Phone: [phone] Urea nitrogen (BldV) [Mass/Vol] 10 mg/dL 7 - 20 mg/dL [facility] Work Phone: [phone] Test Performed by [facility], [address] [place] [address] [facility] Work Phone: CBC auto differentialOrdered By: Jeff Michael on 09-21-2020 Absolute Baso # 0.1 10*3/uL 0.0 - 0.2 10*3/uL [facility] Work Phone: Absolute Neut # 5.0 10*3/uL 1.8 - 7.0 10*3/uL [facility] Work Phone: Basophils/100 WBC (Bld) 0.7 % 0.0 - 2.0 % [facility] Work Phone: Eosinophils (Bld) [#/Vol] 0.1 10*3/uL 0.0 - 0.5 10*3/uL [facility] Work Phone: Eosinophils/100 WBC (Bld) 1.4 % 1.0 - 6.0 % [facility] Work Phone: Granulocytes/100 WBC (Bld) 63.4 % 40.0 - 80.0 % [facility] Work Phone: Hematocrit (Bld) [Volume fraction] 47.4 % 40.0 - 52.0 % [facility] Work Phone: Hemoglobin.gastrointest inal spec 1 Ql (Stl) 15.3 g/dL 13.0 - 18.0 g/dL [facility] Work Phone: Interpretation and review of laboratory results Abnormal [facility] Work Phone: Lymphocytes (Bld) [#/Vol] 2.1 10*3/uL 1.0 - 4.3 10*3/uL [facility] Work Phone: Lymphocytes/100 WBC (Bld) 26.3 % 20.0 - 40.0 % [facility] Work Phone: MCH (RBC) [Entitic mass] 28.3 pg 26.0 - 34.0 pg [facility] Work Phone: MCHC (RBC) [Mass/Vol] 32.1 % 32.0 - 36.0 % [facility] Work Phone: 1) 22 MCV (RBC) [Entitic vol] 88.1 fL 80.0 - 98.0 fL [facility] Work Phone: 1) 22 Monocytes (Bld) [#/Vol] 0.6 10*3/uL 0.0 - 0.8 10*3/uL [facility] Work Phone: 1) 22 Monocytes/100 WBC (Bld) 8.2 % 2.0 - 10.0 % [facility] Work Phone: 1) Platelet distribution width (Bld) [Ratio] 14.9 % High 11.5 - 14.5 % [facility] Work Phone: 1) Platelet mean volume (Bld) [Entitic vol] 9.4 fL 7.4 - 10.4 fL [facility] Work Phone: 1) Platelets (Bld) [#/Vol] 198 10*3/uL 140 - 440 10*3/uL [facility] Work Phone: 1() RBC (Bld) [#/Vol] 5.38 10*6/uL 4.40 - 5.9 0 10*6/uL [facility] Work Phone: 1) WBC (Bld) [#/Vol] 7.9 10*3/uL 3.6 - 10.7 10*3/uL [facility] Work Phone: 1 Test Performed by [facility], [address] [place] [address] [facility] Work Phone: 1 Glucose,Bedsideon 09-21-2020 Glucose [Mass/Vol] 164 mg/dL High 70-100 [facility] Comment on above: Result Comment: Test performed by glucose meter. Results may be 10%-15% lower than serum/plasma values. (CLIA ID [id number]) Performed By: #### B GLU #### [facility] [employer] [address] [address] Glucose [Mass/Vol] 176 mg/dL High 70-100 [facility] Comment on above: Result Comment: Test performed by glucose meter. Results may be 10%-15% lower than serum/plasma values. (CLIA ID [id number]) Performed By: #### B GLU #### [facility] [address] [place], [place] Glucose [Mass/Vol] 167 mg/dL High 70-100 [facility] Comment on above: Result Comment: Test performed by glucose meter. Results may be 10%-15% lower than serum/plasma values. (CLIA ID [id number]) Performed By: #### B GLU #### [facility] [address] [place], [place] Glucose [Mass/Vol] 138 mg/dL High 70-100 [facility] Comment on above: Result Comment: Test performed by glucose meter. Results may be 10%-15% lower than serum/plasma values. (CLIA ID [id number]) Performed By: #### B GLU #### [facility] [address] [place], [place] Hemogram w/ Autodiffon 09-21 Abs Baso Cnt 0.1 10*3/uL Normal 0.0-0.2 [facility] Comment on above: Performed By: #### B GLU #### [facility] [address] [place], [place] Abs Neutrophile Cnt 5.0 10*3/uL Normal 1.8-7.0 [facility] Comment on above: Performed By: #### B GLU #### [facility] [address] [place], [place] Basophils/100 WBC (Bld) 0.7 % Normal 0.0-2.0 [facility] Comment on above: Performed By: #### B GLU #### [facility] [address] [place], [place] Eosinophils (Bld) [#/Vol] 0.1 10*3/uL Normal 0.0-0.5 [facility] Comment on above: Performed By: #### B GLU #### [facility] [address] [place], [place] Eosinophils/100 WBC (Bld) 1.4 % Normal 1.0-6.0 [facility] Comment on above: Performed By: #### B GLU #### [facility] [address] [place], [place] Erythrocyte distribution width (RBC) [Ratio] 14.9 % High 11.5-14.5 [facility] Comment on above: Performed By: #### B GLU #### [facility] [address] [place], [place] Granulocytes/100 WBC (Bld) 63.4 % Normal 40.0-80.0 [facility] Comment on above: Performed By: #### B GLU #### [facility] [address] [place], [place] Hematocrit (Bld) [Volume fraction] 47.4 % Normal 40.0-52.0 [facility] Comment on above: Performed By: #### B GLU #### [address] [place], [place] Hemoglobin (Bld) [Mass/Vol] 15.3 g/dL Normal 13.0-18.0 [facility] Comment on above: Performed By: #### B GLU #### [facility] [address] [place], [place] Lymphocytes (Bld) [#/Vol] 2.1 10*3/uL Normal 1.0-4.3 [facility] Comment on above: Performed By: #### B GLU #### [address] [place], [place] Lymphocytes/100 WBC (Bld) 26.3 % Normal 20.0-40.0 [facility] Comment on above: Performed By: #### B GLU #### [facility] [address] [place], [place] MCH (RBC) [Entitic mass] 28.3 pg Normal 26.0-34.0 [facility] Comment on above: Performed By: #### B GLU #### [facility] [address] [place], [place] MCHC 32.1 % Normal 32.0-36.0 [facility] Comment on above: Performed By: #### B GLU #### [facility] [address] [place] [address] MCV (RBC) [Entitic vol] 88.1 fL Normal 80.0-98.0 [facility] Comment on above: Performed By: #### B GLU #### [facility] [address] [place] [address] Monocytes (Bld) [#/Vol] 0.6 10*3/uL Normal 0.0-0.8 [facility] Comment on above: Performed By: #### B GLU #### [address] [place] [address] Monocytes/100 WBC (Bld) 8.2 % Normal 2.0-10.0 [facility] Comment on above: Performed By: #### B GLU #### [address] [place], [place] Platelet mean volume (Bld) [Entitic vol] 9.4 fL Normal 7.4-10.4 [facility] Comment on above: Performed By: #### B GLU #### [address] [place], [place] Platelets (Bld) [#/Vol] 198 10*3/uL Normal 140-440 [facility] Comment on above: Performed By: #### B GLU #### [address] [place], [place] RBC (Bld) [#/Vol] 5.38 10*6/uL Normal 4.40-5.90 [facility] Comment on above: Performed By: #### B GLU #### [address] [place], [place] WBC (Bld) [#/Vol] 7.9 10*3/uL Normal 3.6-10.7 [facility] Comment on above: Performed By: #### B GLU #### [address] [place], [place] POCT GlucoseOrdered By: Kaz weldon Ma on 09-21-2020 Glucose [Mass/Vol] 164 mg/dL High 70 - 100 mg/dL [facility] Work Phone: Comment on above: Test performed by gl ucose meter. Results may be 10%-15% lower than serum/plasma values. (CLIA ID [id number]) Interpretation and review of laboratory results Abnormal [facility] Work Phone: 1 Test Performed by [employer], [facility] [place] [address] [facility] Work Phone: 1 Glucose [Mass/Vol] 176 mg/dL High 70 - 100 mg/dL [facility] Work Phone: 1 Comment on above: Test performed by gl ucose meter. Results may be 10%-15% lower than serum/plasma values. (CLIA ID [id number]) Interpretation and review of laboratory results Abnormal [facility] Work Phone: 1 Test Performed by [facility], [facility] [place] [address] [facility] Work Phone: 1 Glucose [Mass/Vol] 167 mg/dL High 70 - 100 mg/dL [facility] Work Phone: 1 Comment on above: Test performed by gl ucose meter. Results may be 10%-15% lower than serum/plasma values. (CLIA ID [id number]) Interpretation and review of laboratory results Abnormal [facility] Work Phone: 1 Test Performed by [facility], [facility] [place] [address] [facility] Work Phone: 1 Glucose [Mass/Vol] 138 mg/dL High 70 - 100 mg/dL [facility] Work Phone: 1 Comment on above: Test performed by gl ucose meter. Results may be 10%-15% lower than serum/plasma values. (CLIA ID [id number]) Interpretation and review of laboratory results Abnormal [facility] Work Phone: 1 Test Performed by [facility], [facility] [place] [address] [facility] Work Phone: [phone] Basic Metabolic Panelon 04-2 Calcium [Mass/Vol] 9.5 mg/dL Normal 8.4-10.4 [facility] Comment on above: Performed By: #### B MP3M, HEMDF #### [facility] [address] [place] [address] Glucose [Mass/Vol] 90 mg/dL Normal 70-100 [facility] Comment on above: Performed By: #### B MP3M, HEMDF #### [facility] [address] [place] [address] Anion gap [Moles/Vol] 8 mmol/L Normal 3-13 [facility] Comment on above: Performed By: #### B MP3M, HEMDF #### [facility] [address] [place] [address] CO2 [Moles/Vol] 25 mmol/L Normal 22-30 [facility] Comment on above: Performed By: #### B MP3M, HEMDF #### [facility] [address] [place] [address] Creatinine [Mass/Vol] 0.78 mg/dL Normal 0.52-1.25 [facility] Comment on above: Performed By: #### B MP3M, HEMDF #### [facility] [address] [place] [address] eGFR OTHER > 90.0 Normal >60 [facility] Comment on above: Result Comment: KDIG O guidelines provide the following GFR categories: Stage GFR(ml/min/1.73 m2) Terms G1 >=90 Normal or high G2 60-89 Mildly decreased* G3a 45-59 Mildly to moderately decreased G3b 30-44 Moderately to severely decreased G4 15-29 Severely decreased G5 <15 Kidney failure *Relative to young adult level. In the absence of evidence of kidney damage, neither GFR category G1 nor G2 fulfill the criteria for CKD. The CKD-EPI equation is validated in individuals 18 years of age and older. Currently the best equation for estimating glomerular filtration rate (GFR) from serum creatinine in children is the Bedside Adair equation. It is less accurate in patients with extremes of muscle mass, restriction of dietary protein, ingestion of creatine, extra-renal metabolism of creatinine, or treatment with medications that affect renal tubular creatinine secretion. Performed By: #### B MP3M, HEMDF #### [facility] [address] [place] [address] GFR/1.73 sq M.predicted among blacks MDRD (S/P/Bld) [Vol rate/Area] mL/min/{1.73_m2} Normal >60 [facility] Comment on above: Performed By: #### B MP3M, HEMDF #### [facility] [address] [place] [address] Urea nitrogen [Mass/Vol] 16 mg/dL Normal 7-20 [facility] Comment on above: Performed By: #### B MP3M, HEMDF #### [facility] [address] [place] [address] Chloride [Moles/Vol] 107 mmol/L Normal 98-107 [facility] Comment on above: Performed By: #### B MP3M, HEMDF #### [facility] [address] [place] [address] Potassium [Moles/Vol] 4.0 mmol/L Normal 3.5-5.1 [facility] Comment on above: Performed By: #### B MP3M, HEMDF #### [facility] [address] [place] [address] Sodium [Moles/Vol] 139 mmol/L Normal 135-145 [facility] Comment on above: Performed By: #### B MP3M, HEMDF #### [facility] [address] [place] [address] Basic Metabolic Panel w/ Ref james to MGOrdered By: Jeff Michael on 09-20-2020 Anion gap [Moles/Vol] 8 mmol/L 3 - 13 mmol/L [facility] Work Phone: Calcium [Mass/Vol] 9.5 mg/dL 8.4 - 10. 4 mg/dL [facility] Work Phone: Chloride [Moles/Vol] 107 mmol/L 98 - 10 7 mmol/L [facility] Work Phone: CO2 [Moles/Vol] 25 mmol/L 22 - 30 mmol/L [facility] Work Phone: Creatinine [Mass/Vol] 0.78 mg/dL 0.52 - 1.25 mg/dL [facility] Work Phone: [phone] EGFR IF NonAfrican Beninese >90.0 >60 mL/min [facility] Work Phone: [phone] Comment on above: KDIGO guidelines pro vide the following GFR categories: Stage GFR(ml/min/1.73 m2) Terms G1 >=90 Normal or high G2 60-89 Mildly decreased* G3a 45-59 Mildly to moderately decreased G3b 30-44 Moderately to severely decreased G4 15-29 Severely decreased G5 <15 Kidney failure *Relative to young adult level. In the absence of evidence of kidney damage, neither GFR category G1 nor G2 fulfill the criteria for CKD. The CKD-EPI equation is validated in individuals 18 years of age and older. Currently the best equation for estimating glomerular filtration rate (GFR) from serum creatinine in children is the Bedside Adair equation. It is less accurate in patients with extremes of muscle mass, restriction of dietary protein, ingestion of creatine, extra-renal metabolism of creatinine, or treatment with medications that affect renal tubular creatinine secretion. GFR/1.73 sq M.predicted among blacks MDRD (S/P/Bld) [Vol rate/Area] mL/min/{1.73_m2} >60 mL/min [facility] Work Phone: [phone] Glucose [Mass/Vol] 90 mg/dL 70 - 100 mg/dL [facility] Work Phone: [phone] Potassium [Moles/Vol] 4.0 mmol/L 3.5 - 5.1 mmol/L [facility] Work Phone: [phone] Sodium [Moles/Vol] 139 mmol/L 135 - 145 mmol/L [facility] Work Phone: [phone] Urea nitrogen (BldV) [Mass/Vol] 16 mg/dL 7 - 20 mg/dL [facility] Work Phone: [phone] Test Performed by [facility] [employer] [facility], [address] [place] [address] [facility] Work Phone: [phone] CBC auto differentialOrdered By: Jeff Michael on 09-20-2020 Absolute Baso # 0.0 10*3/uL 0.0 - 0.2 10*3/uL [facility] Work Phone: Absolute Neut # 6.1 10*3/uL 1.8 - 7.0 10*3/uL [facility] Work Phone: 1 Basophils/100 WBC (Bld) 0.1 % 0.0 - 2.0 % [facility] Work Phone: Eosinophils (Bld) [#/Vol] 0.0 10*3/uL 0.0 - 0.5 10*3/uL [facility] Work Phone: 1 Eosinophils/100 WBC (Bld) 0.4 % Low 1.0 - 6.0 % [facility] Work Phone: 1 Granulocytes/100 WBC (Bld) 67.5 % 40.0 - 80.0 % [facility] Work Phone: Hematocrit (Bld) [Volume fraction] 45.8 % 40.0 - 52.0 % [facility] Work Phone: Hemoglobin.gastrointest inal spec 1 Ql (Stl) 15.1 g/dL 13.0 - 18.0 g/dL [facility] Work Phone: Interpretation and review of laboratory results Abnormal [facility] Work Phone: Lymphocytes (Bld) [#/Vol] 2.2 10*3/uL 1.0 - 4.3 10*3/uL [facility] Work Phone: 1 Lymphocytes/100 WBC (Bld) 23.8 % 20.0 - 40.0 % [facility] Work Phone: MCH (RBC) [Entitic mass] 29.0 pg 26.0 - 34.0 pg [facility] Work Phone: MCHC (RBC) [Mass/Vol] 33.0 % 32.0 - 36.0 % [facility] Work Phone: MCV (RBC) [Entitic vol] 88.0 fL 80.0 - 98.0 fL [facility] Work Phone: Monocytes (Bld) [#/Vol] 0.7 10*3/uL 0.0 - 0.8 10*3/uL [facility] Work Phone: 22 Monocytes/100 WBC (Bld) 8.2 % 2.0 - 10.0 % [facility] Work Phone: 1 Platelet distribution width (Bld) [Ratio] 14.9 % High 11.5 - 14.5 % [facility] Work Phone: 1 Platelet mean volume (Bld) [Entitic vol] 9.9 fL 7.4 - 10.4 fL [facility] Work Phone: 1 22 Platelets (Bld) [#/Vol] 175 10*3/uL 140 - 440 10*3/uL [facility] Work Phone: 1 RBC (Bld) [#/Vol] 5.21 10*6/uL 4.40 - 5.9 0 10*6/uL [facility] Work Phone: 1) WBC (Bld) [#/Vol] 9.1 10*3/uL 3.6 - 10.7 10*3/uL [facility] Work Phone: 1 Test Performed by [facility], [address] [place] [id number] [place], [place] [address] Work Phone: [phone] Glucose,Bedsideon 09-20-2020 Glucose [Mass/Vol] 159 mg/dL High 70-100 [facility] Comment on above: Result Comment: Test performed by glucose meter. Results may be 10%-15% lower than serum/plasma values. (CLIA ID [id number]) Performed By: #### B MP3M, HEMDF #### [facility] [employer] [address] [place] [address] Glucose [Mass/Vol] 119 mg/dL High 70-100 [facility] Comment on above: Result Comment: Test performed by glucose meter. Results may be 10%-15% lower than serum/plasma values. (CLIA ID [id number]) Performed By: #### B MP3M, HEMDF #### [facility] [address] [place] [id number] Glucose [Mass/Vol] 122 mg/dL High 70-100 [facility] Comment on above: Result Comment: Test performed by glucose meter. Results may be 10%-15% lower than serum/plasma values. (CLIA ID [id number]) Performed By: #### B GLU #### [address] [place], [place] Glucose [Mass/Vol] 85 mg/dL Normal 70-100 [facility] Comment on above: Result Comment: Test performed by glucose meter. Results may be 10%-15% lower than serum/plasma values. (CLIA ID [id number]) Performed By: #### B MP3M, HEMDF #### [address] [place], [place] Glucose [Mass/Vol] 145 mg/dL High 70-100 [facility] Comment on above: Result Comment: Test performed by glucose meter. Results may be 10%-15% lower than serum/plasma values. (CLIA ID [id number]) Performed By: #### B GLU #### [address] [address] [place], [place] Hemogram w/ Autodiffon 09-20 Abs Baso Cnt 0.0 10*3/uL Normal 0.0-0.2 [facility] Comment on above: Performed By: #### B MP3M, HEMDF #### [address] [address] [place], [place] Abs Neutrophile Cnt 6.1 10*3/uL Normal 1.8-7.0 [facility] Comment on above: Performed By: #### B MP3M, HEMDF #### [address] [place], [place] Basophils/100 WBC (Bld) 0.1 % Normal 0.0-2.0 [facility] Comment on above: Performed By: #### B MP3M, HEMDF #### [address] Eosinophils (Bld) [#/Vol] 0.0 10*3/uL Normal 0.0-0.5 [facility] Comment on above: Performed By: #### B MP3M, HEMDF #### [address] [place], [place] Eosinophils/100 WBC (Bld) 0.4 % Low 1.0-6.0 [facility] Comment on above: Performed By: #### B MP3M, HEMDF #### [address] [place], [place] Erythrocyte distribution width (RBC) [Ratio] 14.9 % High 11.5-14.5 [facility] Comment on above: Performed By: #### B MP3M, HEMDF #### [address] [place], [place] Granulocytes/100 WBC (Bld) 67.5 % Normal 40.0-80.0 [facility] Comment on above: Performed By: #### B MP3M, HEMDF #### [address] [place], [place] Hematocrit (Bld) [Volume fraction] 45.8 % Normal 40.0-52.0 [facility] Comment on above: Performed By: #### B MP3M, HEMDF #### [address] [place], [place] Hemoglobin (Bld) [Mass/Vol] 15.1 g/dL Normal 13.0-18.0 [facility] Comment on above: Performed By: #### B MP3M, HEMDF #### [address] [place], [place] Lymphocytes (Bld) [#/Vol] 2.2 10*3/uL Normal 1.0-4.3 [facility] Comment on above: Performed By: #### B MP3M, HEMDF #### [place] [address] [address] [place], [place] Lymphocytes/100 WBC (Bld) 23.8 % Normal 20.0-40.0 [facility] Comment on above: Performed By: #### B MP3M, HEMDF #### [place] [address] [address] [place], [place] MCH (RBC) [Entitic mass] 29.0 pg Normal 26.0-34.0 [facility] Comment on above: Performed By: #### B MP3M, HEMDF #### [facility] [address] [place], [place] MCHC 33.0 % Normal 32.0-36.0 [facility] Comment on above: Performed By: #### B MP3M, HEMDF #### [facility] [address] [place], [place] MCV (RBC) [Entitic vol] 88.0 fL Normal 80.0-98.0 [facility] Comment on above: Performed By: #### B MP3M, HEMDF #### [facility] [address] [place], [place] Monocytes (Bld) [#/Vol] 0.7 10*3/uL Normal 0.0-0.8 [facility] Comment on above: Performed By: #### B MP3M, HEMDF #### [place] [address] [address] [place], [place] Monocytes/100 WBC (Bld) 8.2 % Normal 2.0-10.0 [facility] Comment on above: Performed By: #### B MP3M, HEMDF #### [place] [address] [address] [place], [place] Platelet mean volume (Bld) [Entitic vol] 9.9 fL Normal 7.4-10.4 [facility] Comment on above: Performed By: #### B MP3M, HEMDF #### [facility] [address] [place], [place] Platelets (Bld) [#/Vol] 175 10*3/uL Normal 140-440 [facility] Comment on above: Performed By: #### B MP3M, HEMDF #### [facility] [address] [place], [place] RBC (Bld) [#/Vol] 5.21 10*6/uL Normal 4.40-5.90 [facility] Comment on above: Performed By: #### B MP3M, HEMDF #### [facility] [address] [place], [place] WBC (Bld) [#/Vol] 9.1 10*3/uL Normal 3.6-10.7 [facility] Comment on above: Performed By: #### B MP3M, HEMDF #### [facility] [address] [place] [phone] POCT GlucoseOrdered By: Kaz weldon Ma on 09-20-2020 Glucose [Mass/Vol] 159 mg/dL High 70 - 100 mg/dL [facility] Work Phone: 1 Comment on above: Test performed by gl ucose meter. Results may be 10%-15% lower than serum/plasma values. (CLIA ID [id number]) Interpretation and review of laboratory results Abnormal [facility] Work Phone: 1 Test Performed by [facility], [address] [place] [address] [facility] Work Phone: [phone] Glucose [Mass/Vol] 119 mg/dL High 70 - 100 mg/dL [facility] Work Phone: 1 Comment on above: Test performed by gl ucose meter. Results may be 10%-15% lower than serum/plasma values. (CLIA ID [id number]) Interpretation and review of laboratory results Abnormal [facility] Work Phone: [phone] Test Performed by [facility], [address] [place] [address] [facility] Work Phone: 1 Glucose [Mass/Vol] 122 mg/dL High 70 - 100 mg/dL [facility] Work Phone: [phone] Comment on above: Test performed by gl ucose meter. Results may be 10%-15% lower than serum/plasma values. (CLIA ID [id number]) Interpretation and review of laboratory results Abnormal [facility] Work Phone: [phone] Test Performed by [facility], [address] [place] [address] [facility] Work Phone: 1 Glucose [Mass/Vol] 85 mg/dL 70 - 100 mg/dL [facility] Work Phone: 1 Comment on above: Test performed by gl ucose meter. Results may be 10%-15% lower than serum/plasma values. (CLIA ID [id number]) Test Performed by [facility], [facility] [place] [address] [facility] Work Phone: Surgical PathologyOrdered By : Dean Chisholm on 09-20-2020 Surgical Pathology Report SEE BELOW [facility] Work Phone: [phone] DEPARTME NT [facility] PATHOLOGY AND LABORATORY MEDICINE [facility] [place] [address] FINAL SURGICAL PATHOLOGY REPORT ___ NAME: CHUCK GARZA N [id number] : 1965 55 [address] [place] [facility] NO.: [id number] LOCATION: [place] [id number] 01 PROCEDURE 09/18/2020 DATE: SURGEON: DEAN CHISHOLM M.D. RECEIVED 09/19/2020 DATE: ATTENDING: DEAN CHISHOLM M.D. REPORT DATE: 09/20/2020 COPIES TO: ___ DIAGNOSIS: A. 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 RECTUM, EXCISION - BENIGN NONINFLAMED RECTAL TISSUE REACTIVE LYMPH NODE (0/1) C. ANASTOMOTIC RINGS, EXCISION - UNREMARKABLE COLONIC/RECTAL TISSUE JAW/JAW Signature> YUMIKO ZHOU M.D. ___ CLINICAL INFORMATION: Retroperitoneal fistula SPECIMEN: (A) COLOSTOMY STOMA (B) COLON, PARTIAL/TOTAL (C) ANASTOMOTIC RINGS ___ GROSS DESCRIPTION: A. Received in formalin labeled colostomy is one piece of bowel measuring 2 cm in length by 3 cm in diameter. The specimen is open on both ends. The surface is dark marquez and roughened with surgical artifacts. Cut surfaces reveal fibrotic bowel tissue throughout. The specimen is represented in one cassette. B. Received in formalin labeled rectum is one unoriented segment of bowel measuring 7 cm in length by an average diameter of 5 cm. One end contains peyton. This end is inked in black. The surface is pink to marquez-lo, with unremarkable perirectal fat. Cut surfaces reveal pale lo well folded mucosa with no grossly visible lesions. Global Marketing Coordinator sections are submitted as follows: B1- margin, B2- car sales representative sections of the specimen, B3- car sales representative vessel intact, B4- possible lymph node. C. Received in formalin labeled anastomotic rings are two anastomotic rings, one of which was attached to a metal device. The metal device is submitted for gross. The two anastomotic rings aggregate to 4 x 2 cm. Cut surfaces show ulcerated bowel tissue. The specimen is represented in one cassette. MM0/MM0 Disclaimer: The following statement applies to all immunohistochemistry, in situ hybridization, molecular studies, and immunofluorescence testing. The use of one or more reagents in the above tests is regulated as an analyte specific reagent (ASR). These tests were developed and their performance characteristics determined by the clinical laboratories of [facility] [employer] [facility]. They have not been cleared by the US Food and Drug Administration (FDA). The FDA has determined that such clearance or approval is not necessary. All the above immunostains were performed on paraffin embedded tissue. Appropriate positive and negative controls (where applicable) were run in parallel with the patient's specimen; these controls showed expected staining pattern, with acceptable intensity of staining. Immunohistochemical assays have not been validated on decalcified tissues. Results should be interpreted with caution given the raised possibility of false negativity on decalcified specimens. Professional Performing Location: [facility] [address] [place] [address]. DEPARTMENT OF PATHOLOGY AND LABORATORY MEDICINE [place], [place] [facility] Work Phone: Basic Metabolic Panelon 04-2 Calcium [Mass/Vol] 9.3 mg/dL Normal 8.4-10.4 [facility] Comment on above: Performed By: #### B MP3M, HEMDF #### [place] [address] [place], [place] Anion gap [Moles/Vol] 7 mmol/L Normal 3-13 [facility] Comment on above: Performed By: #### B MP3M, HEMDF #### [place] [address] [place], [place] CO2 [Moles/Vol] 23 mmol/L Normal 22-30 [facility] Comment on above: Performed By: #### B MP3M, HEMDF #### [place] [address] [place], [place] Glucose [Mass/Vol] 234 mg/dL High 70-100 [facility] Comment on above: Performed By: #### B MP3M, HEMDF #### [place] [address] [place], [place] Urea nitrogen [Mass/Vol] 20 mg/dL Normal 7-20 [facility] Comment on above: Performed By: #### B MP3M, HEMDF #### [place] [address] [place], [place] Creatinine [Mass/Vol] 0.80 mg/dL Normal 0.52-1.25 [facility] Comment on above: Performed By: #### B MP3M, HEMDF #### [place] [address] [place], [place] eGFR OTHER > 90.0 Normal >60 [facility] Comment on above: Result Comment: KDIG O guidelines provide the following GFR categories: Stage GFR(ml/min/1.73 m2) Terms G1 >=90 Normal or high G2 60-89 Mildly decreased* G3a 45-59 Mildly to moderately decreased G3b 30-44 Moderately to severely decreased G4 15-29 Severely decreased G5 <15 Kidney failure *Relative to young adult level. In the absence of evidence of kidney damage, neither GFR category G1 nor G2 fulfill the criteria for CKD. The CKD-EPI equation is validated in individuals 18 years of age and older. Currently the best equation for estimating glomerular filtration rate (GFR) from serum creatinine in children is the Bedside Adair equation. It is less accurate in patients with extremes of muscle mass, restriction of dietary protein, ingestion of creatine, extra-renal metabolism of creatinine, or treatment with medications that affect renal tubular creatinine secretion. Performed By: #### B MP3M, HEMDF #### [address] GFR/1.73 sq M.predicted among blacks MDRD (S/P/Bld) [Vol rate/Area] mL/min/{1.73_m2} Normal >60 [facility] Comment on above: Performed By: #### Talha MP3M, HEMDF #### [place] [address] [place], [place] Chloride [Moles/Vol] 104 mmol/L Normal 98-107 [facility] Comment on above: Performed By: #### Talha MP3M, HEMDF #### [address] Potassium [Moles/Vol] 4.6 mmol/L Normal 3.5-5.1 [facility] Comment on above: Performed By: #### Talha MP3M, HEMDF #### [address] Sodium [Moles/Vol] 133 mmol/L Low 135-145 [facility] Comment on above: Performed By: #### B MP3M, HEMDF #### [address] Basic Metabolic Panel w/ Ref james to MGOrdered By: Jeff Michael on 09-19-2020 Anion gap [Moles/Vol] 7 mmol/L 3 - 13 mmol/L [facility] Work Phone: Calcium [Mass/Vol] 9.3 mg/dL 8.4 - 10. 4 mg/dL [facility] Work Phone: [phone] Chloride [Moles/Vol] 104 mmol/L 98 - 10 7 mmol/L [facility] Work Phone: [phone] CO2 [Moles/Vol] 23 mmol/L 22 - 30 mmol/L [facility] Work Phone: [phone] Creatinine [Mass/Vol] 0.8 mg/dL 0.52 - 1.25 mg/dL [facility] Work Phone: [phone] EGFR IF NonAfrican Beninese >90.0 >60 mL/min [facility] Work Phone: [phone] Comment on above: KDIGO guidelines pro vide the following GFR categories: Stage GFR(ml/min/1.73 m2) Terms G1 >=90 Normal or high G2 60-89 Mildly decreased* G3a 45-59 Mildly to moderately decreased G3b 30-44 Moderately to severely decreased G4 15-29 Severely decreased G5 <15 Kidney failure *Relative to young adult level. In the absence of evidence of kidney damage, neither GFR category G1 nor G2 fulfill the criteria for CKD. The CKD-EPI equation is validated in individuals 18 years of age and older. Currently the best equation for estimating glomerular filtration rate (GFR) from serum creatinine in children is the Bedside Adair equation. It is less accurate in patients with extremes of muscle mass, restriction of dietary protein, ingestion of creatine, extra-renal metabolism of creatinine, or treatment with medications that affect renal tubular creatinine secretion. GFR/1.73 sq M.predicted among blacks MDRD (S/P/Bld) [Vol rate/Area] mL/min/{1.73_m2} >60 mL/min [facility] Work Phone: [phone] Glucose [Mass/Vol] 234 mg/dL High 70 - 100 mg/dL [facility] Work Phone: [phone] Interpretation and review of laboratory results Abnormal [facility] Work Phone: [phone] Potassium [Moles/Vol] 4.6 mmol/L 3.5 - 5.1 mmol/L [facility] Work Phone: [phone] Sodium [Moles/Vol] 133 mmol/L Low 135 - 145 mmol/L [facility] Work Phone: [phone] Urea nitrogen (BldV) [Mass/Vol] 20 mg/dL 7 - 20 mg/dL [facility] Work Phone: [phone] CBC auto differentialOrdered By: Jeff Michael on 09-19-2020 Absolute Baso # 0.0 10*3/uL 0.0 - 0.2 10*3/uL [facility] Work Phone: [phone] Absolute Neut # 9.3 10*3/uL High 1.8 - 7.0 10*3/uL [facility] Work Phone: [phone] Basophils/100 WBC (Bld) 0.2 % 0.0 - 2.0 % [facility] Work Phone: [phone] Eosinophils (Bld) [#/Vol] 0.0 10*3/uL 0.0 - 0.5 10*3/uL [facility] Work Phone: [phone] Eosinophils/100 WBC (Bld) 0.0 % Low 1.0 - 6.0 % [facility] Work Phone: [phone] Granulocytes/100 WBC (Bld) 89.4 % High 40.0 - 80.0 % [facility] Work Phone: [phone] Hematocrit (Bld) [Volume fraction] 46.7 % 40.0 - 52.0 % [facility] Work Phone: [phone] Hemoglobin.gastrointest inal spec 1 Ql (Stl) 15.4 g/dL 13.0 - 18.0 g/dL [facility] Work Phone: [phone] Interpretation and review of laboratory results Abnormal [facility] Work Phone: [phone] Lymphocytes (Bld) [#/Vol] 0.6 10*3/uL Low 1.0 - 4.3 10*3/uL [facility] Work Phone: [phone] Lymphocytes/100 WBC (Bld) 6.0 % Low 20.0 - 40.0 % [facility] Work Phone: [phone] MCH (RBC) [Entitic mass] 28.7 pg 26.0 - 34.0 pg [facility] Work Phone: [phone] MCHC (RBC) [Mass/Vol] 32.9 % 32.0 - 36.0 % [facility] Work Phone: MCV (RBC) [Entitic vol] 87.2 fL 80.0 - 98.0 fL [facility] Work Phone: [phone] Monocytes (Bld) [#/Vol] 0.5 10*3/uL 0.0 - 0.8 10*3/uL [facility] Work Phone: [phone] Monocytes/100 WBC (Bld) 4.4 % 2.0 - 10.0 % [facility] Work Phone: [phone] Platelet distribution width (Bld) [Ratio] 14.6 % High 11.5 - 14.5 % [facility] Work Phone: [phone] Platelet mean volume (Bld) [Entitic vol] 9.7 fL 7.4 - 10.4 fL [facility] Work Phone: [phone] Platelets (Bld) [#/Vol] 175 10*3/uL 140 - 440 10*3/uL [facility] Work Phone: [phone] RBC (Bld) [#/Vol] 5.35 10*6/uL 4.40 - 5.9 0 10*6/uL [facility] Work Phone: [phone] WBC (Bld) [#/Vol] 10.4 10*3/uL 3.6 - 10.7 10*3/uL [facility] Work Phone: [phone] Test Performed by [facility], [address] [place] [address] [facility] Work Phone: Glucose,Bedsideon 09-19-2020 Glucose [Mass/Vol] 139 mg/dL High 70-100 [facility] Comment on above: Result Comment: Test performed by glucose meter. Results may be 10%-15% lower than serum/plasma values. (CLIA ID [id number]) Performed By: #### B GLU #### [address] [address] Glucose [Mass/Vol] 179 mg/dL High 70-100 [facility] Comment on above: Result Comment: Test performed by glucose meter. Results may be 10%-15% lower than serum/plasma values. (CLIA ID [id number]) Performed By: #### B MP3M, HEMDF #### [place] [address] [place], [place] Glucose [Mass/Vol] 174 mg/dL High 70-100 [facility]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 (EUA) granted by the FDA for the qualitative detection of SARS-CoV-2 nucleic acid. Provider and patient fact sheets can be found at https://www.fda.gov/med ia/488276/download and https://www.fda.gov/med ia/967961/download. Expected Result: Not Detected _ Real-time, RT-PCR performed on the [employer] System by the [facility] Negative results do not preclude SARS-CoV-2 infection and should not be used as the sole basis for treatment or other patient management decisions. This assay was developed by [employer] and distributed under an Emergency Use Authorization (EUA) granted by the FDA for the qualitative detection of SARS-CoV-2 nucleic acid. Provider and patient fact sheets can be found at https://www.fda.gov/med ia/602606/download and https://www.fda.gov/med ia/047457/download. Normal [facility] [employer] [facility] Comment on above: Performed By: #### C OVID #### [facility] [address] [place] [id number] TS GELon 09-15-2020 TS GEL ABO Group: A Rh, Gel: NEG Antibody Screen Gel: NEG Normal [facility] Comment on above: Performed By: #### T SGL #### [facility] [employer] TYPE AND SCREENOrdered By: Flower Grullon on 09-15-2020 ABO Grouping A [facility] Work Phone: Rh Type Negative [facility] Work Phone: Test Performed by [facility] [employer] [facility], [address] [place] [address] [facility] Work Phone: Surgical Pathologyon 021 Surgical Pathology [id number] [facility] PATHOLOGY AND LABORATORY MEDICINE [address] [place] [address] FINAL SURGICAL PATHOLOGY REPORT ___ NAME: CHUCK GARZA : 1965 55 Y M BILLING NO.: [id number] LOCATION: 1XEO PROCEDURE 08/21/2020 DATE: SURGEON: DEAN CHISHOLM M.D. RECEIVED 08/22/2020 DATE: ATTENDING: DEAN CHISHOLM M.D. REPORT DATE: 08/23/2020 COPIES TO: ___ DIAGNOSIS: A. ILEOCECAL VALVE, POLYPECTOMY - TUBULAR ADENOMA B. COLON, TRANSVERSE, POLYPECTOMY x2 - FRAGMENTS OF TUBULAR ADENOMA(S) AND FRAGMENT OF BENIGN COLONIC MUCOSA HCK/HCK Signature> NEW YOUNG M.D. ___ CLINICAL INFORMATION: Attention to colostomy SPECIMEN: (A) COLON POLYP, BIOPSY (B) COLON POLYP, BIOPSY ___ GROSS DESCRIPTION: A. Ileocecal valve Received in formalin is a segment of lo tissue 0.4 cm. The specimen is entirely submitted in a single cassette. B. Transverse colon polyps Received in formalin are two segments of lo tissue 0.4 cm each. The specimen is entirely submitted in a single cassette. JCK/LEVY Disclaimer: The following statement applies to all immunohistochemistry, in situ hybridization, molecular studies, and immunofluorescence testing. The use of one or more reagents in the above tests is regulated as an analyte specific reagent (ASR). These tests were developed and their performance characteristics determined by the clinical laboratories of [facility]. They have not been cleared by the US Food and Drug Administration (FDA). The FDA has determined that such clearance or approval is not necessary. All the above immunostains were performed on paraffin embedded tissue. Appropriate positive and negative controls (where applicable) were run in parallel with the patient's specimen; these controls showed expected staining pattern, with acceptable intensity of staining. Immunohistochemical assays have not been validated on decalcified tissues. Results should be interpreted with caution given the raised possibility of false negativity on decalcified specimens. Professional Performing Location: [address] [address]. DEPARTMENT OF PATHOLOGY AND LABORATORY MEDICINE [place], [place] [address] [email or web address] g Normal [facility] Vital Signs Date Time Vital Sign Value Performing Clinician Facility 08-08-2023 11:11-0500 Body height 180.[address] Miquel Palacio Work Phone: [facility] 08-08-2023 11:11-0500 Body mass index (BMI) [Ratio] 23.7 kg/m2 Dr. Miquel Palacio Work Phone: [facility] 08-08-2023 11:11-0500 Body weight 77.[address] Miquel Palacio Work Phone: [facility] 01-14-2022 10:56-0400 Body height 180.[address] Miquel Palacio Work Phone: [facility] Work Phone: 01-14-2022 10:56-0400 Body mass index (BMI) [Ratio] 25.7 kg/m2 Dr. Miquel Palacio Work Phone: [facility] Work Phone: 01-14-2022 10:56-0400 Body weight 83.[address] Miquel Palacio Work Phone: [facility] Work Phone: 01-14-2022 10:56-0400 Diastolic blood pressure 81 mm[Hg] Dr. Miquel Palacio Work Phone: [facility] Work Phone: 01-14-2022 10:56-0400 Heart rate 118 /min Dr. Miquel Palacio Work Phone: [facility] Work Phone: 01-14-2022 10:56-0400 Respiratory rate 20 /min Dr. Miquel Palacio Work Phone: [facility] Work Phone: 01-14-2022 10:56-0400 SaO2% (BldA) [Mass fraction] 96 % Dr. Miquel Palacio Work Phone: [facility] Work Phone: 01-14-2022 10:56-0400 Systolic blood pressure 126 mm[Hg] Dr. Miquel Palacio Work Phone: [facility] Work Phone: 01-02-2022 09:14-0400 Body mass index (BMI) [Ratio] 25.7 kg/m2 Dr. Miquel Palacio Work Phone: [facility] Work Phone: 01-02-2022 09:14-0400 Body weight 83.[address] Miquel Palacio Work Phone: [facility] Work Phone: 01-02-2022 09:14-0400 Diastolic blood pressure 86 mm[Hg] Dr. Miquel Palacio Work Phone: [facility] Work Phone: 01-02-2022 09:14-0400 Heart rate 113 /min Dr. Miquel Palacio Work Phone: [facility] Work Phone: 01-02-2022 09:14-0400 Respiratory rate 18 /min Dr. Miquel Palacio Work Phone: [facility] Work Phone: 01-02-2022 09:14-0400 SaO2% (BldA) [Mass fraction] 95 % Dr. Miquel Palacio Work Phone: [facility] Work Phone: 01-02-2022 09:14-0400 Systolic blood pressure 134 mm[Hg] Dr. Miquel Palacio Work Phone: [facility] Work Phone: 07-18-2021 16:18-0500 Body weight 94.34 kg [facility] Work Phone: 09-23-2020 09:13-0400 Body temperature 97.3 [degF] Dean Chisholm MD Work Phone: [facility] Work Phone: 09-23-2020 09:13-0400 Diastolic blood pressure 76 mm[Hg] Dean Chisholm MD Work Phone: [facility] Work Phone: 09-23-2020 09:13-0400 Heart rate 101 /min Dean Chisholm MD Work Phone: [facility] Work Phone: 09-23-2020 09:13-0400 Respiratory rate 18 /min Dean Chisholm MD Work Phone: [facility] Work Phone: 09-23-2020 09:13-0400 SaO2% (BldA) [Mass fraction] 95 % Dean Chisholm MD Work Phone: [facility] Work Phone: 09-23-2020 09:13-0400 Systolic blood pressure 106 mm[Hg] Dean Chisholm MD Work Phone: [facility] Work Phone: 09-21-2020 15:38-0400 Body height 180.3 cm Dean Chisholm MD Work Phone: [facility] Work Phone: 09-18-2020 10:49-0400 Body mass index (BMI) [Ratio] 27.62 kg/m2 Dean Chisholm MD Work Phone: [facility] Work Phone: 09-18-2020 10:49-0400 Body weight 89.81 kg Dean Chisholm MD Work Phone: [facility] Work Phone: 09-15-2020 10:19-0400 Diastolic blood pressure 69 mm[Hg] Dean Chisholm MD Work Phone: [facility] Work Phone: 09-15-2020 10:19-0400 Heart rate 101 /min Dean Chisholm MD Work Phone: [facility] Work Phone: 09-15-2020 10:19-0400 Systolic blood pressure 102 mm[Hg] Dean Chisholm MD Work Phone: [facility] Work Phone: 09-15-2020 09:55-0400 Body height 180.3 cm Dean Chisholm MD Work Phone: [facility] Work Phone: 09-15-2020 09:55-0400 Body mass index (BMI) [Ratio] 27.62 kg/m2 Dean Chisholm MD Work Phone: [facility] Work Phone: 09-15-2020 09:55-0400 Body temperature 97.59 [degF] Dean Chisholm MD Work Phone: [facility] Work Phone: 09-15-2020 09:55-0400 Body weight 89.81 kg Dean Chisholm MD Work Phone: [facility] Work Phone: 09-15-2020 09:55-0400 SaO2% (BldA) [Mass fraction] 96 % Dean Chisholm MD Work Phone: [facility] Work Phone: 08-21-2020 15:05-0400 BP Diastolic 93 mm[Hg] Dean Chisholm [facility] Work Phone: 08-21-2020 15:05-0400 BP Systolic 109 mm[Hg] Dean CUELLAR Work Phone: 08-21-2020 15:05-0400 Pulse (Heart Rate) 93 /min Dean CUELLAR Work Phone: 08-21-2020 15:05-0400 Pulse Oximetry 98 % Dean CUELLAR Work Phone: 08-21-2020 15:05-0400 Respiratory Rate 18 /min Dean CUELLAR Work Phone: 08-21-2020 14:42-0400 Body Temperature 97.39 [degF] Dean CUELLAR Work Phone: Encounters Encounter Date Encounter Type Care Provider Facility Start: 12-06-2024 ambulatory Shruti Najera Facility:[facility] Start: 10-08-2024 ambulatory Nick Bella Facility :[facility] Start: 02-04-2024 ambulatory Miquel Palacio Facility:[facility] Start: 09-08-2023 End: 09-08-[address] Miquel Palacio Work Phone: [facility] Work Phone: Start: 09-08-2023 End: 09-08-[address] Miquel Palacio Work Phone: [facility] Work Phone: Start: 08-08-2023 End: 08-08-[address] Miquel Palacio Work Phone: [facility] Work Phone: Start: 08-06-2023 End: 08-06-[address] Miquel Palacio Work Phone: [facility] Work Phone: Start: 08-06-2023 End: 08-06-[address] Miquel Palacio Work Phone: [facility]-Laboratory, Phy Office 3rd Flr Start: 08-05-2023 End: 08-05-[address] Miquel Palacio Work Phone: [facility] Work Phone: Start: 08-05-2023 End: 08-05-[address] [facility] Start: 02-07-2023 End: 02-07-2023 ambulatory [facility] Work Phone: Start: 02-07-2023 End: 02-07-2023 [facility] Start: 08-01-2022 End: 08-01-2022 ambulatory [facility] Work Phone: Start: 08-01-2022 End: 08-01-2022 [facility] Start: 04-18-2022 End: 04-18-2022 [facility] Start: 04-08-2022 End: 04-08-[address] Miquel Palacio Work Phone: [facility] Work Phone: Start: 04-08-2022 End: 04-08-[address] [facility] Start: 01-14-2022 End: 01-14-[address] Miquel Palacio Work Phone: [facility] Start: 01-02-2022 End: 01-02-[address] Miquel Palacio Work Phone: [facility] Start: 11-18-2021 End: 11-18-2021 Emergency department patient visit MIQUEL PALACIO [facility] Start: 11-05-2021 End: 06-06-2022 Patient encounter procedure [facility] Start: 10-12-2021 End: 10-12-2021 Patient encounter procedure [facility]-Ultrasound, WC Start: 08-07-2021 End: 08-07-2021 Patient encounter procedure [facility]-Laboratory, Phy Office 3rd Flr Start: 07-18-2021 End: 07-30-2021 Discharged Recurring [facility]Di[facility] Start: 03-26-2021 End: 03-27-2021 [facility] Start: 09-18-2020 End: 09-23-2020 Evaluation and management of inpatient Dean Chisholm MD Work Phone: [facility] H[facility] MED SURG Comment on above: S/P colostomy takedo wn (Primary Dx) Start: 09-15-2020 End: 09-15-2020 Subsequent hospital visit by physician Dean Chisholm MD Work Phone: [facility] Pre-Admit Testing Comment on above: Screening for viral disease Start: 08-21-2020 End: 08-21-2020 Subsequent hospital visit by physician Dean Chisholm Work Phone: [facility] [address] End[facility] Comment on above: Arrived Procedures Date Procedure Procedure Detail Performing Clinician Start: 09-08-2023 MRI of joint of lowe r extremity Dr. Miquel Palacio Work Phone: Start: 08-08-2023 Plain X-ray of shoulder Dr. Miquel Palacio Work Phone: Start: 10-12-2021 US urinary tract Start: 09-23-2020 Gluc bld gluc mntr d ev cleared fda spec home use Dean Chisholm MD Work Phone: Start: 09-22-2020 Gluc bld gluc mntr d ev cleared fda spec home use Dean Chisholm MD Work Phone: Start: 09-22-2020 Gluc bld gluc mntr d ev cleared fda spec home use Dean Chisholm MD Work Phone: Start: 09-22-2020 Gluc bld gluc mntr d ev cleared fda spec home use Dean Chisholm MD Work Phone: Start: 09-22-2020 Gluc bld gluc mntr d ev cleared fda spec home use Dean Chisholm MD Work Phone: Start: 09-22-2020 BASIC METABOLIC PANE L W/ REFLEX TO MG FOR LOW K Jeff Michael MD Work Phone: Start: 09-22-2020 Blood count complete auto&auto difrntl wbc Jeff Michael MD Work Phone: Start: 09-21-2020 Gluc bld gluc mntr d ev cleared fda spec home use Dean Chisholm MD Work Phone: Start: 09-21-2020 Gluc bld gluc mntr d ev cleared fda spec home use Dean Chisholm MD Work Phone: Start: 09-21-2020 Gluc bld gluc mntr d ev cleared fda spec home use Dean Chisholm MD Work Phone: Start: 09-21-2020 Gluc bld gluc mntr d ev cleared fda spec home use Dean Chisholm MD Work Phone: Start: 09-21-2020 BASIC METABOLIC PANE L W/ REFLEX TO MG FOR LOW K Jeff Michael MD Work Phone: Start: 09-21-2020 Blood count complete auto&auto difrntl wbc Jeff Michael MD Work Phone: Start: 09-20-2020 Gluc bld gluc mntr d ev cleared fda spec home use Dean Chisholm MD Work Phone: Start: 09-20-2020 Gluc bld gluc mntr d ev cleared fda spec home use Dean Chisholm MD Work Phone: Start: 09-20-2020 Gluc bld gluc mntr d ev cleared fda spec home use Dean Chisholm MD Work Phone: Start: 09-20-2020 Gluc bld gluc mntr d ev cleared fda spec home use Dean Chisholm MD Work Phone: Start: 09-20-2020 BASIC METABOLIC PANE L W/ REFLEX TO MG FOR LOW K Jeff Michael MD Work Phone: Start: 09-20-2020 Blood count complete auto&auto difrntl wbc Jeff Michael MD Work Phone: Start: 09-19-2020 Gluc bld gluc mntr d ev cleared fda spec home use Dean Chisholm MD Work Phone: Start: 09-19-2020 Gluc bld gluc mntr d ev cleared fda spec home use Dean Chisholm MD Work Phone: Start: 09-19-2020 Gluc bld gluc mntr d ev cleared fda spec home use Dean Chisholm MD Work Phone: Start: 09-19-2020 Gluc bld gluc mntr d ev cleared fda spec home use Dean Chisholm MD Work Phone: Start: 09-19-2020 Assay of magnesium Abimael Michael MD Work Phone: Start: 09-19-2020 BASIC METABOLIC PANE L W/ REFLEX TO MG FOR LOW K Jeff Michael MD Work Phone: Start: 09-18-2020 Gluc bld gluc mntr d ev cleared fda spec home use Dean Chisholm MD Work Phone: Start: 09-18-2020 OPERATIVE REPORT 3m Sca nning Start: 09-18-2020 Gluc bld gluc mntr d ev cleared fda spec home use Dean Chisholm MD Work Phone: Start: 09-18-2020 Level iv surg pathol ogy gross&microscopic exam Dean Chisholm MD Work Phone: Start: 09-18-2020 Gluc bld gluc mntr d ev cleared fda spec home use Dean Chisholm MD Work Phone: Start: 09-15-2020 Antibody screen Dean Chisholm MD Work Phone: Start: 09-15-2020 COVID-19 Dean Chisholm MD Work Phone: Start: 09-15-2020 Basic metabolic pane l calcium total Edith Grullon AIR TUBE RELEASER - PHOTOGRAMMETRIC SURVEYOR Work Phone: Start: 09-15-2020 Blood typing serologic abo Edith Grullon AIR TUBE RELEASER - PHOTOGRAMMETRIC SURVEYOR Work Phone: Start: 09-15-2020 Ecg routine ecg w/le ast 12 lds w/i&r Edith Grullon AIR TUBE RELEASER - PHOTOGRAMMETRIC SURVEYOR Work Phone: Start: 08-21-2020 Colonoscopy 3m Scannin g Plan of Treatment Date Care Activity Detail Author Start: 08-21-2030 Screening for malign ant neoplasm of colon Colon cancer screen colonoscopy [facility] Work Phone: Start: 09-22-2021 Creatinine measurement Creatinine mo nitoring [facility] Work Phone: Start: 09-22-2021 Potassium monitoring Potassium monit oring [facility] Work Phone: Start: 09-15-2021 Creatinine measurement Creatinine mo nitoring [facility] Work Phone: Start: 09-15-2021 Potassium monitoring Potassium monit oring [facility] Work Phone: Start: 01-31-2021 Influenza vaccination Flu vacc ine (Season Ended) [facility] Work Phone: Start: 09-18-2020 Subsequent hospital visit by physician 09/18/2020 Hospital Encounter IP Unit Dean Chisholm MD [address] [place], [place] [id number] Frank Ambrosio MD [address] [place] [address] [facility] Start: 07-25-2020 Annual Wellness Visi t [...] Phone: Start: 1975 Lipid panel Lipid screen [facility] Work Phone: Basic Metabolic Pane l w/ Reflex to MG Basic Metabolic Panel w/ Reflex to MG Lab Routine Daily until discontinued starting 09/19/2020, 4 completed [facility] Work Phone: Comment on above: Daily until disconti nued starting 09/19/2020, 4 completed CBC W Auto Different ial panel - Blood CBC auto differential Lab Routine Daily until discontinued starting 09/19/2020, 4 completed [facility] Work Phone: Comment on above: Daily until disconti nued starting 09/19/2020, 4 completed EKG 12 Lead EKG 12 Lead ECG Routine 09/15/2020 10:53 AM EDT [facility] Work Phone: Glucose [Mass/volume ] in Serum or Plasma [facility] Work Phone: Comment on above: As Needed until disc ontinued starting 09/18/2020 4X Daily (AC & HS) u ntil discontinued starting 09/18/2020 MR Lower Extremity Joint Ingram [facility] Nebulizer therapy HHN Treatment Respiratory Care Routine 0600, 1000, 1400, 1800, 2200 until discontinued starting 09/18/2020 [facility] Work Phone: Comment on above: 0600, 1000, 1400, 18 00, 2200 until discontinued starting 09/18/2020 Oxygen therapy [[facility] Data Set] Initiate Oxygen Therapy Protocol Respiratory Care Routine Daily until discontinued starting 09/18/2020 [facility] Work Phone: Comment on above: Daily until disconti nued starting 09/18/2020 Spirometry panel Incentive michael metry Respiratory Care Routine Daily until discontinued starting 09/18/2020 [facility] Work Phone: Comment on above: Daily until disconti nued starting 09/18/2020 Immunizations Immunization Date Immunization Notes Care Provider Fa cility 11-30-2020 Covid ([employer]) [facility] Payers Date Payer Category Payer Medicare [id number] 2024 Medicare [id number] 2024 Self-pay [id number] 2020 Medicare [id number] 2016 Medicaid [id number]. [id number] 1965 Unknown [id number] 1965 Unknown [id number] Medicaid [id number] Unknown [id number] Unknown [id number] Unknown [id number] Social History Date Type Detail Facility Start: 08-21-2020 End: 09-19-2020 Tobacco smoking status SCIS Former smoker [facility] Work Phone: History of tobacco use Cigarette Smoker S [facility] Work Phone: Start: 08-21-2020 End: 09-19-2020 Cigarettes smoked current (pack per day) - Reported [facility] Work Phone: Start: 08-21-2020 End: 09-19-2020 Tobacco use and exposure Never used [facility] Work Phone: Start: 08-21-2020 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 (finding) [facility] Work Phone: Sex Assigned At Not on file [facility] Work Phone: Exposure to SARS-CoV -2 (event) Not sure [facility] Work Phone: Start: 09-15-2020 End: 09-19-2020 Alcohol intake Current drinker of alcohol (finding) [facility] Work Phone: Start: 09-15-2020 Alcohol Comment occasional [facility] Work Phone: Start: 05-08-2021 End: 08-08-2023 Tobacco smoking status NHIS Unknown if ever smoked [facility] Start: 1965 Sex Assigned At Male W [facility] Medical Equipment Procedure Code Equipment Code Equipment Origin al Text Equipment Identifier Dates Pen Needle, Diab etic (Bd Ultra-Fine Patricia Pen Needle) 32 gauge x 5/32 needle Start: 05-08-2021 Pen Needle, Diab etic (Bd Ultra-Fine Patricia Pen Needle) 32 gauge x 5/32 needle Start: 05-08-2021 Pen Needle, Diab etic (Bd Ultra-Fine Patricia Pen Needle) 32 gauge x 5/32 needle Start: 05-08-2021 Pen Needle, Diab etic (Bd Ultra-Fine Patricia Pen Needle) 32 gauge x 5/32 needle Start: 05-08-2021 Pen Needle, Diab etic (Bd Ultra-Fine Patricia Pen Needle) 32 gauge x 5/32 needle Start: 05-08-2021 Pen Needle, Diab etic (Bd Ultra-Fine Patricia Pen Needle) 32 gauge x 5/32 needle Start: 05-08-2021 Pen Needle, Diab etic (Bd Ultra-Fine Patricia Pen Needle) 32 gauge x 5/32 needle Start: 05-08-2021 Pen Needle, Diab etic (Bd Ultra-Fine Patricia Pen Needle) 32 gauge x needle Start: 05-08-2021 Clinical Notes 09-15-2020 to 12-18-2020 Jeff Michael MD - 09/23/2020 7:30 AM Jeff Rao MD - 09/23/2020 7:29 AM Anya Montez RN - 09/23/2020 1:52 AM Cinda Bassett, AIR TUBE RELEASER - PHOTOGRAMMETRIC SURVEYOR - 09/22/2020 12:50 PM EDTInstructions Note Date & Type Note Facility 12-18-2020 Note HNO ID: [id number] Author: RT Pelon(R) Service: ? Author Type: Metal Bonding Helper Type: Progress Notes Filed: 12/18/2020 11:46 AM [...] RT Pelon(R) December 18, 2020 11:32 AM [facility] 12-14-2020 Note HNO ID: [id number] Author: Cristian Kearney MD, PhD Service: ? Author Type: Physician Type: Progress Notes Filed: 12/28/2020 5:30 AM Note Text: Referring Physician: SELF Chief Complaint: left leg amputation pain SUBJECTIVE: Chuck Garza presents to [facility] for the evaluation [...] Drug use: Not Currently Types: Amphetamines Comment: [id number] FAMILY HISTORY Problem Relation Age of Onset [...] Prior ostomy site (more content not included)... [facility] 09-23-2020 Note Patient ID: Chuck Garza Patient's PCP: ROBBIN PALACIO MD Admit Date: 09/18/2020 Discharge Date: 09/23/20 Admitting Physician: Dean Chisholm MD Discharge Physician: JEFF MICHAEL MD Active Discharge Diagnoses: Primary Problem Patient Active Problem List Diagnosis ? 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 Closed fracture of upper end [...] Home Discharged Condition: Stable Follow Up: Dean Chisholm MD [address] [place] [address] [address] [facility] [phone] Schedule an appointment as soon as possible for a visit in 2 weeks Follow-up after surgery. Robbin Palacio MD [address] [facility] [address] [facility] [id number] Diet: as instructed Discharge Medications: Medication List [...] to be involved in this patient's care. 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) Closed fracture of upper end of tibia Closed fracture of acetabulum (HCC) Closed fracture of intertrochanteric section of femur ([facility]) Closed bimalleolar fracture Open dislocation of tarsometatarsal (joint) Closed fracture of metatarsal bone Open wound of knee, leg, and ankle Other specified disorder of intestines Cellulitis and abscess of leg, except foot Peritoneal abscess (HCC) Perforation of intestine ([facility]) Closed fracture of proximal end of right tibia with delayed healing Closed fracture of metatarsal bone of right foot Colostomy in place ([facility]) S/P colostomy takedown Hospital Problems Active Hospital Problems Diagnosis Date Noted Colostomy in place ([facility]) [Z93.3] 09/18/2020 S/P colostomy takedown [Z98.890] The [...] Home Discharged Condition: Stable Follow Up: Dean Chisholm MD [address] [place] [address] [address] [facility] [phone] Schedule an appointment as soon as possible for a visit in 2 weeks Follow-up after surgery. Robbin Palacio MD [address] [facility] [address] [facility] [phone] Diet: as instructed Discharge Medications: Medication [...] documented in this encounter [facility] Work Phone: 09-23-2020 History of Present illness Narrative Images from the original note were not included. Department of Surgery Surgical Service 3 Daily Progress Note PATIENT NAME: Chuck LOPEZ: 1965 ATTENDING PHYSICIAN: Dean Chisholm MD ADMIT DATE: 09/18/2020 TODAY'S DATE: 09/23/2020 [...] Date 09/23/20 0000 - 09/23/20 2359 Shift 2161-2909 7640-4491 8361-6653 24 Hour Total INTAKE Shift Total(mL/kg) OUTPUT Urine(mL/kg/hr) 400 400 Shift Total(mL/kg) 400(4.5) 400(4.5) Weight (kg) 89.8 89.8 89.8 89.8 I/O last 3 completed shifts: In: 800 [P.O.:800] Out: 1650 [Urine:1650] No intake/output data recorded. Data Recent Labs 09/21/20 0302 09/22/20 0308 WBC 7.9 8.7 HGB 15.3 16.2 HCT 47.4 49.5 PLT 198 194 Recent Labs 09/21/20 0302 09/22/20 0308 NA 136 137 K 4.4 4.5 [...] today, f/u in 1-[address] Chisholm. JEFF MICHAEL MD 09/23/2020 7:29 AM Pt refused nightly blood work. Surgery resident notified via [employer]. PAGING: The Acute Pain Service providers are available via [email or web address]. Please reference [employer] for Pain Management Provider SMALL ENGINE TRAINER and direct all questions to the provider listed. Due to the current environment of [place] [address], PPE was worn for the duration of all face to face encounters including but not limited to an N95 in accordance with [facility] and hospital guidelines. 09/22/2020 Referring Physician: Dean Chisholm MD Subjective: We have been asked to see this 55 y.o. male for postoperative pain management s/p Reversal of Lauren. Imaging and labs reviewed. NAEON, no pages. On arrival, patient resting in bed [...] 300 MG Capsule 60.00 30 Ta Kwo [id number] Wal (0258) 0 Objective Findings: Height: 5' 11 (180.3 [...] Date Anemia Chronic pain Colostomy in place ([facility]) 09/18/2020 Depressed Diabetes ([facility]) Encounter for attention to colostomy ([facility]) Hx of blood clots 2016 DVT, IVC filter placed Hyperlipidemia Hypertension Personal history of tobacco use, presenting hazards to health Stage II pressure ulcer of left buttock ([facility]) Stage II pressure ulcer of right buttock ([facility]) 2016 resolved Unstageable pressure ulcer of sacral region ([facility]) 2016 resolved Past Surgical History: Procedure Laterality [...] diagnostic, lauren reversal (ostomy reversal) with Dr. 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 fusion Family History Problem Relation Age of Onset Colon Cancer Neg Hx Patient Active Problem List Diagnosis Multiple closed pelvic fractures with disruption of pelvic lummi ([facility]) Closed fracture of upper end of tibia Closed fracture of acetabulum ([facility]) Closed fracture of intertrochanteric section of femur ([facility]) Closed bimalleolar fracture Open dislocation of tarsometatarsal (joint) Closed fracture of metatarsal bone Open wound of knee, leg, and ankle Other specified disorder of intestines Cellulitis and abscess of leg, except foot Peritoneal abscess ([facility]) Perforation of intestine ([facility]) Closed fracture of proximal end of right tibia with delayed healing Closed fracture of metatarsal bone of right foot Colostomy in place ([facility]) S/P colostomy takedown Review of Systems Constitutional: [...] Acute Pain Service providers are available via [email or web address]. Please reference [employer] for Pain Management Provider SMALL ENGINE TRAINER and direct all questions to the provider [...] Chuck Garza : 1965 ATTENDING PHYSICIAN: Dean Chisholm MD ADMIT DATE: 09/18/2020 TODAY'S DATE: 09/22/2020 [...] of bleeding INTAKE/OUTPUT: Date 09/22/20 0000 - 09/22/202358 Shift 6455-5629 2688-2994 3108-9006 24 Hour Total INTAKE P.O.(mL/kg/hr) 400 400 I.V.(mL/kg) 0(0) 0(0) Shift Total(mL/kg) 400(4.5) 400(4.5) OUTPUT Urine(mL/kg/hr) 400 400 Shift Total(mL/kg) 400(4.5) 400(4.5) Weight (kg) 89.8 89.8 89.8 89.8 I/O last 3 completed shifts: In: 1440 [P.O.:1240; I.V.:200] Out: 1400 [Urine:1400] No intake/output data recorded. 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 Patient admitted for Quintero reversal. Patient now status post open Lauren reversal 09/18. Tolerated liquid diet and advanced to GI Soft diet today. Patient sleeping soundly during RD visit, did not awaken to name call. 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 Please reference [facility] for Pain Management Provider SMALL ENGINE TRAINER and direct all questions to the provider listed. Due to the current environment of [place] [id number], PPE was worn for the duration of all face to face encounters including but not limited to an N95 in accordance with CDC and hospital guidelines. 09/21/2020 Referring Physician: Dean Chisholm MD Subjective: We have been asked to [...] 300 MG Capsule 60.00 30 Ta Kwo [id number] [facility] ([id number]) 0 Objective Findings: Height: 5' 11 (180.3 [...] Date Anemia Chronic pain Colostomy in place (HCC) 09/18/2020 Depressed Diabetes ([facility]) Encounter for attention to colostomy ([facility]) Hx of blood clots 2016 DVT, IVC filter placed Hyperlipidemia Hypertension Personal history of tobacco use, presenting hazards to [facility] Stage II pressure ulcer of left buttock (HCC) Stage II pressure ulcer of right buttock (HCC) 2016 resolved Unstageable pressure ulcer of sacral region (HCC) 2016 resolved Past Surgical History: Procedure Laterality Date APPENDECTOMY BONY PELVIS SURGERY 02/03/2015 uniplane pelvic ex fix application COLONOSCOPY 08/21/2020 COLOSTOMY CYSTOSCOPY 09/18/2020 Bilateral Ureteral catheters, pre op for Dr Chisholm. [place] FEMUR SURGERY Left 03/06/2015 [place]ird[place]estone procedure proximal femur fx FOOT SURGERY Right 02/11/2015 ORIF 3rd,4th and 5th MT fx FOOT SURGERY Right 02/11/2015 ORIF lisfranc with 1st TMT fusion KNEE SURGERY Right 02/01/2015 application of spanning fixator KNEE SURGERY Right 02/21/2015 ORIF bicondylar tibial plateau fx; repair lateral meniscus LAPAROSCOPY 09/18/2020 diagnostic, lauren reversal (ostomy reversal) with Dr. 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 Please reference [facility] Provider SMALL ENGINE TRAINER and direct all questions to the provider listed. Images from the original note were not included. Department of Surgery Surgical Service 3 Daily Progress Note PATIENT NAME: Chuck Garza : 1965 ATTENDING PHYSICIAN: Dean Chisholm MD ADMIT DATE: 09/18/2020 TODAY'S DATE: 09/21/2020 [...] of bleeding INTAKE/OUTPUT: Date 09/21/20 0000 - 09/21/202358 Shift [id number] 9337-9730 9949-6034 24 Hour Total INTAKE P.O.(mL/kg/hr) 500(0.7) 500 [...] Acute Pain Service providers are available via [email or web address]. Please reference [facility] Provider SMALL ENGINE TRAINER and direct all questions to the provider listed. Due to the current environment of [place] [address], PPE was worn for the duration of all face to face encounters including but not limited to an N95 in accordance with [facility] and hospital guidelines. 09/20/2020 Referring Physician: Dean Chisholm MD Subjective: We have been asked to [...] Gabapentin 300 MG Capsule 60.00 30 Ta [facility] [place] [id number] [facility] ([id number]) 0 Objective Findings: Height: 5' 11 (180.3 [...] Date Anemia Chronic pain Colostomy in place ([facility]) 09/18/2020 Depressed Diabetes ([facility]) Encounter for attention to colostomy ([facility]) Hx of blood clots 2016 DVT, IVC filter placed Hyperlipidemia Hypertension Personal history of tobacco use, presenting hazards to health Stage II pressure ulcer of left buttock ([facility]) Stage II pressure ulcer of right buttock ([facility]) 2016 resolved Unstageable pressure ulcer of sacral region ([facility]) 2016 resolved Past Surgical History: Procedure Laterality Date APPENDECTOMY BONY PELVIS SURGERY 02/03/2015 uniplane pelvic ex fix application COLONOSCOPY 08/21/2020 COLOSTOMY CYSTOSCOPY 09/18/2020 Bilateral Ureteral catheters, pre op for Dr Chisholm. [place] FEMUR SURGERY Left 03/06/2015 girdlestone procedure proximal femur fx FOOT SURGERY Right 02/11/2015 ORIF 3rd,4th and 5th MT fx FOOT SURGERY Right 02/11/2015 ORIF lisfranc with 1st TMT fusion KNEE SURGERY Right 02/01/2015 application of spanning fixator KNEE SURGERY Right 02/21/2015 ORIF bicondylar tibial plateau fx; repair lateral meniscus LAPAROSCOPY 09/18/2020 diagnostic, lauren reversal (ostomy reversal) with Dr. 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 fusion Family History Problem Relation Age of Onset Colon Cancer Neg Hx Patient Active Problem List Diagnosis Multiple closed pelvic fractures with disruption of pelvic lummi ([facility]) Closed fracture of upper end of tibia Closed fracture of acetabulum ([facility]) Closed fracture of intertrochanteric section of femur ([facility]) Closed bimalleolar fracture Open dislocation of tarsometatarsal (joint) Closed fracture of metatarsal bone Open wound of knee, leg, and ankle Other specified disorder of intestines Cellulitis and abscess of leg, except foot Peritoneal abscess ([facility]) Perforation of intestine ([facility]) Closed fracture of proximal end of right tibia with delayed healing Closed fracture of metatarsal bone of right foot Colostomy in place ([facility]) S/P colostomy takedown Review of Systems Constitutional: [...] Acute Pain Service providers are available via [email or web address]. Please reference [facility] Provider SMALL ENGINE TRAINER and direct all questions to the provider listed. Images from the original note were not included. Department of Surgery Surgical Service 3 Daily Progress Note PATIENT NAME: Chuck Garza : 1965 ATTENDING PHYSICIAN: Dean Chisholm MD ADMIT DATE: 09/18/2020 TODAY'S DATE: 09/20/2020 [...] Date 09/20/20 0000 - 09/20/20 2359 Shift [id number] 6366-0420 7739-5436 24 Hour Total INTAKE P.O.(mL/kg/hr) 500(0.7) 500 I.V.(mL/kg) 780(8.7) 780(8.7) Shift Total(mL/kg) 1280(14.3) 1280(14.3) OUTPUT Urine(mL/kg/hr) 800(1.1) 800 Shift Total(mL/kg) 800(8.9) 800(8.9) Weight (kg) 89.8 89.8 89.8 89.8 I/O last 3 completed shifts: In: 2244 [P.O.:500; I.V.:1744] Out: 3800 [Urine:3800] No intake/output data recorded. Data Recent Labs 09/19/203 09/20/20 0348 WBC 10.4 9.1 HGB 15.4 15.1 HCT 46.7 45.8 PLT 175 175 Recent Labs 09/19/203 09/20/20 0348 NA 133* 139 K 4.6 [...] -[facility] for glucose management -wdw Dr. Scout Dominguez, DO 09/20/2020 11:52 AM Attending Supervising Physician's [...] follow. Eva Mayers OTR/L Physical Therapy Facility/Department: [facility] Initial Assessment NAME: Chuck Garza [...] Ambulation Assistance: Independent Transfer Assistance: Independent Active Chief Librarian Extension Department: Yes Mode of Transportation: Car Occupation: On [...] Plan of Care supervision is transferred to [facility] Rehab Department Physical Therapist. PT wore [...] Chuck Garza : 1965 ATTENDING PHYSICIAN: Dean Chisholm MD ADMIT DATE: 09/18/2020 TODAY'S DATE: 09/19/2020 [...] Date 09/19/20 0000 - 09/19/20 2359 Shift 2092-3816 4616-0265 0764-9196 24 Hour Total INTAKE P.O.(mL/kg/hr) 500 500 I.V.(mL/kg) 1187(13.2) 1187(13.2) Shift Total(mL/kg) 1687(18.8) 1687(18.8) OUTPUT Urine(mL/kg/hr) 550 550 Shift Total(mL/kg) 550(6.1) 550(6.1) Weight (kg) 89.8 89.8 89.8 89.8 I/O last 3 completed shifts: In: 3687 [P.O.:500; I.V.:3187] Out: 1390 [Urine:1290; Blood:100] No intake/output data recorded. Data Recent Labs 09/19/20 0033 WBC 10.4 HGB 15.4 HCT 46.7 PLT 175 Recent Labs 09/19/20 0033 NA 133* K 4.6 CL 104 CO2 [...] documented in this encounter [facility] Work Phone: 09-18-2020 Hospital Discharge instructions Jeff Michael MD - 09/18/2020 Images [...] pain. -Abdominal distention. documented in this encounter [facility] [employer] Phone: 09-15-2020 Hospital Discharge instructions Hayley Sr RN - 09/15/2020 Please bring your [facility] [employer] Surgical Information folder on the day of [...] use Additional instructions: read Diabetes Guidelines for Surgery, shower kit as instructed You will receive a reminder call the day before surgery with your Same Day Surgery arrival time. If you have specific questions, please call your surgeon. documented in this encounter [facility] Work Phone: Evaluation note Diagnosis Screening for viral disease Special screening examination for unspecified viral disease documented in this encounter [facility] Work Phone: Evaluation note* Diagnosis S/P colostomy takedown- Primary Colostomy in place (HCC) Colostomy status documented in this encounter [facility] Work Phone: Evaluation noteNo assessment information available [facility] Work Phone: Evaluation note* Diagnosis Onset Date Resolution Status Diabetes chronic Diabetes chronic HTN (hypertension) chronic [facility] Work Phone: Evaluation note* Diagnosis Onset Date Resolution Status Right shoulder pain acute [facility] Work Phone: Discharge Instructions * Instructions* Naty [...] FoundDocuments on File Type Date Recorded Patient Global Marketing Coordinator Expl anation ACP-Advance Directive ACP-Power of Customer Service Engineer Latest Code Status on File Code Status [...] Code 08/21/2020 1:52 PM 08/21/2020 5:14 PM Advance Directive Response Recorded Date/ Time Advance Directives No April 1:51pm Living Will No April 12, 2 021 4:04pm Power of Customer Service Engineer Yes April 12, 2021 4:04pm Advance Directive Response Recorded Date/ Time Advance Directives No April 12:51pm Living Will No April 12, 2 021 3:04pm Power of Customer Service Engineer Yes April 12, 2021 3:04pm Advance Directive Response Recorded Date/ Time Advance Directives No August 05 1:39pm Living Will No August 06, 2023 1:39pm Power of Customer Service Engineer Yes August 05 1:39pm Advance Directive Response Recorded Date/ Time Advance Directives No August 05 2:39pm Living Will No August 06, 2023 2:39pm Power of Customer Service Engineer Yes August 05 2:39pm Summary Purpose Family History No Family History Records Found Relationship Condition Age at Onset Recorded Date/T brian Not Specified Diabetes mellitus Unknown Coronary artery disease Unknown Chronic obstructive pulmonary disease Unk nown Hypertension Unknown Chief Complaint and Reason for Visit Chief Complaint TYPE 2 DM CKD3 Chief Complaint TYPE 2 DM CKD3 URINE SAMPLE Chief Complaint 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 Intended supply: 7 days. Take lowest dose possible to manage pain 28 tablet 0 09/18/2020 09/25/2020 (unrecognized sect ion and content) No Status Records FoundNo Status Records FoundNo Status Records FoundNo Status Records Found INFORMATION SOURCE (unrecogn ized section and content) DATE CREATED AUTHOR 09/28/2020 [facility] DATE CREATED AUTHOR AUTHOR'S ORGANIZ ATION 07/05/2021 [facility] DATE CREATED AUTHOR AUTHOR'S ORGANIZ ATION 11/22/2021 [facility] DATE CREATED AUTHOR AUTHOR'S ORGANIZ ATION 12/28/2024 [facility] Goals (unrecognized section and content) Goals may be documented in a n alternate sectionGoals may be documented in an alternate sectionGoals may be documented in an alternate sectionGoals may be documented in an alternate sectionGoals may be documented in an alternate sectionGoals may be documented in an alternate sectionGoals may be documented in an alternate sectionGoals may be documented in an alternate section Care Teams (unrecognized sec tion and content) Team Status: Active Member Role Status Dates Dr. Miquel Palacio MD Family Provider Active Dr. Miquel Palacio MD Primary Care Provider Active Team Status: Inactive Member Role Status Dates Dr. Miquel Palacio MD Primary Care Provider, Attending Provider Active Team Status: Inactive Member Role Status Dates Dr. Miquel Palacio MD Primary Care Provider Active Dr. Suzette Barrera DO Attending Provider Active Team Status: Inactive Member Role Status Dates Dr. Miquel Palacio MD Primary Care Provider, Referring Provider Active Ritchie Harris MD Attending Provider Active Team Status: Inactive Member Role Status Dates Dr. Miquel Palacio MD Primary Care Provider Active Dr. Abdon Alvarez MD Attending Provider Active Team Status: Inactive Member Role Status Dates Dr. Miquel Palacio MD Primary Care Provider Active Dr. Suzette Barrera DO Attending Provider, Referring P flavia Active Team Status: Active Member Role Status Dates Dr. Miquel Palacio MD Primary Care Provider, Attending Provider Active Team Status: Inactive Member Role Status Dates Dr. Miquel Palacio MD Primary Care Provider Active Ritchie Harris MD Attending Provider, Referring Prov ider Active FOR RECORDS PERTAINING TO PATIENTS WHO ARE [...] BASED ON THE PRIMARY CLINICAL RECORDS. [facility] [employer] [facility]. provides no warranty or guarantee of the accuracy or completeness of information in this document.
[2025-03-30 14:19] LABS: Hematocrit 48.9 % (40-54); Hemoglobin 16.3 g/dL (13.0-16.5); Immature Granulocytes Count 0.040 X10^3/uL (0.0-0.0); Mean Corp Hgb Conc 33.3 g/dL (32-36); Mean Corpuscular Volume 83.7 fL (80-94); Mean Platelet Vol. 11.2 fl (6.2-12.0); NRBC Flagged by Analyzer 0 % (0-5); Platelet Count 248 K/mm3 (150-450); RBC Distribution Width CV 12.9 % (11.6-14.6); RBC Distribution Width SD 38.7 fl (35.1-43.9); Red Blood Count 5.84 M/mm3 (4.6-6.2); White Blood Count 9.0 K/mm3 (4.4-11.0)
[2025-03-30 14:49] LABS: Cholesterol 182 mg/dL (<=200); Low Density Lipoprotein Calc. 108 mg/dL; PSA,Total- Diagnostic 0.55 ng/mL (0.00-4.00); Triglycerides 204 mg/dL; Very Low Density Lipoprotein 41 mg/dL (5-40); cholesterol:hdl ratio screen 4.75
[2025-03-30 15:13] LABS: AST(SGOT) 14 U/L (<=37); Alanine Aminotransfer ALT/SGPT 11 U/L (<=46); Albumin, Serum 3.9 g/dL (3.5-5.0); Alkaline Phosphatase 70 U/L (40-129); Anion Gap 11 (5-15); BUN 14 mg/dL (4-19); BUN/Creat Ratio 16.3 RATIO (10-20); Calcium,Total 10.2 mg/dL (7.6-11.0); Carbon Dioxide 22.7 mmol/L (21.0-32.0); Chloride 99 mmol/L (98-108); Globulin 3.2 g/dL (2.2-4.2); Potassium 4.5 mmol/L (3.3-5.1)
[2025-03-30 15:27] LABS: Glucose 484 mg/dL (70-99)
== END | disposition home or self-care (01) ==
LOC: MTLAB 11:45
PROVIDERS: PCP Nurse Practitioner Family; Referring Provider Nurse Practitioner Family; Visit Provider Nurse Practitioner Family
DX: M25.551 Pain in right hip (principal); E10.40 Type 1 diabetes mellitus with diabetic neuropathy, unspecified; E78.5 Hyperlipidemia, unspecified; I10 Essential (primary) hypertension
CPT/HCPCS: 36415; 73502; 80053; 80061; 83036; 84153; 85025